=== PATIENT | female | born 1940 | race Caucasian/White ===

== ENCOUNTER 2021-12-10 16:37 | Emergency (ER) | payer BC, MEDICARE ==
[2021-12-10] MEDS ORDERED: Cardizem IV 50 MG/10 ML IV ONE ×2 (17:08→17:11)
--- NOTE | 2021-12-10 17:23 | ERPHSYRPT ---
- History of Present Illness Source: patient Exam Limitations: no limitations Patient Subjective Stated Complaint: PT HERE FOR HYPERTENSION AND ON EPISODE OF FAST HEART RATE TDAY Triage Nursing Assessment: PT ALERT, WALKED IN, RESP EASY, SKIN W/D/P, NO EDEMA NOTED, MOVES ALL EXT WELL Physician History: 81 yo wf w palpatations since 14:30 today. Pt denies chest pain/dyspnea/N/V/D/melena/hematochezia. Pt was walking in a store when it started. She arrived in [facility] on monitor but developed Afib wRVR during triage in room. IV access started, and 15mg IV Cardizem given which slowed ventricular response to 110-120. She denies h/o Afib but does have a h/o [place]/Stent/DM/hyperlipidemia. Timing/Duration: other (0) Activities at Onset: activity (Walking in store) Quality: other (No pain) Location: other (No pain) Chest Pain Radiation: no radiation Severity of Pain-Max: none Severity of Pain-Current: none Modifying Factors: Improves With: nothing Nitro Today/Relief: no nitro taken today Aspirin Treatment Today: 81 mg x 2 Associated Symptoms: No nausea, No vomiting, No abdominal pain, No shortness of breath, No heartburn, No diaphoresis, No cough, No chills, No chest pain, No fever, No headaches, No loss of appetite, No malaise, No rash, No syncope, No seizure, No weakness Prior Chest Pain/Cardiac Workup: heart attack Allergies/Adverse Reactions: morphine Allergy (Verified 12/10/21 17:06) Home Medications: Furosemide [Lasix] 1 ea DAILY 12/10/21 [History] Levothyroxine Sodium [Euthyrox] 1 ea DAILY 12/10/21 [History] Oxybutynin Chloride 10 mg Xl [Ditropan Xl 10 MG] 10 mg PO DAILY 12/10/21 [History] PANTOPRAZOLE 40 mg Tablet [Protonix 40MG Tablet] 40 mg PO QAM 12/10/21 [History] Sertraline HCl [Zoloft] 1 ea DAILY 12/10/21 [History] Hx Tetanus, Diphtheria Vaccination/Date Given: No Hx Influenza Vaccination/Date Given: Yes Hx Pneumococcal Vaccination/Date Given: Yes Immunizations Up to Date: Yes Travel Risk - International Travel Have you traveled outside of the country in past 3 weeks: No - Coronavirus Screening Are you exhibiting any of the following symptoms?: No - Vaccine Status Have you recieved a Covid-19 vaccination: Yes Extension Service Agent: Moderna - Vaccination Dates Date of 2cond Vaccination (if applicable): 2020 - Review of Systems Constitutional: No Symptoms Eyes: No Symptoms Ears, Nose, & Throat: No Symptoms Respiratory: No Symptoms Cardiac: No Symptoms, Palpitations Abdominal/Gastrointestinal: No Symptoms Genitourinary Symptoms: No Symptoms Musculoskeletal: No Symptoms Skin: No Symptoms Neurological: No Symptoms Psychological: No Symptoms Endocrine: No Symptoms Hematologic/Lymphatic: No Symptoms Immunological/Allergic: No Symptoms - Past Medical History Neurological History: No Pertinent History Cardiac History: Coronary Artery Disease, Hypertension, Myocardial Infarction ([place]), Other Respiratory History: No Pertinent History Endocrine Medical History: Diabetes Type II Musculoskeletal History: Degenerative Disk Disease, Osteoarthritis - Past Surgical History Past Surgical History: Yes Cardiac: Cardiac Catheterization, Cardiac Stent Gastrointestinal: Cholecystectomy Musculoskeletal: Orthopedic Surgery Female Surgical History: Hysterectomy Other Surgical History: RIGHT KNEE - Social History Smoking Status: Never smoker Exposure to second hand smoke: No Drug Use: none Patient Lives Alone: Yes - Nursing Vital Signs Nursing Vital Signs: Initial Vital Signs Temperature 97.2 F 12/10/21 16:53 Pulse Rate 81 12/10/21 16:53 Respiratory Rate 18 12/10/21 16:53 Blood Pressure 114/97 12/10/21 16:53 O2 Sat by Pulse Oximetry 96 12/10/21 16:53 Pain Scale Pain Intensity 0 WNL - Physical Exam General Appearance: no apparent distress Eye Exam: PERRL/EOMI, eyes nml inspection Ears, Nose, Throat Exam: normal ENT inspection, TMs normal, pharynx normal, moist mucous membranes Neck Exam: normal inspection, non-tender, supple, full range of motion, No meningismus, No mass, No Brudzinski, No Kernig's, No carotid bruit Respiratory Exam: normal breath sounds, lungs clear, airway intact, No respiratory distress Cardiovascular Exam: regular rate/rhythm, capillary refill <2 sec, other (Pt later developed Afib w RVR), No murmur Gastrointestinal/Abdomen Exam: soft, normal bowel sounds, No tenderness Back Exam: normal inspection, normal range of motion, No CVA tenderness, No vertebral tenderness Extremity Exam: normal inspection, normal range of motion Neurologic Exam: alert, oriented x 3, cooperative, transplant case manager II-XII nml as tested, normal mood/affect, nml cerebellar function, nml station & gait, sensation nml Skin Exam: normal color, warm, dry, No rash Lymphatic Exam: No adenopathy SpO2 Interpretation: normal SpO2: 96 O2 Delivery: Room Air - Course EKG Interpreted by Me: RATE (Afib w RVR/Rate 138/Prolonged QTc/Poor Rwave progression/Nonspecific ST changes) - Radiology Exams Chest X-ray Interpretation: Interpreted by me (NAD) Ordered Tests: Active Orders 24 hr Category Date Time Status EKG-ER Only STAT Care 12/10/21 17:19 Active CHEST 1 VIEW (PORTABLE) Stat Exams 12/10/21 17:35 Taken CBC W DIFF Stat Lab 12/10/21 17:20 Completed CMP Stat Lab 12/10/21 17:20 Completed NT PRO BNP Stat Lab 12/10/21 17:20 Completed PROTIME WITH INR Stat Lab 12/10/21 17:20 Completed PTT Stat Lab 12/10/21 17:20 Completed TROPONIN Q4H Lab 12/10/21 17:20 Completed TROPONIN Q4H Lab 12/10/21 21:30 Ordered TROPONIN Q4H Lab 12/11/21 01:30 Ordered Medication Summary Generic Name Dose Route Start Last Admin Trade Name Freq PRN Reason Stop Dose Admin Diltiazem HCl 100 mls @ 5 mls/hr 12/10/21 17:27 12/10/21 18:22 Cardizem Drip 100 Mg/100 Ml D5w IV 01/09/22 17:26 5 mg/hr .Q20H PRN 5 mls/hr HEART RATE/ A-FIB Administration Protocol 5 MG/HR Discontinued Medications Generic Name Dose Route Start Last Admin Trade Name Freq PRN Reason Stop Dose Admin Diltiazem HCl 15 mg 12/10/21 17:08 12/10/21 17:13 Diltiazem Hcl Iv 5 Mg/Ml Vial IV 12/10/21 17:09 15 mg STAT ONE Administration Diltiazem HCl Confirm 12/10/21 17:11 Diltiazem Hcl Iv 5 Mg/Ml Vial Administered 12/10/21 17:12 Dose 50 mg IV .STK-MED ONE Enoxaparin Sodium 90 mg 12/10/21 18:32 12/10/21 18:38 Enoxaparin Sodium 80 Mg/0.8 Ml Syringe 1 mg/kg (90 mg) 12/10/21 18:33 90 mg SQ Administration STAT ONE Enoxaparin Sodium Confirm 12/10/21 18:34 Enoxaparin Sodium 120 Mg/0.8 Ml Syringe Administered 12/10/21 18:35 Dose 120 mg SQ .STK-MED ONE Lab/Rad Data: Laboratory Result Diagrams 12/10/21 17:20 12/10/21 17:20 Laboratory Results 12/10/21 12/10/21 12/10/21 Range/Units 17:20 17:20 17:20 WBC (4.0-10.5) x10^3/uL RBC (4.1-5.4) x10^6/uL Hgb (12.0-16.0) g/dL Hct (35-47) % MCV (78-100) fL MCH (26-32) pg MCHC (32-36) g/dL RDW (11.5-14.0) % Plt Count (150-450) x10^3/uL MPV (7.5-11.0) fL Gran % (36.0-66.0) % Immature Gran % (Auto) (0.00-0.4) % Nucleat RBC Rel Count (0.00-0.1) % Eos # (Auto) (0-0.5) x10^3/uL Immature Gran # (Auto) (0.00-0.03) x10^3u/L Absolute Lymphs (auto) (1.0-4.6) x10^3/uL Absolute Monos (auto) (0.0-1.3) x10^3/uL Absolute Nucleated RBC (0.00-0.01) x10^3u/L Lymphocytes % (24.0-44.0) % Monocytes % (0.0-12.0) % Eosinophils % (0.00-5.0) % Basophils % (0.0-0.4) % Absolute Granulocytes (1.4-6.9) x10^3/uL Basophils # (0-0.4) x10^3/uL PT 11.2 (9.4-12.5) SECONDS INR 1.06 (0.8-3.0) APTT 26.1 (25.1-36.5) SECONDS Sodium 141 (137-145) mmol/L Potassium 3.8 (3.5-5.1) mmol/L Chloride 105 (98-107) mmol/L Carbon Dioxide 24 (22-30) mmol/L Anion Gap 15.7 H (5-15) MEQ/L BUN 20 H (7-17) mg/dL Creatinine 0.93 (0.52-1.04) mg/dL Estimated GFR > 60.0 ML/MIN Glucose 150 H (74-106) mg/dL Calcium 9.1 (8.4-10.2) mg/dL Total Bilirubin 1.00 (0.2-1.3) mg/dL AST 49 H (14-36) U/L ALT 25 (0-35) U/L Alkaline Phosphatase 44 (38-126) U/L Troponin I < 0.012 (0.000-0.034) ng/mL NT-Pro-B Natriuret Pep 244 (0-1800) pg/mL Serum Total Protein 7.3 (6.3-8.2) g/dL Albumin 4.4 (3.5-5.0) g/dL 12/10/21 Range/Units 17:20 WBC 7.7 (4.0-10.5) x10^3/uL RBC 4.79 (4.1-5.4) x10^6/uL Hgb 13.5 (12.0-16.0) g/dL Hct 42.7 (35-47) % MCV 89.1 (78-100) fL MCH 28.2 (26-32) pg MCHC 31.6 L (32-36) g/dL RDW 14.5 H (11.5-14.0) % Plt Count 157 (150-450) x10^3/uL MPV 10.9 (7.5-11.0) fL Gran % 38.0 (36.0-66.0) % Immature Gran % (Auto) 0.1 (0.00-0.4) % Nucleat RBC Rel Count 0.0 (0.00-0.1) % Eos # (Auto) 0.29 (0-0.5) x10^3/uL Immature Gran # (Auto) 0.01 (0.00-0.03) x10^3u/L Absolute Lymphs (auto) 3.70 (1.0-4.6) x10^3/uL Absolute Monos (auto) 0.72 (0.0-1.3) x10^3/uL Absolute Nucleated RBC 0.00 (0.00-0.01) x10^3u/L Lymphocytes % 48.1 H (24.0-44.0) % Monocytes % 9.4 (0.0-12.0) % Eosinophils % 3.8 (0.00-5.0) % Basophils % 0.6 (0.0-0.4) % Absolute Granulocytes 2.93 (1.4-6.9) x10^3/uL Basophils # 0.05 (0-0.4) x10^3/uL PT (9.4-12.5) SECONDS INR (0.8-3.0) APTT (25.1-36.5) SECONDS Sodium (137-145) mmol/L Potassium (3.5-5.1) mmol/L Chloride (98-107) mmol/L Carbon Dioxide (22-30) mmol/L Anion Gap (5-15) MEQ/L BUN (7-17) mg/dL Creatinine (0.52-1.04) mg/dL Estimated GFR ML/MIN Glucose (74-106) mg/dL Calcium (8.4-10.2) mg/dL Total Bilirubin (0.2-1.3) mg/dL AST (14-36) U/L ALT (0-35) U/L Alkaline Phosphatase (38-126) U/L Troponin I (0.000-0.034) ng/mL NT-Pro-B Natriuret Pep (0-1800) pg/mL Serum Total Protein (6.3-8.2) g/dL Albumin (3.5-5.0) g/dL - Progress Progress: improved Air Movement: good Progress Note: 12/10/21 18:[address] [facility] 15mg IV Cardizem w mild decrease in HR Cardizem drip at 5mg/Hr 12/10/21 20:01 [facility] in stable condition Counseled pt/family regarding: lab results, diagnosis, need for follow-up, rad results - Departure Departure Disposition: Transfer Clinical Impression: New onset a-fib Condition: Stable Critical Care Time: Yes Critical Care Time(excluding separately billable procedures): Critical 30-74 mins Referrals: JAGJIT TAVAREZ [Primary Care Provider] - Follow up/PCP as directed
[2021-12-10] MEDS ORDERED: CARDIZEM DRIP 100 MG/100 ML D5W 100 ML IV PRN (17:27)
[2021-12-10 17:29] LABS: Absolute Neutrophil Ct (ANC) 2.93 x10^3/uL (1.4-6.9); Basophil (Absolute #) 0.05 x10^3/uL (0-0.4); Eosinophil % 3.8 % (0.00-5.0); Eosinophil (Absolute #) 0.29 x10^3/uL (0-0.5); Hematocrit 42.7 % (35-47); Hemoglobin 13.5 g/dL (12.0-16.0); Lymphocytes % 48.1 % (24.0-44.0); Mean Cell Volume 89.1 fL (78-100); Mean Corpuscular Hemoglobin 28.2 pg (26-32); Mean Corpuscular Hgb Concent. 31.6 g/dL (32-36); Mean Platelet Volume 10.9 fL (7.5-11.0); Monocyte (Absolute #) 0.72 x10^3/uL (0.0-1.3); Monocytes % 9.4 % (0.0-12.0); Platelet Count 157 x10^3/uL (150-450); Red Blood Count 4.79 x10^6/uL (4.1-5.4); Red Cell Distribution Width 14.5 % (11.5-14.0); White Blood Count 7.7 x10^3/uL (4.0-10.5)
[2021-12-10 17:57] LABS: ALBUMIN 4.4 g/dL (3.5-5.0); ALKALINE PHOSPHATASE 44 U/L (38-126); ANION GAP 15.7 MEQ/L (5-15); BLOOD UREA NITROGEN 20 mg/dL (7-17); CHLORIDE 105 mmol/L (98-107); Calcium 9.1 mg/dL (8.4-10.2); Carbon Dioxide 24 mmol/L (22-30); Creatinine 1 0.93 mg/dL (0.52-1.04); EST GLOMERULAR FILTRATION RATE > 60.0 ML/MIN; Glucose 150 mg/dL (74-106); Potassium 3.8 mmol/L (3.5-5.1); SGOT/AST 49 U/L (14-36); SGPT/ALT 25 U/L (0-35); SODIUM 141 mmol/L (137-145); Total Protein 7.3 g/dL (6.3-8.2)
[2021-12-10 17:59] LABS: INR 1.06 (0.8-3.0); PROTIME 11.2 SECONDS (9.4-12.5); PTT 26.1 SECONDS (25.1-36.5)
[2021-12-10 18:08] LABS: NT PRO BNP 244 pg/mL (0-1800)
[2021-12-10 18:17] VITALS: O2SAT 96
[2021-12-10] MEDS ORDERED: CARDIZEM DRIP 100 MG/100 ML D5W 100 ML IV ONE (18:18)
[2021-12-10] MEDS ORDERED: ENOXAPARIN SODIUM SQ ONE ×2 (18:32→18:34)
[2021-12-10 19:10] VITALS: BP 138/68; PULSE 118
--- NOTE | 2021-12-11 08:38 | XRAY ---
Indication: Palpitations. Comparison: February 20, 2019 Portable chest demonstrates interval clearing of left base airspace opacity with now minimal fibrosis/scarring. Remaining heart and lungs unremarkable again with tortuous descending aorta. Bony thorax intact again with osteopenia, degenerative changes, and scoliosis. Impression: Nonacute chest with chronic features.
== END 2021-12-10 19:40 | disposition short-term general hospital (02) ==
LOC: ED 16:37
DX: I48.91 Unspecified atrial fibrillation (principal); E11.9 Type 2 diabetes mellitus without complications; E78.5 Hyperlipidemia, unspecified; I10 Essential (primary) hypertension; Z79.899 Other long term (current) drug therapy
CPT/HCPCS: 36415; 71045; 80053; 83880; 84484; 85025; 85610; 85730; 93005; 96365; 96372; 96374; 99284; 99291; J1650

== ENCOUNTER 2022-01-18 11:11 | Emergency (ER) | payer BC, MEDICARE ==
[2022-01-18] MEDS ORDERED: Zofran 4 MG/2 ML VIAL IV ONE (11:29)
[2022-01-18] MEDS ORDERED: Hydromorphone 1 mg/ml Injection IV ONE ×2 (11:29→13:21)
[2022-01-18] MEDS ORDERED: Sodium Chloride 0.9% 1000 ML 1,000 ML IV SCH ×2 (11:30→14:00)
[2022-01-18] MEDS ORDERED: Zofran 4 MG/2 ML VIAL ONE (11:32)
[2022-01-18] MEDS ORDERED: Hydromorphone 1 mg/ml Injection ONE ×2 (11:33→13:13)
[2022-01-18 11:43] LABS: Absolute Neutrophil Ct (ANC) 2.86 x10^3/uL (1.4-6.9); Basophil (Absolute #) 0.04 x10^3/uL (0-0.4); Eosinophil % 3.5 % (0.00-5.0); Eosinophil (Absolute #) 0.26 x10^3/uL (0-0.5); Hemoglobin 13.8 g/dL (12.0-16.0); Lymphocyte (Absolute #) 3.65 x10^3/uL (1.0-4.6); Lymphocytes % 48.9 % (24.0-44.0); Mean Corpuscular Hemoglobin 28.2 pg (26-32); Mean Corpuscular Hgb Concent. 31.4 g/dL (32-36); Mean Platelet Volume 10.9 fL (7.5-11.0); Monocyte (Absolute #) 0.65 x10^3/uL (0.0-1.3); Monocytes % 8.7 % (0.0-12.0); Neutrophil % 38.3 % (36.0-66.0); Platelet Count 156 x10^3/uL (150-450); Red Blood Count 4.89 x10^6/uL (4.1-5.4); Red Cell Distribution Width 13.9 % (11.5-14.0); White Blood Count 7.5 x10^3/uL (4.0-10.5)
[2022-01-18 11:56] LABS: ALBUMIN 4.4 g/dL (3.5-5.0); ANION GAP 13.2 MEQ/L (5-15); BILIRUBIN,TOTAL 1.2 mg/dL (0.2-1.3); Calcium 9.3 mg/dL (8.4-10.2); Creatinine 1 0.97 mg/dL (0.52-1.04); EST GLOMERULAR FILTRATION RATE 58.4 ML/MIN; Total Protein 7.6 g/dL (6.3-8.2)
--- NOTE | 2022-01-18 12:31 | ERPHSYRPT ---
- History of Present Illness Time Seen by Provider: 01/18/22 11:24 Historian: patient Exam Limitations: no limitations Patient Subjective Stated Complaint: pt here for upper abd pain that radiates to back.with nausea, pain started at 0730 today Triage Nursing Assessment: pt alert, resp easy, skin w/d/p ,no edema, vomiting, abd soft but tneder to touch Physician History: 81 years old female with history of hypothyroidism, atrial fibrillation on Eliquis presented in the ER with chief complaint of abdominal pain Since 7 AM today. Patient reports pain started initially in the left lower quadrant and gradually moved to left upper quadrant and upper abdomen, moderate to severe sharp, aggravated with movements palpation and no significant relieving factors. Patient reports nausea with one episode of vomiting. Denies any diarrhea or constipation. Does have history of hysterectomy and cholecystectomy. Denies fe janiya or chills. No history of AAA. Timing/Duration: today, constant, gradual onset, worse Activities at Onset: rest Quality: sharpness Abdominal Pain Onset Location: LUQ, LLQ, epigastric Severity of Pain-Max: severe Severity of Pain-Current: severe Modifying Factors: Worsens With: movement, palpation Associated Symptoms: nausea, vomiting Previous symptoms: no prior history Allergies/Adverse Reactions: morphine Allergy (Verified 01/18/22 11:20) Home Medications: Furosemide [Lasix] 1 ea DAILY 12/10/21 [History] Levothyroxine Sodium [Euthyrox] 1 ea DAILY 12/10/21 [History] Oxybutynin Chloride 10 mg Xl [Ditropan Xl 10 MG] 10 mg PO DAILY 12/10/21 [History] PANTOPRAZOLE 40 mg Tablet [Protonix 40MG Tablet] 40 mg PO QAM 12/10/21 [History] Sertraline HCl [Zoloft] 1 ea DAILY 12/10/21 [History] Apixaban [Eliquis 5 mg Tablet] 1 ea BID 01/18/22 [History] Hx Tetanus, Diphtheria Vaccination/Date Given: No Hx Influenza Vaccination/Date Given: Yes Hx Pneumococcal Vaccination/Date Given: Yes Immunizations Up to Date: Yes Travel Risk - International Travel Have you traveled outside of the country in past 3 weeks: No - Coronavirus Screening Are you exhibiting any of the following symptoms?: No Close contact with a COVID-19 positive Pt in past 14-21 Days: No - Vaccine Status Have you recieved a Covid-19 vaccination: Yes Pst Specialist: Moderna - Vaccination Dates Date of 2cond Vaccination (if applicable): 2020 - Review of Systems Constitutional: No Symptoms Eyes: No Symptoms Ears, Nose, & Throat: No Symptoms Respiratory: No Symptoms Cardiac: No Symptoms Abdominal/Gastrointestinal: Abdominal Pain, Nausea, Vomiting Genitourinary Symptoms: No Symptoms Musculoskeletal: No Symptoms Skin: No Symptoms Neurological: No Symptoms Psychological: No Symptoms Endocrine: No Symptoms Hematologic/Lymphatic: No Symptoms Immunological/Allergic: No Symptoms - Past Medical History Neurological History: No Pertinent History Cardiac History: Coronary Artery Disease, Hypertension, Myocardial Infarction ([place]), Other Respiratory History: No Pertinent History Endocrine Medical History: Diabetes Type II Musculoskeletal History: Degenerative Disk Disease, Osteoarthritis - Past Surgical History Past Surgical History: Yes Cardiac: Cardiac Catheterization, Cardiac Stent Gastrointestinal: Cholecystectomy Musculoskeletal: Orthopedic Surgery Female Surgical History: Hysterectomy Other Surgical History: RIGHT KNEE - Social History Smoking Status: Never smoker Exposure to second hand smoke: No Drug Use: none Patient Lives Alone: Yes - Nursing Vital Signs Nursing Vital Signs: Initial Vital Signs Temperature 97.4 F 01/18/22 11:13 Pulse Rate 54 L 01/18/22 11:13 Blood Pressure 182/83 01/18/22 11:13 O2 Sat by Pulse Oximetry 98 01/18/22 11:13 Pain Scale Pain Intensity 6 - Physical Exam General Appearance: no apparent distress, alert Eye Exam: PERRL/EOMI Ears, Nose, Throat Exam: normal ENT inspection Neck Exam: normal inspection, full range of motion Respiratory Exam: normal breath sounds, lungs clear Cardiovascular Exam: regular rate/rhythm, normal heart sounds Gastrointestinal/Abdomen Exam: soft, normal bowel sounds, tenderness (generalized), guarding Back Exam: normal inspection, normal range of motion Extremity Exam: normal inspection, normal range of motion Neurologic Exam: alert, oriented x 3, cooperative Skin Exam: normal color SpO2 Interpretation: normal SpO2: 98 O2 Delivery: Room Air Ordered Tests: Active Orders 24 hr Category Date Time Status EKG-ER Only STAT Care 01/18/22 11:29 Active Gastric Tube Insertion STAT Care 01/18/22 13:36 Active IV Insertion STAT Care 01/18/22 11:29 Active NPO (ED) STAT Care 01/18/22 11:29 Active ABDOMEN AND PELVIS W CONTRAST [CT] Stat Exams 01/18/22 12:21 Taken AMYLASE Stat Lab 01/18/22 11:40 Completed CBC W DIFF Stat Lab 01/18/22 11:40 Completed CMP Stat Lab 01/18/22 11:40 Completed LIPASE Stat Lab 01/18/22 11:40 Completed Lactic Acid Stat Lab 01/18/22 11:35 Completed Lactic Acid Stat Lab 01/18/22 13:45 Received TROPONIN Q4H Lab 01/18/22 11:40 Completed TROPONIN Q4H Lab 01/18/22 15:30 Ordered TROPONIN Q4H Lab 01/18/22 19:30 Ordered UA W/RFX CULTURE Stat Lab 01/18/22 Ordered Medication Summary Generic Name Dose Route Start Last Admin Trade Name Freq PRN Reason Stop Dose Admin Sodium Chloride 1,000 mls @ 125 mls/hr 01/18/22 11:30 01/18/22 13:55 Sodium Chloride 0.9% 1000 Ml IV 02/17/22 11:29 Infused .Q8H LINDSAY Infusion Sodium Chloride 1,000 mls @ 125 mls/hr 01/18/22 14:00 01/18/22 13:49 Sodium Chloride 0.9% 1000 Ml IV 02/17/22 13:59 125 mls/hr .Q8H LINDSAY Administration Discontinued Medications Generic Name Dose Route Start Last Admin Trade Name Freq PRN Reason Stop Dose Admin Hydromorphone HCl 0.5 mg 01/18/22 11:29 01/18/22 11:34 Hydromorphone 1 Mg/1ml Inj 1 Mg/Ml Syringe IV 01/18/22 11:30 0.5 mg STAT ONE Administration Hydromorphone HCl Confirm 01/18/22 11:33 Hydromorphone 1 Mg/1ml Inj 1 Mg/Ml Syringe Administered 01/18/22 11:34 Dose 1 mg .ROUTE .STK-MED ONE Hydromorphone HCl Confirm 01/18/22 13:13 Hydromorphone 1 Mg/1ml Inj 1 Mg/Ml Syringe Administered 01/18/22 13:14 Dose 1 mg .ROUTE .STK-MED ONE Hydromorphone HCl 0.5 mg 01/18/22 13:21 01/18/22 13:30 Hydromorphone 1 Mg/1ml Inj 1 Mg/Ml Syringe IV 01/18/22 13:22 0.5 mg STAT ONE Administration Ondansetron HCl 4 mg 01/18/22 11:29 01/18/22 11:34 Ondansetron Hcl 4 Mg/2 Ml Vial IV 01/18/22 11:30 4 mg STAT ONE Administration Ondansetron HCl Confirm 01/18/22 11:32 Ondansetron Hcl 4 Mg/2 Ml Vial Administered 01/18/22 11:33 Dose 4 mg .ROUTE .STK-MED ONE Lab/Rad Data: Laboratory Result Diagrams 01/18/22 11:40 01/18/22 11:40 Laboratory Results 01/18/22 01/18/22 01/18/22 Range/Units 11:40 11:40 11:40 WBC 7.5 (4.0-10.5) x10^3/uL RBC 4.89 (4.1-5.4) x10^6/uL Hgb 13.8 (12.0-16.0) g/dL Hct 44.0 (35-47) % MCV 90.0 (78-100) fL MCH 28.2 (26-32) pg MCHC 31.4 L (32-36) g/dL RDW 13.9 (11.5-14.0) % Plt Count 156 (150-450) x10^3/uL MPV 10.9 (7.5-11.0) fL Gran % 38.3 (36.0-66.0) % Immature Gran % (Auto) 0.1 (0.00-0.4) % Nucleat RBC Rel Count 0.0 (0.00-0.1) % Eos # (Auto) 0.26 (0-0.5) x10^3/uL Immature Gran # (Auto) 0.01 (0.00-0.03) x10^3u/L Absolute Lymphs (auto) 3.65 (1.0-4.6) x10^3/uL Absolute Monos (auto) 0.65 (0.0-1.3) x10^3/uL Absolute Nucleated RBC 0.00 (0.00-0.01) x10^3u/L Lymphocytes % 48.9 H (24.0-44.0) % Monocytes % 8.7 (0.0-12.0) % Eosinophils % 3.5 (0.00-5.0) % Basophils % 0.5 (0.0-0.4) % Absolute Granulocytes 2.86 (1.4-6.9) x10^3/uL Basophils # 0.04 (0-0.4) x10^3/uL Sodium 138 (137-145) mmol/L Potassium 4.0 (3.5-5.1) mmol/L Chloride 101 (98-107) mmol/L Carbon Dioxide 29 (22-30) mmol/L Anion Gap 13.2 (5-15) MEQ/L BUN 15 (7-17) mg/dL Creatinine 0.97 (0.52-1.04) mg/dL Estimated GFR 58.4 ML/MIN Glucose 108 H (74-106) mg/dL Lactic Acid (0.4-2.0) Calcium 9.3 (8.4-10.2) mg/dL Total Bilirubin 1.20 (0.2-1.3) mg/dL AST 41 H (14-36) U/L ALT 29 (0-35) U/L Alkaline Phosphatase 47 (38-126) U/L Troponin I < 0.012 (0.000-0.034) ng/mL Serum Total Protein 7.6 (6.3-8.2) g/dL Albumin 4.4 (3.5-5.0) g/dL Amylase 75 (30-110) U/L Lipase 61 (23-300) U/L // Range/Units 11:35 WBC (4.0-10.5) x10^3/uL RBC (4.1-5.4) x10^6/uL Hgb (12.0-16.0) g/dL Hct (35-47) % MCV (78-100) fL MCH (26-32) pg MCHC (32-36) g/dL RDW (11.5-14.0) % Plt Count (150-450) x10^3/uL MPV (7.5-11.0) fL Gran % (36.0-66.0) % Immature Gran % (Auto) (0.00-0.4) % Nucleat RBC Rel Count (0.00-0.1) % Eos # (Auto) (0-0.5) x10^3/uL Immature Gran # (Auto) (0.00-0.03) x10^3u/L Absolute Lymphs (auto) (1.0-4.6) x10^3/uL Absolute Monos (auto) (0.0-1.3) x10^3/uL Absolute Nucleated RBC (0.00-0.01) x10^3u/L Lymphocytes % (24.0-44.0) % Monocytes % (0.0-12.0) % Eosinophils % (0.00-5.0) % Basophils % (0.0-0.4) % Absolute Granulocytes (1.4-6.9) x10^3/uL Basophils # (0-0.4) x10^3/uL Sodium (137-145) mmol/L Potassium (3.5-5.1) mmol/L Chloride (98-107) mmol/L Carbon Dioxide (22-30) mmol/L Anion Gap (5-15) MEQ/L BUN (7-17) mg/dL Creatinine (0.52-1.04) mg/dL Estimated GFR ML/MIN Glucose (74-106) mg/dL Lactic Acid 2.1 H (0.4-2.0) Calcium (8.4-10.2) mg/dL Total Bilirubin (0.2-1.3) mg/dL AST (14-36) U/L ALT (0-35) U/L Alkaline Phosphatase (38-126) U/L Troponin I (0.000-0.034) ng/mL Serum Total Protein (6.3-8.2) g/dL Albumin (3.5-5.0) g/dL Amylase (30-110) U/L Lipase (23-300) U/L - Progress Progress: improved, re-examined Progress Note: 01/18/22 13:21 81 years old is evaluated for abdominal pain sudden onset this morning. She has positive peritoneal signs. I have obtained bedside ultrasound and no obvious AAA seen. She is given fluids and symptomatic treatment, on reevaluation pain is better but not completely resolved. Patient has normal white count, grossly unremarkable chemistries. CT abdomen pelvis with contrast showed dilated loops of bowel in the pelvis with fluid-filled loops with surrounding inflammatory changes almost extending to a central point possibly even a pedicle in the right lower quadrant there is a small amount of fluid in the right lower quadrant. Appendix is normal. Findings suspicious for internal hernia/adhesions. Discussed with Dr. Germaine Wright general surgeon on-call for [facility], since patient is on Eliquis and no reversal agent/factor available here. Recommended transfer to [place] to's use immediately if patient needs emergent surgical intervention. NG tube would be placed then. 01/18/22 14:[address] [facility] and Dr. Rojas general surgeon on-call, reviewed history, work-up and patient is excepted for transfer. Counseled pt/family regarding: lab results, diagnosis, rad results - Departure Departure Disposition: Transfer Clinical Impression: Intestinal obstruction, Anticoagulant long-term use Condition: Stable Critical Care Time: No Referrals: JAGJIT TAVAREZ [Primary Care Provider] - Follow up/PCP as directed
[2022-01-18 15:31] VITALS: BP 152/69; PULSE 58; O2SAT 97
--- NOTE | 2022-01-18 19:14 | XRAY ---
Indication: Left abdomen pain. Multiple contiguous axial images obtained through the abdomen and pelvis using 80 cc Isovue 370 contrast. Comparison: None Lung bases demonstrates mild bibasilar subsegmental atelectasis/scarring. Heart not enlarged. Small hiatal hernia. Noncontrasted stomach and bowel loops appear nonobstructed. Several ileal bowel loops are mildly fluid distended with wall thickening, enhancement, and stranding greatest right lower quadrant favoring enteritis. Tiny right upper/lower quadrant free fluid. No free air. Normal air-filled appendix. Normal colonic bowel gas with incidental sigmoid diverticulosis. Both kidneys enhance and excrete with 7.1 cm left renal and a 6 mm right renal cysts. Previous cholecystectomy and hysterectomy. Remaining liver, pancreas, spleen, adrenal glands, kidneys, ureters, and bladder are unremarkable. Moderate scattered aortoiliac calcifications. No AAA or pathological retroperitoneal lymphadenopathy. Osseous structures intact with osteopenia, moderate texture scoliosis centered at thoracolumbar junction, moderate/advanced multilevel thoracolumbar degenerative spondylosis and 8-9 mm L5 anterolisthesis. Impression: 1. Abnormal fluid distended ileal bowel loops with wall thickening, enhancement, and stranding favoring enteritis. Tiny free fluid presumed reactive. 2. Incidental sigmoid diverticulosis, bilateral renal cysts, arteriosclerotic disease, and chronic bony findings. Comment: Preliminary interpretation made by [facility]. No critical discrepancy.
== END 2022-01-18 15:48 | disposition short-term general hospital (02) ==
LOC: ED 11:11
DX: K56.609 Unspecified intestinal obstruction, unspecified as to partial versus complete obstruction (principal); Z79.01 Long term (current) use of anticoagulants; R10.12 Left upper quadrant pain; R10.13 Epigastric pain; R11.2 Nausea with vomiting, unspecified; I10 Essential (primary) hypertension; E11.9 Type 2 diabetes mellitus without complications; Z79.899 Other long term (current) drug therapy
CPT/HCPCS: 36000; 36415; 74177; 80053; 82150; 83605; 83690; 84484; 85025; 93005; 96374; 96375; 96376; 99285; J1170; J2405

== ENCOUNTER 2022-04-24 12:07 | Emergency (ER) | payer MEDICARE ==
[2022-04-24 12:54] LABS: Absolute Neutrophil Ct (ANC) 3.92 x10^3/uL (1.4-6.9); BASOPHIL % 0.6 % (0.0-0.4); Basophil (Absolute #) 0.08 x10^3/uL (0-0.4); Eosinophil % 3.1 % (0.00-5.0); Eosinophil (Absolute #) 0.44 x10^3/uL (0-0.5); Hematocrit 41.5 % (35-47); Hemoglobin 13.1 g/dL (12.0-16.0); IMMATURE GRAN # 0.03 x10^3u/L (0.00-0.03); IMMATURE GRAN % 0.2 % (0.00-0.4); Lymphocytes % 59.6 % (24.0-44.0); Mean Cell Volume 91.6 fL (78-100); Mean Corpuscular Hemoglobin 28.9 pg (26-32); Mean Corpuscular Hgb Concent. 31.6 g/dL (32-36); Mean Platelet Volume 11.8 fL (7.5-11.0); Monocyte (Absolute #) 1.23 x10^3/uL (0.0-1.3); Monocytes % 8.7 % (0.0-12.0); Neutrophil % 27.8 % (36.0-66.0); Platelet Count 182 x10^3/uL (150-450); Red Blood Count 4.53 x10^6/uL (4.1-5.4); Red Cell Distribution Width 14.8 % (11.5-14.0); White Blood Count 14.1 x10^3/uL (4.0-10.5)
--- NOTE | 2022-04-24 12:55 | ERPHSYRPT ---
- History of Present Illness Time Seen by Provider: 04/24/22 12:50 Source: patient, family Exam Limitations: no limitations Patient Subjective Stated Complaint: "not acting right when arriving to lunch" per her friend who was meeting her for lunch Triage Nursing Assessment: pt to ED c/o "not acting right" per pts friend who was meeting her for lunch. pt states she does feel rather funny. hx DM, did eat breakfast around 0700 this am but nothing PO since then. FSBS 42 on arrival to ED, pt did not check sugar at home before leaving house. friend states she was unsteady on feet and "trying to pass out on me." pt given orange juice and crackers on arrival while IV was being accessed. pt tolerated PO well. Physician History: Independent Hx interviews from friend/bystander collaborating Hx. 81 yr old female was headed to restaurant with friend and felt weak and friend brought her here. Hx Diabetes on Metformin and Glipizide ( possible recent change) pt initially unaware of glipizide but it is on file. Denies insulin use or prior episodes, but has told friend that the sugars have been in the 60 s recently and she does not know why. Hx of Afib but this is well controlled in 60s on monitor and on elliquis to prevent clots. Denies any dizziness, Headache, CP, SOBreath N/V Fever, Abd pain or trauma. Glucose in 40s initially and inproved into 50s, on oral feeding , giving half bolus to bump up faster. No neuro deficts, fundi benign. normal mental status. . No hx of trauma. Timing/Duration: today Severity: moderate Modifying Factors: Improves With: eating Associated Symptoms: denies symptoms Allergies/Adverse Reactions: morphine Allergy (Verified 04/24/22 12:17) Home Medications: Furosemide [Lasix] 1 ea PO DAILY 12/10/21 [History] Levothyroxine Sodium [Euthyrox] 1 ea DAILY 12/10/21 [History] Oxybutynin Chloride 10 mg Xl [Ditropan Xl 10 MG] 10 mg PO DAILY 12/10/21 [History] PANTOPRAZOLE 40 mg Tablet [Protonix 40MG Tablet] 40 mg PO QAM 12/10/21 [History] Sertraline HCl [Zoloft] 1 ea DAILY 12/10/21 [History] Apixaban [Eliquis 5 mg Tablet] 1 ea PO BID 01/18/22 [History] Metformin HCl 500 mg [Glucophage 500 MG] 500 mg PO BIDWM 04/24/22 [History] Hx Tetanus, Diphtheria Vaccination/Date Given: No Hx Influenza Vaccination/Date Given: Yes Hx Pneumococcal Vaccination/Date Given: Yes Immunizations Up to Date: Yes Travel Risk - International Travel Have you traveled outside of the country in past 3 weeks: No - Coronavirus Screening Are you exhibiting any of the following symptoms?: No Close contact with a COVID-19 positive Pt in past 14-21 Days: No - Vaccine Status Have you recieved a Covid-19 vaccination: Yes Acute Dialysis Registered Nurse: [id number] - Vaccination Dates Date of 2cond Vaccination (if applicable): 2020 - Review of Systems Constitutional: No Fever, No Chills Eyes: No Symptoms Ears, Nose, & Throat: No Symptoms Respiratory: No Cough, No Dyspnea Cardiac: No Chest Pain, No Edema, No Syncope Abdominal/Gastrointestinal: No Abdominal Pain, No Nausea, No Vomiting, No Diarrhea Genitourinary Symptoms: No Dysuria Musculoskeletal: No Back Pain, No Neck Pain Skin: No Rash Neurological: No Dizziness, No Focal Weakness, No Sensory Changes Psychological: No Symptoms Endocrine: No Symptoms Hematologic/Lymphatic: No Symptoms Immunological/Allergic: No Symptoms All Other Systems: Reviewed and Negative - Past Medical History Pertinent Past Medical History: Yes Neurological History: No Pertinent History ENT History: No Pertinent History Cardiac History: Coronary Artery Disease, Hypertension, Myocardial Infarction (ID), Other Respiratory History: No Pertinent History Endocrine Medical History: Diabetes Type II Musculoskeletal History: Degenerative Disk Disease, Osteoarthritis - Past Surgical History Past Surgical History: Yes Cardiac: Cardiac Catheterization, Cardiac Stent Gastrointestinal: Cholecystectomy Musculoskeletal: Orthopedic Surgery Female Surgical History: Hysterectomy Other Surgical History: RIGHT KNEE - Social History Smoking Status: Never smoker Exposure to second hand smoke: No Drug Use: none Patient Lives Alone: Yes - Nursing Vital Signs Nursing Vital Signs: Initial Vital Signs Temperature 98.3 F 04/24/22 12:20 Pulse Rate 63 04/24/22 12:20 Respiratory Rate 04/24/22 12:20 Blood Pressure 152/84 04/24/22 12:20 O2 Sat by Pulse Oximetry 93 L 04/24/22 12:20 Pain Scale Pain Intensity 0 - Physical Exam General Appearance: no apparent distress, alert Eye Exam: PERRL/EOMI, eyes nml inspection Ears, Nose, Throat Exam: normal ENT inspection, TMs normal, pharynx normal, moist mucous membranes Neck Exam: normal inspection, non-tender, supple, full range of motion Respiratory Exam: normal breath sounds, lungs clear, No respiratory distress Cardiovascular Exam: regular rate/rhythm, normal heart sounds, normal peripheral pulses Gastrointestinal/Abdomen Exam: soft, normal bowel sounds, No tenderness, No mass Pelvic Exam: deferred Rectal Exam: deferred Back Exam: normal inspection, normal range of motion, No CVA tenderness, No vertebral tenderness Extremity Exam: normal inspection, normal range of motion, pelvis stable Neurologic Exam: alert, oriented x 3, cooperative, cook helper dessert II-XII nml as tested, normal mood/affect, nml cerebellar function, nml station & gait, sensation nml, No motor deficits, No sensory deficit, No disoriented, No confusion, No facial droop, No slurred speech Skin Exam: normal color, warm, dry, No rash Lymphatic Exam: No adenopathy SpO2 Interpretation: borderline oxygenation SpO2: 93 O2 Delivery: Room Air - Course Nursing assessment & vital signs reviewed: Yes EKG Interpreted by Me: Sinus Rhythm, Left State Line Deviation, Non-specific ST Changes, Other (poor r wave progression and IVCD) Ordered Tests: Active Orders 24 hr Category Date Time Status Computer Science Professor STAT Care 04/24/22 12:48 Active EKG-ER Only STAT Care 04/24/22 12:45 Active IV Insertion STAT Care 04/24/22 12:45 Active POCT Glucose Check STAT Care 04/24/22 12:48 Active Pulse Oximetry (ED) STAT Care 04/24/22 12:48 Active CHEST 1 VIEW (PORTABLE) Stat Exams 04/24/22 12:46 Completed CBC W DIFF Stat Lab 04/24/22 12:30 Completed CMP Stat Lab 04/24/22 12:30 Completed ETHYL ALCOHOL Stat Lab 04/24/22 12:59 Completed Lactic Acid Stat Lab 04/24/22 12:45 Completed Lactic Acid Stat Lab 04/24/22 14:53 Received POCT GLUCOSE Stat Lab 04/24/22 12:15 Completed POCT GLUCOSE Stat Lab 04/24/22 12:37 Completed POCT GLUCOSE Stat Lab 04/24/22 12:57 Completed POCT GLUCOSE Stat Lab 04/24/22 13:57 Completed POCT GLUCOSE Stat Lab 04/24/22 15:09 Completed TROPONIN Q4H Lab 04/24/22 12:30 Completed TROPONIN Q4H Lab 04/24/22 17:00 Ordered TROPONIN Q4H Lab 04/24/22 21:00 Ordered UA W/RFX UR CULTURE Stat Lab 04/24/22 15:06 Completed Urine Triage Profile Stat Lab 04/24/22 15:06 Completed Medication Summary Generic Name Dose Route Start Last Admin Trade Name Freq PRN Reason Stop Dose Admin Dextrose/Sodium Chloride 1,000 mls @ 100 mls/hr 04/24/22 13:00 04/24/22 12:56 Dextrose 5%-Ns Iv Solution 1000 Ml IV 05/24/22 12:59 100 mls/hr .Q10H LINDSAY Administration Discontinued Medications Generic Name Dose Route Start Last Admin Trade Name Freq PRN Reason Stop Dose Admin Dextrose 50 ml 04/24/22 12:58 04/24/22 13:00 Dextrose 50%-Water 50 Ml Abboject IV 04/24/22 12:59 50 ml STAT ONE Administration Dextrose Confirm 04/24/22 12:59 Dextrose 50%-Water 50 Ml Abboject Administered 04/24/22 13:00 Dose 50 ml IV .[email or web address] [facility] [facility] Lab/Rad Data: Laboratory Result Diagrams 04/24/22 12:30 04/24/22 12:30 Laboratory Results 04/24/22 04/24/22 04/24/22 Range/Units 15:09 15:06 15:06 WBC (4.0-10.5) x10^3/uL RBC (4.1-5.4) x10^6/uL Hgb (12.0-16.0) g/dL Hct (35-47) % MCV (78-100) fL MCH (26-32) pg MCHC (32-36) g/dL RDW (11.5-14.0) % Plt Count (150-450) x10^3/uL MPV (7.5-11.0) fL Gran % (36.0-66.0) % Immature Gran % (Auto) (0.00-0.4) % Nucleat RBC Rel Count (0.00-0.1) % Eos # (Auto) (0-0.5) x10^3/uL Immature Gran # (Auto) (0.00-0.03) x10^3u/L Absolute Lymphs (auto) (1.0-4.6) x10^3/uL Absolute Monos (auto) (0.0-1.3) x10^3/uL Absolute Nucleated RBC (0.00-0.01) x10^3u/L Lymphocytes % (24.0-44.0) % Monocytes % (0.0-12.0) % Eosinophils % (0.00-5.0) % Basophils % (0.0-0.4) % Absolute Granulocytes (1.4-6.9) x10^3/uL Basophils # (0-0.4) x10^3/uL Sodium (137-145) mmol/L Potassium (3.5-5.1) mmol/L Chloride (98-107) mmol/L Carbon Dioxide (22-30) mmol/L Anion Gap (5-15) MEQ/L BUN (7-17) mg/dL Creatinine (0.52-1.04) mg/dL Estimated GFR ML/MIN Glucose (74-106) mg/dL POC Glucometer 147 H (50 to 500) mg/dL Lactic Acid (0.4-2.0) Calcium (8.4-10.2) mg/dL Total Bilirubin (0.2-1.3) mg/dL AST (14-36) U/L ALT (0-35) U/L Alkaline Phosphatase (38-126) U/L Troponin I (0.000-0.034) ng/mL Serum Total Protein (6.3-8.2) g/dL Albumin (3.5-5.0) g/dL Urine Color Yellow (Yellow) Urine Appearance Clear (Clear) Urine pH 5.5 (4.6-8.0) Ur Specific [place] 1.010 (1.005-1.030) Urine Protein 30 (Negative) Urine Glucose (UA) 100 A (Negative) mg/dL Urine Ketones Negative (Negative) Urine Blood Trace (Negative) Urine Nitrite Negative (Negative) Urine Bilirubin Negative (Negative) Urine Urobilinogen 0.2 (0.2) mg/dL Ur Leukocyte Esterase Negative (Negative) U Hyaline Cast (Auto) 3-5 A (0-2) /LPF Urine Microscopic RBC 0-2 (0-5) /HPF Urine Microscopic WBC 0-2 (0-5) /HPF Ur Epithelial Cells None Seen (None Seen) /HPF Urine Bacteria None Seen (None Seen) /HPF Urine Culture Reflexed NO (NO) Urine Opiates Level NEGATIVE (NEGATIVE) Ur Methadone NEGATIVE (NEGATIVE) Urine Barbiturates NEGATIVE (NEGATIVE) Ur Phencyclidine (PCP) NEGATIVE (NEGATIVE) Urine Amphetamine NEGATIVE (NEGATIVE) U Benzodiazepine Level NEGATIVE (NEGATIVE) Urine Cocaine NEGATIVE (NEGATIVE) Urine Marijuana (THC) NEGATIVE (NEGATIVE) Ethyl Alcohol (0-10) mg/dL Slides for Path Review 04/24/22 04/24/22 04/24/22 Range/Units 13:57 12:59 12:57 WBC (4.0-10.5) x10^3/uL RBC (4.1-5.4) x10^6/uL Hgb (12.0-16.0) g/dL Hct (35-47) % MCV (78-100) fL MCH (26-32) pg MCHC (32-36) g/dL RDW (11.5-14.0) % Plt Count (150-450) x10^3/uL MPV (7.5-11.0) fL Gran % (36.0-66.0) % Immature Gran % (Auto) (0.00-0.4) % Nucleat RBC Rel Count (0.00-0.1) % Eos # (Auto) (0-0.5) x10^3/uL Immature Gran # (Auto) (0.00-0.03) x10^3u/L Absolute Lymphs (auto) (1.0-4.6) x10^3/uL Absolute Monos (auto) (0.0-1.3) x10^3/uL Absolute Nucleated RBC (0.00-0.01) x10^3u/L Lymphocytes % (24.0-44.0) % Monocytes % (0.0-12.0) % Eosinophils % (0.00-5.0) % Basophils % (0.0-0.4) % Absolute Granulocytes (1.4-6.9) x10^3/uL Basophils # (0-0.4) x10^3/uL Sodium (137-145) mmol/L Potassium (3.5-5.1) mmol/L Chloride (98-107) mmol/L Carbon Dioxide (22-30) mmol/L Anion Gap (5-15) MEQ/L BUN (7-17) mg/dL Creatinine (0.52-1.04) mg/dL Estimated GFR ML/MIN Glucose (74-106) mg/dL POC Glucometer 181 H 55 L (50 to 500) mg/dL Lactic Acid (0.4-2.0) Calcium (8.4-10.2) mg/dL Total Bilirubin (0.2-1.3) mg/dL AST (14-36) U/L ALT (0-35) U/L Alkaline Phosphatase (38-126) U/L Troponin I (0.000-0.034) ng/mL Serum Total Protein (6.3-8.2) g/dL Albumin (3.5-5.0) g/dL Urine Color (Yellow) Urine Appearance (Clear) Urine pH (4.6-8.0) Ur Specific [place] (1.005-1.030) Urine Protein (Negative) Urine Glucose (UA) (Negative) mg/dL Urine Ketones (Negative) Urine Blood (Negative) Urine Nitrite (Negative) Urine Bilirubin (Negative) Urine Urobilinogen (0.2) mg/dL Ur Leukocyte Esterase (Negative) U Hyaline Cast (Auto) (0-2) /LPF Urine Microscopic RBC (0-5) /HPF Urine Microscopic WBC (0-5) /HPF Ur Epithelial Cells (None Seen) /HPF Urine Bacteria (None Seen) /HPF Urine Culture Reflexed (NO) Urine Opiates Level (NEGATIVE) Ur Methadone (NEGATIVE) Urine Barbiturates (NEGATIVE) Ur Phencyclidine (PCP) (NEGATIVE) Urine Amphetamine (NEGATIVE) U Benzodiazepine Level (NEGATIVE) Urine Cocaine (NEGATIVE) Urine Marijuana (THC) (NEGATIVE) Ethyl Alcohol < 10 (0-10) mg/dL Slides for Path Review 04/24/22 04/24/22 04/24/22 Range/Units 12:45 12:37 12:30 WBC (4.0-10.5) x10^3/uL RBC (4.1-5.4) x10^6/uL Hgb (12.0-16.0) g/dL Hct (35-47) % MCV (78-100) fL MCH (26-32) pg MCHC (32-36) g/dL RDW (11.5-14.0) % Plt Count (150-450) x10^3/uL MPV (7.5-11.0) fL Gran % (36.0-66.0) % Immature Gran % (Auto) (0.00-0.4) % Nucleat RBC Rel Count (0.00-0.1) % Eos # (Auto) (0-0.5) x10^3/uL Immature Gran # (Auto) (0.00-0.03) x10^3u/L Absolute Lymphs (auto) (1.0-4.6) x10^3/uL Absolute Monos (auto) (0.0-1.3) x10^3/uL Absolute Nucleated RBC (0.00-0.01) x10^3u/L Lymphocytes % (24.0-44.0) % Monocytes % (0.0-12.0) % Eosinophils % (0.00-5.0) % Basophils % (0.0-0.4) % Absolute Granulocytes (1.4-6.9) x10^3/uL Basophils # (0-0.4) x10^3/uL Sodium (137-145) mmol/L Potassium (3.5-5.1) mmol/L Chloride (98-107) mmol/L Carbon Dioxide (22-30) mmol/L Anion Gap (5-15) MEQ/L BUN (7-17) mg/dL Creatinine (0.52-1.04) mg/dL Estimated GFR ML/MIN Glucose (74-106) mg/dL POC Glucometer 54 L (50 to 500) mg/dL Lactic Acid 2.7 H (0.4-2.0) Calcium (8.4-10.2) mg/dL Total Bilirubin (0.2-1.3) mg/dL AST (14-36) U/L ALT (0-35) U/L Alkaline Phosphatase (38-126) U/L Troponin I < 0.012 (0.000-0.034) ng/mL Serum Total Protein (6.3-8.2) g/dL Albumin (3.5-5.0) g/dL Urine Color (Yellow) Urine Appearance (Clear) Urine pH (4.6-8.0) Ur Specific [place] (1.005-1.030) Urine Protein (Negative) Urine Glucose (UA) (Negative) mg/dL Urine Ketones (Negative) Urine Blood (Negative) Urine Nitrite (Negative) Urine Bilirubin (Negative) Urine Urobilinogen (0.2) mg/dL Ur Leukocyte Esterase (Negative) U Hyaline Cast (Auto) (0-2) /LPF Urine Microscopic RBC (0-5) /HPF Urine Microscopic WBC (0-5) /HPF Ur Epithelial Cells (None Seen) /HPF Urine Bacteria (None Seen) /HPF Urine Culture Reflexed (NO) Urine Opiates Level (NEGATIVE) Ur Methadone (NEGATIVE) Urine Barbiturates (NEGATIVE) Ur Phencyclidine (PCP) (NEGATIVE) Urine Amphetamine (NEGATIVE) U Benzodiazepine Level (NEGATIVE) Urine Cocaine (NEGATIVE) Urine Marijuana (THC) (NEGATIVE) Ethyl Alcohol (0-10) mg/dL Slides for Path Review 04/24/22 04/24/22 04/24/22 Range/Units 12:30 12:30 12:15 WBC 14.1 H (4.0-10.5) x10^3/uL RBC 4.53 (4.1-5.4) x10^6/uL Hgb 13.1 (12.0-16.0) g/dL Hct 41.5 (35-47) % MCV 91.6 (78-100) fL MCH 28.9 (26-32) pg MCHC 31.6 L (32-36) g/dL RDW 14.8 H (11.5-14.0) % Plt Count 182 (150-450) x10^3/uL MPV 11.8 H (7.5-11.0) fL Gran % 27.8 L (36.0-66.0) % Immature Gran % (Auto) 0.2 (0.00-0.4) % Nucleat RBC Rel Count 0.0 (0.00-0.1) % Eos # (Auto) 0.44 (0-0.5) x10^3/uL Immature Gran # (Auto) 0.03 (0.00-0.03) x10^3u/L Absolute Lymphs (auto) 8.40 H (1.0-4.6) x10^3/uL Absolute Monos (auto) 1.23 (0.0-1.3) x10^3/uL Absolute Nucleated RBC 0.00 (0.00-0.01) x10^3u/L Lymphocytes % 59.6 H (24.0-44.0) % Monocytes % 8.7 (0.0-12.0) % Eosinophils % 3.1 (0.00-5.0) % Basophils % 0.6 (0.0-0.4) % Absolute Granulocytes 3.92 (1.4-6.9) x10^3/uL Basophils # 0.08 (0-0.4) x10^3/uL Sodium 141 (137-145) mmol/L Potassium 3.4 L (3.5-5.1) mmol/L Chloride 104 (98-107) mmol/L Carbon Dioxide 27 (22-30) mmol/L Anion Gap 13.9 (5-15) MEQ/L BUN 24 H (7-17) mg/dL Creatinine 1.47 H (0.52-1.04) mg/dL Estimated GFR 36.2 ML/MIN Glucose 48 L* (74-106) mg/dL POC Glucometer 42 L* (50 to 500) mg/dL Lactic Acid (0.4-2.0) Calcium 9.4 (8.4-10.2) mg/dL Total Bilirubin 0.80 (0.2-1.3) mg/dL AST 86 H (14-36) U/L ALT 79 H (0-35) U/L Alkaline Phosphatase 56 (38-126) U/L Troponin I (0.000-0.034) ng/mL Serum Total Protein 8.0 (6.3-8.2) g/dL Albumin 4.8 (3.5-5.0) g/dL Urine Color (Yellow) Urine Appearance (Clear) Urine pH (4.6-8.0) Ur Specific [place] (1.005-1.030) Urine Protein (Negative) Urine Glucose (UA) (Negative) mg/dL Urine Ketones (Negative) Urine Blood (Negative) Urine Nitrite (Negative) Urine Bilirubin (Negative) Urine Urobilinogen (0.2) mg/dL Ur Leukocyte Esterase (Negative) U Hyaline Cast (Auto) (0-2) /LPF Urine Microscopic RBC (0-5) /HPF Urine Microscopic WBC (0-5) /HPF Ur Epithelial Cells (None Seen) /HPF Urine Bacteria (None Seen) /HPF Urine Culture Reflexed (NO) Urine Opiates Level (NEGATIVE) Ur Methadone (NEGATIVE) Urine Barbiturates (NEGATIVE) Ur Phencyclidine (PCP) (NEGATIVE) Urine Amphetamine (NEGATIVE) U Benzodiazepine Level (NEGATIVE) Urine Cocaine (NEGATIVE) Urine Marijuana (THC) (NEGATIVE) Ethyl Alcohol (0-10) mg/dL Slides for Path Review YES - Progress Progress: improved, re-examined Progress Note: 04/24/22 17:05 pt has been observed several hours eating well without any furhter symptoms. Pt advised that we have not determined the cause and that some undetected pathology could still be evovling even of a serious nature without symptoms, including cardiac or some other condition, and including that the WBC is elevated adn lactate, and that the metformin rxn might cause this and needs f/u with her Dr. - she prefers DC to outppt f/u rather than admission and furhter w/u here at this time and this is reasonable in the absence of any clinical signs of infection and normal urine in regard to infection. and lungs clear. SHe has normal mental status and the capacity to make this choice. Counseled pt/family regarding: lab results, diagnosis, need for follow-up, rad results - Departure Departure Disposition: Home Clinical Impression: hypoglycemic episode - resolved unknown , trace hematuria., elevated lactate possible metformin rxn Condition: Good Critical Care Time: No Referrals: JAGJIT TAVAREZ [Primary Care Provider] - Follow up/PCP as directed Instructions: Low Blood Sugar, Adult (DC) Additional Instructions: We did not determine a precise cause for your low sugar, but a reaction with the metformin is suspected and this can also elevate the lactate which was found. Stop the metformin and glipizide and drink plenty of fluids and eat good diet and monitor your glucose levels. See your wednesday to recheck and discuss management of Diabetes. Return meantime if any symptoms or problems with Glucose. SHould not go higher than 200 or lower than 80. eat something if it is low. the white blood count is high which can be infection , but there are no outward signs at this time, so be alert and aware to have any symptoms evaluated. followup your blood pressure. with your Dr. as well. It is best to have someone stay with you or vice versa to recheck during the night for any signs or symptoms the first day.
[2022-04-24] MEDS ORDERED: Dextrose 5%-NS IV Solution 1000 ML 1,000 ML IV ONE (12:56)
[2022-04-24] MEDS ORDERED: D50W 50 ml Abboject IV ONE ×2 (12:58→12:59)
[2022-04-24] MEDS ORDERED: Dextrose 5%-NS IV Solution 1000 ML 1,000 ML IV SCH (13:00)
[2022-04-24 13:01] LABS: ALBUMIN 4.8 g/dL (3.5-5.0); ANION GAP 13.9 MEQ/L (5-15); BILIRUBIN,TOTAL 0.8 mg/dL (0.2-1.3); Calcium 9.4 mg/dL (8.4-10.2); Creatinine 1 1.47 mg/dL (0.52-1.04); EST GLOMERULAR FILTRATION RATE 36.2 ML/MIN; Potassium 3.4 mmol/L (3.5-5.1)
--- NOTE | 2022-04-24 13:04 | XRAY ---
Indication: Acute mental status change. Comparison: December 10, 2021 Portable chest less inflated with stable minimal left base fibrosis/scarring and tiny left mid lung calcified granuloma. No focal infiltrate, consolidation, or large effusion. Heart not enlarged. Bony thorax intact again with osteopenia, degenerative changes, and scoliosis. Impression: Continued nonacute chest with chronic features.
[2022-04-24 15:46] LABS: Appearance Clear (Clear); Bacteria None Seen /HPF (None Seen); Bilirubin Negative (Negative); Blood Trace (Negative); Epithelial Cells None Seen /HPF (None Seen); Glucose, Urine 100 mg/dL (Negative); Ketones Negative (Negative); Leukocyte Esterase Negative (Negative); Nitrite Negative (Negative); Ph 5.5 (4.6-8.0); Protein,Urine Dip 30 (Negative); RBC 0-2 /HPF (0-5); Urobilinogen 0.2 mg/dL (0.2); WBC 0-2 /HPF (0-5)
[2022-04-24 15:57] LABS: Amphetamine,Urine NEGATIVE (NEGATIVE); Barbiturate,Urine NEGATIVE (NEGATIVE); Benzodiazepine,Urine NEGATIVE (NEGATIVE); Cocaine,Urine NEGATIVE (NEGATIVE); Methadone,Urine NEGATIVE (NEGATIVE); Opiate,Urine NEGATIVE (NEGATIVE); PCP,Urine NEGATIVE (NEGATIVE); THC,Urine NEGATIVE (NEGATIVE)
[2022-04-24 16:12] LABS: ADD URINE CULTURE? NO (NO)
[2022-04-24 17:02] LABS: Slide Review 1 YES
[2022-04-24 17:12] VITALS: BP 136/77; PULSE 60
[2022-04-24 17:15] VITALS: O2SAT 93
== END 2022-04-24 17:29 | disposition home or self-care (01) ==
LOC: ED 12:07
DX: E11.649 Type 2 diabetes mellitus with hypoglycemia without coma (principal); R31.29 Other microscopic hematuria; R79.89 Other specified abnormal findings of blood chemistry; R53.1 Weakness; I10 Essential (primary) hypertension; Z79.84 Long term (current) use of oral hypoglycemic drugs; Z79.01 Long term (current) use of anticoagulants; Z79.899 Other long term (current) drug therapy
CPT/HCPCS: 36000; 36415; 71045; 80053; 80307; 81001; 82947; 83605; 84484; 85025; 93005; 93041; 94760; 96374; 99284; G0480

== ENCOUNTER 2022-07-20 08:55 | Inpatient (IN) | payer MEDICARE ==
--- NOTE | 2022-07-20 08:59 | ERPHSYRPT ---
- History of Present Illness Time Seen by Provider: 07/20/22 08:59 Historian: patient Exam Limitations: no limitations Physician History: This is an 81-year-old white female patient who presents with left upper quadrant abdominal pain that began last evening with associated vomiting and diarrhea. Patient has had a cholecystectomy in the past. She denies chest pain. She denies shortness of breath. She does have a history of coronary artery disease and has had a cardiac stent placed in the past. She has a history of hypertension, diabetes, gastroesophageal reflux disease and hypothyroidism. She is on Eliquis. She has not had a fever. She has no known exposure to individuals similar symptoms or exposure to individuals with viral illness. Timing/Duration: yesterday Quality: aching, other ("Just hurts") Abdominal Pain Onset Location: [facility] Severity of Pain-Max: moderate Severity of Pain-Current: moderate Modifying Factors: Improves With: nothing Associated Symptoms: diarrhea, loss of appetite, nausea, vomiting, weakness Previous symptoms: no prior history Allergies/Adverse Reactions: morphine Allergy (Verified 07/20/22 09:13) Home Medications: Furosemide [Lasix] 1 ea PO DAILY 12/10/21 [History] Sertraline HCl [Zoloft] 1 ea DAILY 12/10/21 [History] Apixaban [Eliquis 5 mg Tablet] 1 ea PO BID 01/18/22 [History] Biotin 1 cap PO DAILY 07/20/22 [History] Dapagliflozin Propanediol [Farxiga] 1 tab PO DAILY 07/20/22 [History] Ergocalciferol (Vitamin D2) [Vitamin D2] 2 cap PO WEEKLY 07/20/22 [History] Levothyroxine Sodium 75 Mcg [Synthroid 75 Mcg] 1 tab PO DAILY 07/20/22 [History] Metoprolol Succinate 25 mg Xl* [Toprol-Xl 25MG Tablets] 1 tab PO DAILY 07/20/22 [History] Rosuvastatin Calcium 1 tab PO HS 07/20/22 [History] Hx Tetanus, Diphtheria Vaccination/Date Given: No Hx Influenza Vaccination/Date Given: Yes Hx Pneumococcal Vaccination/Date Given: Yes Travel Risk - International Travel Have you traveled outside of the country in past 3 weeks: No - Coronavirus Screening Are you exhibiting any of the following symptoms?: Yes Symptoms: Vomiting/Diarrhea Close contact with a COVID-19 positive Pt in past 14-21 Days: No - Vaccine Status Have you recieved a Covid-19 vaccination: Yes [place]: Moderna - Vaccination Dates Date of 2cond Vaccination (if applicable): 2020 - Review of Systems Constitutional: Weakness Eyes: No Symptoms Ears, Nose, & Throat: No Symptoms Respiratory: No Symptoms Cardiac: No Symptoms Abdominal/Gastrointestinal: Abdominal Pain (Left upper quadrant), Nausea, Vomiting, Diarrhea, Appetite Changes Genitourinary Symptoms: No Symptoms Musculoskeletal: No Symptoms Skin: No Symptoms Neurological: No Symptoms Psychological: No Symptoms Endocrine: No Symptoms Hematologic/Lymphatic: No Symptoms Immunological/Allergic: No Symptoms All Other Systems: Reviewed and Negative - Past Medical History Pertinent Past Medical History: Yes Neurological History: No Pertinent History ENT History: No Pertinent History Cardiac History: Coronary Artery Disease, Hypertension, Myocardial Infarction ([place]), Other Respiratory History: No Pertinent History Endocrine Medical History: Diabetes Type II Musculoskeletal History: Degenerative Disk Disease, Osteoarthritis - Past Surgical History Past Surgical History: Yes Cardiac: Cardiac Catheterization, Cardiac Stent Gastrointestinal: Cholecystectomy Musculoskeletal: Orthopedic Surgery Female Surgical History: Hysterectomy Other Surgical History: RIGHT KNEE - Social History Smoking Status: Never smoker Exposure to second hand smoke: No Drug Use: none Patient Lives Alone: Yes - Nursing Vital Signs Nursing Vital Signs: Initial Vital Signs Temperature 100.2 F 07/20/22 08:56 Pulse Rate 82 07/20/22 08:56 Respiratory Rate 21 07/20/22 08:56 Blood Pressure 138/79 07/20/22 08:56 O2 Sat by Pulse Oximetry 90 L 07/20/22 08:56 Pain Scale Pain Intensity 10 - Physical Exam General Appearance: no apparent distress, alert, anxiety Eye Exam: PERRL/EOMI, eyes nml inspection Ears, Nose, Throat Exam: normal ENT inspection, moist mucous membranes Neck Exam: normal inspection, non-tender, supple, full range of motion Respiratory Exam: normal breath sounds, lungs clear, airway intact, No chest tenderness, No respiratory distress Cardiovascular Exam: regular rate/rhythm, normal heart sounds, normal peripheral pulses Gastrointestinal/Abdomen Exam: soft, normal bowel sounds, tenderness (Left upper quadrant), guarding (Left upper quadrant) Pelvic Exam: not done Rectal Exam: not done Back Exam: normal inspection, normal range of motion, No CVA tenderness, No vertebral tenderness Extremity Exam: normal inspection, normal range of motion, pelvis stable Neurologic Exam: alert, oriented x 3, cooperative, lead maintenance technician II-XII nml as tested, normal mood/affect, nml cerebellar function, nml station & gait, sensation nml Skin Exam: normal color, warm, dry Lymphatic Exam: No adenopathy SpO2 Interpretation: normal O2 Delivery: Room Air - Course Nursing assessment & vital signs reviewed: Yes EKG Interpreted by Me: RATE (83), Sinus Rhythm, NORMAL AXIS, NORMAL INTERVALS, NORMAL QRS, NORMAL ST-T, Other (No acute ischemic changes on today's twelve-lead EKG.) Ordered Tests: Active Orders 24 hr Category Date Time Status IV Insertion STAT Care 07/20/22 09:22 Active ABDOMEN AND PELVIS W/0 CONTRAS [CT] Stat Exams 07/20/22 09:23 Completed CHEST 1 VIEW (PORTABLE) Stat Exams 07/20/22 12:23 Completed AMYLASE Stat Lab 07/20/22 09:22 Completed BLOOD CULTURE Stat Lab 07/20/22 Ordered CBC W DIFF Stat Lab 07/20/22 10:26 Completed CMP Stat Lab 07/20/22 09:22 Completed CULTURE,URINE Stat Lab 07/20/22 10:25 Received LIPASE Stat Lab 07/20/22 09:22 Completed Manual Differential NC Stat Lab 07/20/22 10:26 Completed TROPONIN Q4H Lab 07/20/22 09:30 Completed TROPONIN Q4H Lab 07/20/22 13:05 Received TROPONIN Q4H Lab 07/20/22 17:30 Ordered UA W/RFX UR CULTURE Stat Lab 07/20/22 10:25 Completed Transfer Order Routine Transfer 07/20/22 Ordered Medication Summary Discontinued Medications Generic Name Dose Route Start Last Admin Trade Name Freq PRN Reason Stop Dose Admin Hydromorphone HCl 0.5 mg 07/20/22 12:49 07/20/22 12:56 Hydromorphone 1 Mg/1ml Inj IV 07/20/22 12:50 0.5 mg STAT ONE Administration Hydromorphone HCl Confirm 07/20/22 12:55 Hydromorphone 1 Mg/1ml Inj Administered 07/20/22 12:56 Dose 1 mg .ROUTE .STK-MED ONE Sodium Chloride 1,000 mls @ 999 mls/hr 07/20/22 09:22 07/20/22 11:10 Sodium Chloride 0.9% 1000 Ml IV 07/20/22 10:22 Infused .Q1H1M STA Infusion Sodium Chloride Confirm 07/20/22 10:01 Sodium Chloride 0.9% 1000 Ml Administered 07/20/22 10:02 Dose 1,000 mls @ ud .ROUTE .STK-MED ONE Sodium Chloride 1,000 mls @ 999 mls/hr 07/20/22 11:27 07/20/22 12:57 Sodium Chloride 0.9% 1000 Ml IV 07/20/22 12:27 Infused .Q1H1M STA Infusion Sodium Chloride Confirm 07/20/22 11:44 Sodium Chloride 0.9% 1000 Ml Administered 07/20/22 11:45 Dose 1,000 mls @ ud .ROUTE .STK-MED ONE Levofloxacin/Dextrose 500 mg in 100 mls @ 100 mls/hr 07/20/22 12:08 07/20/22 13:08 Levofloxacin 500mg/100ml D5w IV 07/20/22 13:07 100 mls/hr STAT STA 100 mls/hr Administration Metronidazole 500 mg in 100 mls @ 200 mls/hr 07/20/22 12:08 07/20/22 12:55 Flagyl 500 Mg Ivpb IV 07/20/22 12:37 Infused STAT STA Infusion Metronidazole Confirm 07/20/22 12:16 Flagyl 500 Mg Ivpb Administered 07/20/22 12:17 Dose 500 mg in 100 mls @ ud IV .STK-MED ONE Levofloxacin/Dextrose Confirm 07/20/22 13:07 Levofloxacin 500mg/100ml D5w Administered 07/20/22 13:08 Dose 500 mg in 100 mls @ ud IV .STK-MED ONE Ondansetron HCl 4 mg 07/20/22 09:22 07/20/22 10:02 Ondansetron Hcl 4 Mg/2 Ml Vial IV 07/20/22 09:23 4 mg STAT ONE Administration Ondansetron HCl Confirm 07/20/22 10:01 Ondansetron Hcl 4 Mg/2 Ml Vial Administered 07/20/22 10:02 Dose 4 mg .ROUTE .STK-MED ONE Pantoprazole Sodium 40 mg 07/20/22 09:22 07/20/22 10:02 Pantoprazole 40 Mg Vial IV 07/20/22 09:23 40 mg STAT ONE Administration Pantoprazole Sodium Confirm 07/20/22 10:01 Pantoprazole 40 Mg Vial Administered 07/20/22 10:02 Dose 40 mg IV .[facility]-MED ONE Lab/Rad Data: Laboratory Result Diagrams 07/20/22 10:26 07/20/22 09:22 Laboratory Results 07/20/22 07/20/22 07/20/22 Range/Units Unknown 10: 10:25 WBC 16.9 H (4.0-10.5) x10^3/uL RBC 4.24 (4.1-5.4) x10^6/uL Hgb 12.3 (12.0-16.0) g/dL Hct 38.0 (35-47) % MCV 89.6 (78-100) fL MCH 29.0 (26-32) pg MCHC 32.4 (32-36) g/dL RDW 14.2 H (11.5-14.0) % Plt Count 117 L (150-450) x10^3/uL MPV 12.1 H (7.5-11.0) fL Sodium (137-145) mmol/L Potassium (3.5-5.1) mmol/L Chloride (98-107) mmol/L Carbon Dioxide (22-30) mmol/L Anion Gap (5-15) MEQ/L BUN (7-17) mg/dL Creatinine (0.52-1.04) mg/dL Estimated GFR ML/MIN Glucose (74-106) mg/dL Calcium (8.4-10.2) mg/dL Total Bilirubin (0.2-1.3) mg/dL AST (14-36) U/L ALT (0-35) U/L Alkaline Phosphatase (38-126) U/L Troponin I (0.000-0.034) ng/mL Serum Total Protein (6.3-8.2) g/dL Albumin (3.5-5.0) g/dL Amylase (30-110) U/L Lipase (23-300) U/L Urine Color Dark Yellow A (Yellow) Urine Appearance Turbid A (Clear) Urine pH 5.0 (4.6-8.0) Ur Specific [place] 1.025 (1.005-1.030) Urine Protein 100 A (Negative) Urine Glucose (UA) >=1000 A (Negative) mg/dL Urine Ketones Trace A (Negative) Urine Blood Large A (Negative) Urine Nitrite Negative (Negative) Urine Bilirubin Negative (Negative) Urine Urobilinogen 0.2 (0.2) mg/dL Ur Leukocyte Esterase Negative (Negative) U Hyaline Cast (Auto) 11-25 A (0-2) /LPF Urine Microscopic RBC 0-2 (0-5) /HPF Urine Microscopic WBC 0-2 (0-5) /HPF Ur Epithelial Cells Rare (None Seen) /HPF Urine Bacteria None Seen (None Seen) /HPF Urine Culture Reflexed YES (NO) Influenza Type A Ag NEGATIVE (NEGATIVE) Influenza Type B Ag NEGATIVE (NEGATIVE) RSV (PCR) NEGATIVE (NEGATIVE) SARS-CoV-2 (PCR) NEGATIVE (NEGATIVE) 07/20/22 07/20/22 Range/Units 09:30 09:22 WBC (4.0-10.5) x10^3/uL RBC (4.1-5.4) x10^6/uL Hgb (12.0-16.0) g/dL Hct (35-47) % MCV (78-100) fL MCH (26-32) pg MCHC (32-36) g/dL RDW (11.5-14.0) % Plt Count (150-450) x10^3/uL MPV (7.5-11.0) fL Sodium 133 L (137-145) mmol/L Potassium 4.9 (3.5-5.1) mmol/L Chloride 96 L (98-107) mmol/L Carbon Dioxide 27 (22-30) mmol/L Anion Gap 15.3 H (5-15) MEQ/L BUN 41 H (7-17) mg/dL Creatinine 1.42 H (0.52-1.04) mg/dL Estimated GFR 37.6 ML/MIN Glucose 154 H (74-106) mg/dL Calcium 8.5 (8.4-10.2) mg/dL Total Bilirubin 1.70 H (0.2-1.3) mg/dL AST 54 H (14-36) U/L ALT 35 (0-35) U/L Alkaline Phosphatase 41 (38-126) U/L Troponin I < 0.012 (0.000-0.034) ng/mL Serum Total Protein 6.6 (6.3-8.2) g/dL Albumin 3.6 (3.5-5.0) g/dL Amylase 47 (30-110) U/L Lipase 24 (23-300) U/L Urine Color (Yellow) Urine Appearance (Clear) Urine pH (4.6-8.0) Ur Specific [place] (1.005-1.030) Urine Protein (Negative) Urine Glucose (UA) (Negative) mg/dL Urine Ketones (Negative) Urine Blood (Negative) Urine Nitrite (Negative) Urine Bilirubin (Negative) Urine Urobilinogen (0.2) mg/dL Ur Leukocyte Esterase (Negative) U Hyaline Cast (Auto) (0-2) /LPF Urine Microscopic RBC (0-5) /HPF Urine Microscopic WBC (0-5) /HPF Ur Epithelial Cells (None Seen) /HPF Urine Bacteria (None Seen) /HPF Urine Culture Reflexed (NO) Influenza Type A Ag (NEGATIVE) Influenza Type B Ag (NEGATIVE) RSV (PCR) (NEGATIVE) SARS-CoV-2 (PCR) (NEGATIVE) - Progress Progress: improved Progress Note: 07/20/22 11:21 CAT scan of the abdomen pelvis without contrast shows mild ileus versus enterocolitis. There is a new small hiatal hernia. No other acute intra- abdominal or intrapelvic findings listed on the impression by the radiologist. Impression was reviewed by me. 07/20/22 13:08 Chest x-ray was interpreted by the radiologist and I reviewed the impression. Chest x-ray shows a left upper lobe consolidating pneumonia versus atelectasis without large effusion. 07/20/22 13:08 I discussed the patient history, history present illness, physical findings and the work-up results with Dr. Rushing. We are awaiting the x-ray of the chest results. We will update Dr. Rushing. This patient's medical issue is 1 of high complexity. The patient will be placed in observation and her clinical impression includes pneumonia and enterocolitis. We will have respiratory see her in the hospital and manage her oxygen. Discussed with : Inocente Counseled pt/family regarding: lab results, diagnosis, need for follow-up, rad results Medical Desision Making - External Record(s) Reviewed Records reviewed as a part of evaluation & management: Inpatient - Discussion of managment Care discussed with:: on-call "doc" Reviewed:: Test results, Need for additional workup Agreed on:: Treatment plan, decision to admit - Diagnostic Testing Diagnostic test were ordered, analyzed, and reviewed by me: Yes Radiological Interpretation: Reviewed by me, Teleradiologist Report - Risk of complications The pt has a high risk of morbidity or mortality based on: Decision regarding hospitilization or escalation of hosp level of care - Departure Departure Disposition: Observation Clinical Impression: Left upper lobe pneumonia, Enterocolitis Condition: Fair Critical Care Time: No Referrals: JAGJIT TAVAREZ [Primary Care Provider] - Follow up/PCP as directed
[2022-07-20] MEDS ORDERED: Sodium Chloride 0.9% 1000 ML 1,000 ML IV STA ×2 (09:22→11:27)
[2022-07-20] MEDS ORDERED: Zofran 4 MG/2 ML VIAL IV ONE (09:22)
[2022-07-20] MEDS ORDERED: PROTONIX 40 MG IV IV ONE ×2 (09:22→10:01)
[2022-07-20] MEDS ORDERED: Sodium Chloride 0.9% 1000 ML 1,000 ML ONE ×2 (10:01→11:44)
[2022-07-20] MEDS ORDERED: Zofran 4 MG/2 ML VIAL ONE (10:01)
[2022-07-20 10:14] LABS: ALBUMIN 3.6 g/dL (3.5-5.0); ANION GAP 15.3 MEQ/L (5-15); BILIRUBIN,TOTAL 1.7 mg/dL (0.2-1.3); Calcium 8.5 mg/dL (8.4-10.2); Creatinine 1 1.42 mg/dL (0.52-1.04); EST GLOMERULAR FILTRATION RATE 37.6 ML/MIN; Potassium 4.9 mmol/L (3.5-5.1); Total Protein 6.6 g/dL (6.3-8.2)
[2022-07-20 10:26] LABS: INFLUENZA A NEGATIVE (NEGATIVE); INFLUENZA B NEGATIVE (NEGATIVE); RESPIRATORY SYNCTIAL VIRUS NEGATIVE (NEGATIVE); SARS-CoV-2 Xpert Express NEGATIVE (NEGATIVE)
[2022-07-20 10:28] LABS: Hemoglobin 12.3 g/dL (12.0-16.0); Mean Cell Volume 89.6 fL (78-100); Mean Corpuscular Hgb Concent. 32.4 g/dL (32-36); Mean Platelet Volume 12.1 fL (7.5-11.0); Platelet Count 117 x10^3/uL (150-450); Red Blood Count 4.24 x10^6/uL (4.1-5.4); Red Cell Distribution Width 14.2 % (11.5-14.0); White Blood Count 16.9 x10^3/uL (4.0-10.5)
[2022-07-20 10:38] LABS: Appearance Turbid (Clear); Bacteria None Seen /HPF (None Seen); Bilirubin Negative (Negative); Blood Large (Negative); Epithelial Cells Rare /HPF (None Seen); Glucose, Urine >=1000 mg/dL (Negative); Ketones Trace (Negative); Leukocyte Esterase Negative (Negative); Nitrite Negative (Negative); Protein,Urine Dip 100 (Negative); RBC 0-2 /HPF (0-5); Specific Gravity 1.025 (1.005-1.030); Urobilinogen 0.2 mg/dL (0.2); WBC 0-2 /HPF (0-5)
[2022-07-20 10:40] LABS: ADD URINE CULTURE? YES (NO)
--- NOTE | 2022-07-20 11:01 | XRAY ---
Indication: Left upper quadrant pain. Multiple contiguous axial images obtained through the abdomen and pelvis without contrast. Comparison: January 18, 2022 Lung bases again demonstrates bibasilar subsegmental atelectasis/scarring. Heart not enlarged. New small hiatal hernia. Noncontrasted stomach and bowel loops are nonobstructed. A few small bowel loops and ascending colon are mildly fluid distended with fluid leveling, ileus versus enterocolitis. Normal appendix. Again incidental sigmoid diverticulosis without diverticulitis, large left renal cyst, cholecystectomy, and hysterectomy. No free fluid/air. Remaining liver, pancreas, spleen, adrenal glands, kidneys, ureters, and bladder are unremarkable for noncontrast exam. There remains moderate scattered aortoiliac calcifications without AAA. Osseous structures intact again with osteopenia, moderate dextroscoliosis, moderate/advanced multilevel degenerative spondylosis, and grade 1-L2 anterolisthesis of L5 on S1. Impression: 1. Mild fluid distended small bowel loops and ascending colon, ileus versus enterocolitis. 2. New small hiatal hernia. 3. Again chronic findings including sigmoid diverticulosis, left renal cysts, too ascribe disease, chronic bony findings.
[2022-07-20] MEDS ORDERED: FLAGYL 500 MG IVPB 500 MG/100 ML BAG IV STA (12:08)
[2022-07-20] MEDS ORDERED: Levofloxacin 500MG/100ML D5W 500 MG/100 ML BAG IV STA (12:08)
[2022-07-20] MEDS ORDERED: FLAGYL 500 MG IVPB 500 MG/100 ML BAG IV ONE (12:16)
[2022-07-20] MEDS ORDERED: Hydromorphone 1 mg/ml Injection IV ONE ×2 (12:49→18:59)
[2022-07-20] MEDS ORDERED: Hydromorphone 1 mg/ml Injection ONE (12:55)
--- NOTE | 2022-07-20 13:05 | XRAY ---
Indication: Left chest pain. Comparison: April 24, 2022 Portable chest demonstrates new large left upper lobe consolidation, consolidating pneumonia versus atelectasis without large effusion. Remaining heart and right lung normal. Bony thorax intact again with osteopenia and degenerative changes.
[2022-07-20] MEDS ORDERED: Levofloxacin 500MG/100ML D5W 500 MG/100 ML BAG IV ONE (13:07)
[2022-07-20] MEDS ORDERED: TYLENOL 325 MG PO PRN (14:11)
[2022-07-20] MEDS ORDERED: Zofran 4 MG/2 ML VIAL IV PRN (14:11)
[2022-07-20] MEDS ORDERED: Sodium Chloride 0.9% 1000 ML 1,000 ML IV SCH (14:11)
[2022-07-20] MEDS ORDERED: Hydromorphone 1 mg/ml Injection IV PRN (14:11)
[2022-07-20] MEDS ORDERED: SUBLIMAZE 100 MCG/2 ML IV PRN ×2 (15:19→21:10)
[2022-07-20] MEDS ORDERED: MEDICATION INTERVENTION MC SCH ×2 (17:30)
[2022-07-20] MEDS: Toprol-Xl 25MG Tablets PO SCH (17:58)
[2022-07-20] MEDS: ZOLOFT 50 MG TABLET PO SCH (17:58)
[2022-07-20] MEDS: SYNTHROID 75 MCG PO SCH (17:58)
[2022-07-20] MEDS: LASIX 20 MG PO SCH (17:59)
[2022-07-20] MEDS: FLAGYL 500 MG IVPB 500 MG/100 ML BAG IV SCH ×2 (18:16→23:31)
[2022-07-20] MEDS: D5W/0.45NS W/ 20mEq KCl 1000 ML 1,000 ML IV SCH (18:57)
--- NOTE | 2022-07-20 21:23 | PCM.HP ---
History of Present Illness - Chief Complaint Chief Complaint: left upper quadrant abdominal pain for 1-2 days History of Present Illness: is a 81 year old female.who presents with left upper quadrant abdominal pain that began last evening with associated vomiting and diarrhea. Patient has had a cholecystectomy in the past. She denies chest pain. She denies shortness of breath. She does have a history of coronary artery disease and has had a cardiac stent placed in the past. She has a history of hypertension, diabetes, gastroesophageal reflux disease and hypothyroidism. She is on Eliquis. She has not had a fever. She has no known exposure to individuals similar symptoms or exposure to individuals with viral illness. Timing/Duration: yesterday Quality: aching, other ("Just hurts") Abdominal Pain Onset Location: [facility] Severity of Pain-Max: moderate Severity of Pain-Current: moderate Modifying Factors: Improves With: nothing Associated Symptoms: diarrhea, loss of appetite, nausea, vomiting, weakness Previous symptoms: no prior history - Review of Systems Constitutional: Fever Eyes: No Symptoms Ears, Nose, & Throat: No Symptoms Respiratory: Cough, Short Of Breath Cardiac: No Chest Pain, No Edema, No Syncope Abdominal/Gastrointestinal: Abdominal Pain, Nausea, Vomiting, Diarrhea Genitourinary Symptoms: No Dysuria Musculoskeletal: No Back Pain, No Neck Pain Skin: No Rash Neurological: No Dizziness, No Focal Weakness, No Sensory Changes Psychological: No Symptoms Endocrine: No Symptoms Hematologic/Lymphatic: No Symptoms Immunological/Allergic: No Symptoms Medications & Allergies Home Medications: Home Medication List Furosemide [Lasix] 1 ea PO DAILY 12/10/21 [History Confirmed 07/20/22] Sertraline HCl [Zoloft] 1 ea DAILY 12/10/21 [History Confirmed 07/20/22] Apixaban [Eliquis 5 mg Tablet] 1 ea PO BID 01/18/22 [History Confirmed 07/20/22] Biotin 1 cap PO DAILY 07/20/22 [History Confirmed 07/20/22] Dapagliflozin Propanediol [Farxiga] 1 tab PO DAILY 07/20/22 [History Confirmed 07/20/22] Ergocalciferol (Vitamin D2) [Vitamin D2] 2 cap PO WEEKLY 07/20/22 [History Confirmed 07/20/22] Levothyroxine Sodium 75 Mcg [Synthroid 75 Mcg] 1 tab PO DAILY 07/20/22 [History Confirmed 07/20/22] Metoprolol Succinate 25 mg Xl* [Toprol-Xl 25MG Tablets] 1 tab PO DAILY 07/20/22 [History Confirmed 07/20/22] Rosuvastatin Calcium 1 tab PO HS 07/20/22 [History Confirmed 07/20/22] Allergies/Adverse Reactions: Allergies Allergy/AdvReac Type Severity Reaction Status Date / Time morphine Allergy Verified 07/20/22 09:13 - Past Medical History Past Medical History: Yes Neurological History: No Pertinent History ENT History: No Pertinent History Cardiac History: Coronary Artery Disease, Hypertension, Myocardial Infarction (MT), Other Respiratory History: No Pertinent History Endocrine Medical History: Diabetes Type II Musculoskelatal History: Degenerative Disk Disease, Osteoarthritis GI Medical History: Gallbladder Disease Comment: patient intermittent confusion, history pulled from medical record - Female History Are you now?: No - Past Surgical History Past Surgical History: Yes Neuro Surgical History: No Pertinent History Cardiac History: Cardiac Catheterization, Cardiac Stent GI Surgical History: Cholecystectomy Musculskeletal Surgical Hx: Orthopedic Surgery Female Surgical History: Hysterectomy Other Surgical History: RIGHT KNEE - Social History Smoking Status: Unknown if ever smoked Exposure to second hand smoke: No Alcohol: None Drug Use: none - Physical Exam Vital Signs: Vital Signs - 24 hr Temp Pulse Resp BP Pulse Ox 07/20/22 20:34 93 L 07/20/22 19:19 98.6 F 90 28 H 128/58 92 L 07/20/22 16:02 98.1 F 95 H 20 115/84 90 L 07/20/22 15:32 98.1 F 95 H 20 115/84 90 L 07/20/22 14:26 98.8 F 92 H 20 122/57 89 L 07/20/22 14:11 90 20 90 L 07/20/22 13:57 94 H 21 90/55 91 L 07/20/22 12:35 100.5 F 88 21 133/79 88 L 07/20/22 11:37 83 20 140/55 95 07/20/22 08:56 100.2 F 82 21 138/79 90 L General Appearance: no apparent distress, alert Neurologic Exam: alert, oriented x 3, cooperative, normal mood/affect, nml cerebellar function, nml station & gait, sensation nml, No motor deficits Eye Exam: PERRL/EOMI, eyes nml inspection Ears, Nose, Throat Exam: normal ENT inspection, TMs normal, pharynx normal, moist mucous membranes Neck Exam: normal inspection, non-tender, supple, full range of motion Respiratory Exam: diminished breath sounds, crackles/rales, rhonchi, No respiratory distress Cardiovascular Exam: regular rate/rhythm, normal heart sounds, normal peripheral pulses Gastrointestinal/Abdomen Exam: tenderness (Left upper quadrant), guarding, No mass Back Exam: normal inspection, normal range of motion, No CVA tenderness, No vertebral tenderness Extremity Exam: normal inspection, normal range of motion, pelvis stable Skin Exam: normal color, warm, dry, No rash Lymphatic Exam: No adenopathy Results - Labs Lab/Micro Results: Lab Results-Last 24 Hours 07/20/22 07/20/22 07/20/22 Range/Units 09:22 09:30 10:25 WBC (4.0-10.5) x10^3/uL RBC (4.1-5.4) x10^6/uL Hgb (12.0-16.0) g/dL Hct (35-47) % MCV (78-100) fL MCH (26-32) pg MCHC (32-36) g/dL RDW (11.5-14.0) % Plt Count (150-450) x10^3/uL MPV (7.5-11.0) fL D-Dimer (0.0-0.50) mg/L Sodium 133 L (137-145) mmol/L Potassium 4.9 (3.5-5.1) mmol/L Chloride 96 L (98-107) mmol/L Carbon Dioxide 27 (22-30) mmol/L Anion Gap 15.3 H (5-15) MEQ/L BUN 41 H (7-17) mg/dL Creatinine 1.42 H (0.52-1.04) mg/dL Estimated GFR 37.6 ML/MIN Glucose 154 H (74-106) mg/dL POC Glucometer (74 to 106) mg/dL Calcium 8.5 (8.4-10.2) mg/dL Total Bilirubin 1.70 H (0.2-1.3) mg/dL AST 54 H (14-36) U/L ALT 35 (0-35) U/L Alkaline Phosphatase 41 (38-126) U/L Troponin I < 0.012 (0.000-0.034) ng/mL Serum Total Protein 6.6 (6.3-8.2) g/dL Albumin 3.6 (3.5-5.0) g/dL Amylase 47 (30-110) U/L Lipase 24 (23-300) U/L Urine Color Dark Yellow A (Yellow) Urine Appearance Turbid A (Clear) Urine pH 5.0 (4.6-8.0) Ur Specific Milligan 1.025 (1.005-1.030) Urine Protein 100 A (Negative) Urine Glucose (UA) >=1000 A (Negative) mg/dL Urine Ketones Trace A (Negative) Urine Blood Large A (Negative) Urine Nitrite Negative (Negative) Urine Bilirubin Negative (Negative) Urine Urobilinogen 0.2 (0.2) mg/dL Ur Leukocyte Esterase Negative (Negative) U Hyaline Cast (Auto) 11-25 A (0-2) /LPF Urine Microscopic RBC 0-2 (0-5) /HPF Urine Microscopic WBC 0-2 (0-5) /HPF Ur Epithelial Cells Rare (None Seen) /HPF Urine Bacteria None Seen (None Seen) /HPF Urine Culture Reflexed YES (NO) Influenza Type A Ag (NEGATIVE) Influenza Type B Ag (NEGATIVE) RSV (PCR) (NEGATIVE) SARS-CoV-2 (PCR) (NEGATIVE) 07/20/22 07/20/22 07/20/22 Range/Units 10:26 13:05 15:48 WBC 16.9 H (4.0-10.5) x10^3/uL RBC 4.24 (4.1-5.4) x10^6/uL Hgb 12.3 (12.0-16.0) g/dL Hct 38.0 (35-47) % MCV 89.6 (78-100) fL MCH 29.0 (26-32) pg MCHC 32.4 (32-36) g/dL RDW 14.2 H (11.5-14.0) % Plt Count 117 L (150-450) x10^3/uL MPV 12.1 H (7.5-11.0) fL D-Dimer 1.65 H* (0.0-0.50) mg/L Sodium (137-145) mmol/L Potassium (3.5-5.1) mmol/L Chloride (98-107) mmol/L Carbon Dioxide (22-30) mmol/L Anion Gap (5-15) MEQ/L BUN (7-17) mg/dL Creatinine (0.52-1.04) mg/dL Estimated GFR ML/MIN Glucose (74-106) mg/dL POC Glucometer (74 to 106) mg/dL Calcium (8.4-10.2) mg/dL Total Bilirubin (0.2-1.3) mg/dL AST (14-36) U/L ALT (0-35) U/L Alkaline Phosphatase (38-126) U/L Troponin I < 0.012 (0.000-0.034) ng/mL Serum Total Protein (6.3-8.2) g/dL Albumin (3.5-5.0) g/dL Amylase (30-110) U/L Lipase (23-300) U/L Urine Color (Yellow) Urine Appearance (Clear) Urine pH (4.6-8.0) Ur Specific Milligan (1.005-1.030) Urine Protein (Negative) Urine Glucose (UA) (Negative) mg/dL Urine Ketones (Negative) Urine Blood (Negative) Urine Nitrite (Negative) Urine Bilirubin (Negative) Urine Urobilinogen (0.2) mg/dL Ur Leukocyte Esterase (Negative) U Hyaline Cast (Auto) (0-2) /LPF Urine Microscopic RBC (0-5) /HPF Urine Microscopic WBC (0-5) /HPF Ur Epithelial Cells (None Seen) /HPF Urine Bacteria (None Seen) /HPF Urine Culture Reflexed (NO) Influenza Type A Ag (NEGATIVE) Influenza Type B Ag (NEGATIVE) RSV (PCR) (NEGATIVE) SARS-CoV-2 (PCR) (NEGATIVE) 07/20/22 07/20/22 Range/Units 20:43 Unknown WBC (4.0-10.5) x10^3/uL RBC (4.1-5.4) x10^6/uL Hgb (12.0-16.0) g/dL Hct (35-47) % MCV (78-100) fL MCH (26-32) pg MCHC (32-36) g/dL RDW (11.5-14.0) % Plt Count (150-450) x10^3/uL MPV (7.5-11.0) fL D-Dimer (0.0-0.50) mg/L Sodium (137-145) mmol/L Potassium (3.5-5.1) mmol/L Chloride (98-107) mmol/L Carbon Dioxide (22-30) mmol/L Anion Gap (5-15) MEQ/L BUN (7-17) mg/dL Creatinine (0.52-1.04) mg/dL Estimated GFR ML/MIN Glucose (74-106) mg/dL POC Glucometer 176 H (74 to 106) mg/dL Calcium (8.4-10.2) mg/dL Total Bilirubin (0.2-1.3) mg/dL AST (14-36) U/L ALT (0-35) U/L Alkaline Phosphatase (38-126) U/L Troponin I (0.000-0.034) ng/mL Serum Total Protein (6.3-8.2) g/dL Albumin (3.5-5.0) g/dL Amylase (30-110) U/L Lipase (23-300) U/L Urine Color (Yellow) Urine Appearance (Clear) Urine pH (4.6-8.0) Ur Specific Milligan (1.005-1.030) Urine Protein (Negative) Urine Glucose (UA) (Negative) mg/dL Urine Ketones (Negative) Urine Blood (Negative) Urine Nitrite (Negative) Urine Bilirubin (Negative) Urine Urobilinogen (0.2) mg/dL Ur Leukocyte Esterase (Negative) U Hyaline Cast (Auto) (0-2) /LPF Urine Microscopic RBC (0-5) /HPF Urine Microscopic WBC (0-5) /HPF Ur Epithelial Cells (None Seen) /HPF Urine Bacteria (None Seen) /HPF Urine Culture Reflexed (NO) Influenza Type A Ag NEGATIVE (NEGATIVE) Influenza Type B Ag NEGATIVE (NEGATIVE) RSV (PCR) NEGATIVE (NEGATIVE) SARS-CoV-2 (PCR) NEGATIVE (NEGATIVE) - Radiology Impressions Radiology Exams & Impressions: Radiology Procedures Category Date Time Status ABDOMEN AND PELVIS W/0 CONTRAS [CT] Stat Exams 07/20/22 09:23 Completed CHEST 1 VIEW (PORTABLE) Stat Exams 07/20/22 12:23 Completed PULMONARY PERF VENTILATION [NUCMED] Urgent Exams 07/23/22 10:[address]/ABDOMEN AND PELVIS W/0 CONTRAS Indication: Left upper quadrant pain. Multiple contiguous axial images obtained through the abdomen and pelvis without contrast. Comparison: January 18, 2022 Lung bases again demonstrates bibasilar subsegmental atelectasis/scarring. Heart not enlarged. New small hiatal hernia. Noncontrasted stomach and bowel loops are nonobstructed. A few small bowel loops and ascending colon are mildly fluid distended with fluid leveling, ileus versus enterocolitis. Normal appendix. Again incidental sigmoid diverticulosis without diverticulitis, large left renal cyst, cholecystectomy, and hysterectomy. No free fluid/air. Remaining liver, pancreas, spleen, adrenal glands, kidneys, ureters, and bladder are unremarkable for noncontrast exam. There remains moderate scattered aortoiliac calcifications without AAA. Osseous structures intact again with osteopenia, moderate dextroscoliosis, moderate/advanced multilevel degenerative spondylosis, and grade 1-L2 anterolisthesis of L5 on S1. Impression: 1. Mild fluid distended small bowel loops and ascending colon, ileus versus enterocolitis. 2. New small hiatal hernia. 3. Again chronic findings including sigmoid diverticulosis, left renal cysts, too ascribe disease, chronic bony findings. - Other Procedures and Tests Respiratory Therapy 07/20/22 14:11 Oxygen Nasal Cannula 2 lpm Assessment/Plan (1) Enterocolitis Current Visit: Yes Status: Acute Assessment & Plan: Chief Complaint Diagnosis left upper lobe pneumonia,. entercolitis Allergies Allergy/AdvReac Type Severity Reaction Status Date / Time morphine Allergy Verified 07/20/22 09:13 Vital Signs (Last 24 hours) Temp Pulse Resp BP Pulse Ox 07/20/22 20:34 93 L 07/20/22 19:19 98.6 F 90 28 H 128/58 92 L 07/20/22 16:02 98.1 F 95 H 20 115/84 90 L 07/20/22 15:32 98.1 F 95 H 20 115/84 90 L 07/20/22 14:26 98.8 F 92 H 20 122/57 89 L 07/20/22 14:11 90 20 90 L 07/20/22 13:57 94 H 21 90/55 91 L 07/20/22 12:35 100.5 F 88 21 133/79 88 L 07/20/22 11:37 83 20 140/55 95 07/20/22 08:56 100.2 F 82 21 138/79 90 L Home Medications Medication Instructions Recorded Confirmed Last Taken Type Biotin 1 cap PO DAILY 07/20/22 07/20/22 Unknown History Dapagliflozin Propanediol [Farxiga] 1 tab PO DAILY 07/20/22 07/20/22 Unknown History Ergocalciferol (Vitamin D2) 2 cap PO WEEKLY 07/20/22 07/20/22 Unknown History [Vitamin D2] Levothyroxine Sodium 75 Mcg 1 tab PO DAILY 07/20/22 07/20/22 Unknown History [Synthroid 75 Mcg] Metoprolol Succinate 25 mg Xl* 1 tab PO DAILY 07/20/22 07/20/22 Unknown History [Toprol-Xl 25MG Tablets] Rosuvastatin Calcium 1 tab PO HS 07/20/22 07/20/22 Unknown History Current Medications Generic Name Dose Route Start Last Admin Trade Name Freq PRN Reason Stop Dose Admin Acetaminophen 650 mg 07/20/22 14:11 Acetaminophen 325 Mg Tablet PO 08/19/22 14:10 Q4H PRN PRN PAIN, FEVER, HEADACHE Apixaban 5 mg 07/20/22 22:00 Apixaban 2.5 Mg Tablet PO 08/19/22 21:59 BID LINDSAY Ergocalciferol 100,000 unit 07/25/22 10:00 Ergocalciferol (Vitamin D2) 50,000 Unit Capsule PO 08/24/22 09:59 WEEKLY LINDSAY Fentanyl Citrate 50 mcg 07/20/22 21:10 Fentanyl Citrate 100 Mcg/2 Ml* Vial IV 07/25/22 21:08 Q4H PRN PRN PAIN Furosemide 20 mg 07/20/22 18:00 07/20/22 17:59 Furosemide 20 Mg Tablet PO 08/19/22 17:59 20 mg DAILY LINDSAY Administration Hydromorphone HCl 1 mg 07/20/22 18:59 07/20/22 19:34 Hydromorphone 1 Mg/1ml Inj IV 07/20/22 19:00 1 mg STAT ONE Administration Hydromorphone HCl 0.5 mg 07/20/22 19:00 Hydromorphone 1 Mg/1ml Inj IV 07/25/22 18:59 Q2H PRN PRN PAIN Metronidazole 500 mg in 100 mls @ 200 mls/hr 07/20/22 18:00 07/20/22 18:16 Flagyl 500 Mg Ivpb IV 08/19/22 17:59 200 mls/hr Q6HT LINDSAY Administration Levofloxacin/Dextrose 750 mg in 150 mls @ 100 mls/hr 07/21/22 22:00 Levofloxacin 750mg/150ml D5w IV 08/20/22 21:59 Q48H LINDSAY Potassium Chloride/Dextrose/Sod Cl 1,000 mls @ 100 mls/hr 07/20/22 19:00 07/20/22 19:53 D5w/0.45ns W/ 20meq Kcl 1000 Ml IV 08/19/22 18:59 60 mls/hr .Q10H LINDSAY Infusion Levothyroxine Sodium 75 mcg 07/20/22 18:00 07/20/22 17:58 Levothyroxine Sodium 75 Mcg Tablet PO 08/19/22 17:59 75 mcg DAILY LINDSAY Administration Metoprolol Succinate 25 mg 07/20/22 18:00 07/20/22 17:58 Metoprolol Succinate 25 Mg Xl Tab PO 08/19/22 17:59 25 mg DAILY LINDSAY Administration Miscellaneous Information 1 each 07/20/22 17:30 Medication Intervention 1 Each Each 08/19/22 17:29 .RN TO CHECK LINDSAY Miscellaneous Information 1 each 07/20/22 17:30 Medication Intervention 1 Each Each 08/19/22 17:29 .RN TO CHECK LINDSAY Ondansetron HCl 4 mg 07/20/22 14:11 Ondansetron Hcl 4 Mg/2 Ml Vial IV 08/19/22 14:10 Q6H PRN PRN NAUSEA/VOMITING Sertraline HCl 100 mg 07/20/22 18:00 07/20/22 17:58 Sertraline Hcl 50 Mg Tab PO 08/19/22 17:59 100 mg DAILY LINDSAY Administration Simvastatin 40 mg 07/20/22 22:00 Simvastatin 20 Mg Tablet PO 08/19/22 21:59 HS LINDSAY Discontinued Medications Generic Name Dose Route Start Last Admin Trade Name Freq PRN Reason Stop Dose Admin Fentanyl Citrate 50 mcg 07/20/22 15:19 07/20/22 15:33 Fentanyl Citrate 100 Mcg/2 Ml* Vial IV 07/25/22 15:18 50 mcg Q6H PRN PRN Administration PAIN Hydromorphone HCl 0.5 mg 07/20/22 12:49 07/20/22 12:56 Hydromorphone 1 Mg/1ml Inj IV 07/20/22 12:50 0.5 mg STAT ONE Administration Hydromorphone HCl Confirm 07/20/22 12:55 Hydromorphone 1 Mg/1ml Inj Administered 07/20/22 12:56 Dose 1 mg .ROUTE .STK-MED ONE Hydromorphone HCl 0.5 mg 07/20/22 14:11 Hydromorphone 1 Mg/1ml Inj IV 07/25/22 14:10 Q6H PRN PRN PAIN Sodium Chloride 1,000 mls @ 999 mls/hr 07/20/22 09:22 07/20/22 11:10 Sodium Chloride 0.9% 1000 Ml IV 07/20/22 10:22 Infused .Q1H1M STA Infusion Sodium Chloride Confirm 07/20/22 10:01 Sodium Chloride 0.9% 1000 Ml Administered 07/20/22 10:02 Dose 1,000 mls @ ud .ROUTE .STK-MED ONE Sodium Chloride 1,000 mls @ 999 mls/hr 07/20/22 11:27 07/20/22 12:57 Sodium Chloride 0.9% 1000 Ml IV 07/20/22 12:27 Infused .Q1H1M STA Infusion Sodium Chloride Confirm 07/20/22 11:44 Sodium Chloride 0.9% 1000 Ml Administered 07/20/22 11:45 Dose 1,000 mls @ ud .ROUTE .STK-MED ONE Levofloxacin/Dextrose 500 mg in 100 mls @ 100 mls/hr 07/20/22 12:08 07/20/22 13:08 Levofloxacin 500mg/100ml D5w IV 07/20/22 13:07 100 mls/hr STAT STA 100 mls/hr Administration Metronidazole 500 mg in 100 mls @ 200 mls/hr 07/20/22 12:08 07/20/22 12:55 Flagyl 500 Mg Ivpb IV 07/20/22 12:37 Infused STAT STA Infusion Metronidazole Confirm 07/20/22 12:16 Flagyl 500 Mg Ivpb Administered 07/20/22 12:17 Dose 500 mg in 100 mls @ ud IV .STK-MED ONE Levofloxacin/Dextrose Confirm 07/20/22 13:07 Levofloxacin 500mg/100ml D5w Administered 07/20/22 13:08 Dose 500 mg in 100 mls @ ud IV .STK-MED ONE Sodium Chloride 1,000 mls @ 50 mls/hr 07/20/22 14:11 07/20/22 17:59 Sodium Chloride 0.9% 1000 Ml IV 08/19/22 14:10 50 mls/hr .Q20H LINDSAY Administration Levofloxacin/Dextrose 500 mg in 100 mls @ 100 mls/hr 07/21/22 10:00 Levofloxacin 500mg/100ml D5w IV 08/20/22 09:59 Q24H10 LINDSAY Ondansetron HCl 4 mg 07/20/22 09:22 07/20/22 10:02 Ondansetron Hcl 4 Mg/2 Ml Vial IV 07/20/22 09:23 4 mg STAT ONE Administration Ondansetron HCl Confirm 07/20/22 10:01 Ondansetron Hcl 4 Mg/2 Ml Vial Administered 07/20/22 10:02 Dose 4 mg .ROUTE .STK-MED ONE Pantoprazole Sodium 40 mg 07/20/22 09:22 07/20/22 10:02 Pantoprazole 40 Mg Vial IV 07/20/22 09:23 40 mg STAT ONE Administration Pantoprazole Sodium Confirm 07/20/22 10:01 Pantoprazole 40 Mg Vial Administered 07/20/22 10:02 Dose 40 mg IV .STK-MED ONE Intake & Output (Last 24 hours) 07/18/22 07/19/22 07/20/22 07/21/22 11:59 11:59 11:59 11:59 Intake Total 260 Balance 260 Weight 89.9 kg 89.9 kg Microbiology Results (Last 24 hours) 07/20/22 09:38 Blood Blood Culture - Pending 07/20/22 10:15 Blood Blood Culture - Pending 07/20/22 10:25 Urine, Void Urine Culture - Pending Laboratory Results (Last 24 hours) 07/20/22 07/20/22 07/20/22 Unknown 20:43 15:48 WBC RBC Hgb Hct MCV MCH MCHC RDW Plt Count MPV D-Dimer 1.65 H* Sodium Potassium Chloride Carbon Dioxide Anion Gap BUN Creatinine Estimated GFR Glucose POC Glucometer 176 H Calcium Total Bilirubin AST ALT Alkaline Phosphatase Troponin I Serum Total Protein Albumin Amylase Lipase Urine Color Urine Appearance Urine pH Ur Specific Milligan Urine Protein Urine Glucose (UA) Urine Ketones Urine Blood Urine Nitrite Urine Bilirubin Urine Urobilinogen Ur Leukocyte Esterase U Hyaline Cast (Auto) Urine Microscopic RBC Urine Microscopic WBC Ur Epithelial Cells Urine Bacteria Urine Culture Reflexed Influenza Type A Ag NEGATIVE Influenza Type B Ag NEGATIVE RSV (PCR) NEGATIVE SARS-CoV-2 (PCR) NEGATIVE 07/20/22 07/20/22 07/20/22 13:05 10:26 10:25 WBC 16.9 H RBC 4.24 Hgb 12.3 Hct 38.0 MCV 89.6 MCH 29.0 MCHC 32.4 RDW 14.2 H Plt Count 117 L MPV 12.1 H D-Dimer Sodium Potassium Chloride Carbon Dioxide Anion Gap BUN Creatinine Estimated GFR Glucose POC Glucometer Calcium Total Bilirubin AST ALT Alkaline Phosphatase Troponin I < 0.012 Serum Total Protein Albumin Amylase Lipase Urine Color Dark Yellow A Urine Appearance Turbid A Urine pH 5.0 Ur Specific Milligan 1.025 Urine Protein 100 A Urine Glucose (UA) >=1000 A Urine Ketones Trace A Urine Blood Large A Urine Nitrite Negative Urine Bilirubin Negative Urine Urobilinogen 0.2 Ur Leukocyte Esterase Negative U Hyaline Cast (Auto) 11-25 A Urine Microscopic RBC 0-2 Urine Microscopic WBC 0-2 Ur Epithelial Cells Rare Urine Bacteria None Seen Urine Culture Reflexed YES Influenza Type A Ag Influenza Type B Ag RSV (PCR) SARS-CoV-2 (PCR) 07/20/22 07/20/22 09:30 09:22 WBC RBC Hgb Hct MCV MCH MCHC RDW Plt Count MPV D-Dimer Sodium 133 L Potassium 4.9 Chloride 96 L Carbon Dioxide 27 Anion Gap 15.3 H BUN 41 H Creatinine 1.42 H Estimated GFR 37.6 Glucose 154 H POC Glucometer Calcium 8.5 Total Bilirubin 1.70 H AST 54 H ALT 35 Alkaline Phosphatase 41 Troponin I < 0.012 Serum Total Protein 6.6 Albumin 3.6 Amylase 47 Lipase 24 Urine Color Urine Appearance Urine pH Ur Specific Milligan Urine Protein Urine Glucose (UA) Urine Ketones Urine Blood Urine Nitrite Urine Bilirubin Urine Urobilinogen Ur Leukocyte Esterase U Hyaline Cast (Auto) Urine Microscopic RBC Urine Microscopic WBC Ur Epithelial Cells Urine Bacteria Urine Culture Reflexed Influenza Type A Ag Influenza Type B Ag RSV (PCR) SARS-CoV-2 (PCR) Orders (Last 24 hours) Category Date Time Status Bedrest TOLERATED Activity 07/20/22 14:11 Active Code Status Order ROUTINE Care 07/20/22 14:11 Active Elevate HOB TOLERATED Care 07/20/22 14:11 Active IV Insertion STAT Care 07/20/22 09:22 Completed POCT Glucose Check ACHS Care 07/20/22 18:[address] in Observation ROUTINE Care 07/20/22 14:11 Active Telemetry q6h Care 07/20/22 19:00 Active Consult Surgery ROUTINE Cons 07/20/22 18:33 Active Heart-Healthy Diet Diet 07/20/22 Dinner Active ABDOMEN AND PELVIS W/0 CONTRAS [CT] Stat Exams 07/20/22 09:23 Completed CHEST 1 VIEW (PORTABLE) Stat Exams 07/20/22 12:23 Completed PULMONARY PERF VENTILATION [NUCMED] Urgent Exams 07/23/22 10:00 Ordered AMYLASE Stat Lab 07/20/22 09:22 Completed BLOOD CULTURE Stat Lab 07/20/22 09:38 Received CBC W DIFF AM.LAB Lab 07/21/22 04:00 Ordered CBC W DIFF Stat Lab 07/20/22 10:26 Completed CMP AM.LAB Lab 07/21/22 04:00 Ordered CMP Stat Lab 07/20/22 09:22 Completed COVID/FLU/RSV Panel Stat Lab 07/20/22 Completed CULTURE,URINE Stat Lab 07/20/22 10:25 Received D-DIMER QUANTITATIVE Routine Lab 07/20/22 15:48 Completed LIPASE Stat Lab 07/20/22 09:22 Completed Manual Differential NC Stat Lab 07/20/22 10:26 Completed NT PRO BNPII AM.LAB Lab 07/21/22 04:00 Ordered POCT GLUCOSE Stat Lab 07/20/22 20:43 Completed TROPONIN Q4H Lab 07/20/22 09:30 Completed TROPONIN Q4H Lab 07/20/22 13:05 Completed UA W/RFX UR CULTURE Stat Lab 07/20/22 10:25 Completed Acetaminophen 325 mg [Tylenol 325 mg] Med 07/20/22 14:11 Active 650 mg PO Q4H PRN PRN Apixaban [Eliquis 2.5 mg Tablet] Med 07/20/22 22:00 Active 5 mg PO BID D5w-0.45NACL W/ 20Meq KCl [D5W/0.45NS W/ 20mEq KCl 1000 [facility] 07/20/22 19:00 Ordered ML] 1,000 ml IV 100 mls/hr Ergocalciferol (Vitamin D2) [Vitamin D2] Med 07/25/22 10:00 Active 100,000 unit PO WEEKLY Fentanyl Citrate 100 Mcg/2 ml* [Sublimaze 100 Mcg/2 ml* [facility] 07/20/22 21:10 Ordered ] 50 mcg IV Q4H PRN PRN Fentanyl Citrate 100 Mcg/2 ml* [Sublimaze 100 Mcg/2 ml* [facility] 07/20/22 15:19 Discontinued ] 50 mcg IV Q6H PRN PRN Furosemide 20 mg [Lasix 20 mg] Med 07/20/22 18:00 Active 20 mg PO DAILY Hydromorphone 1 mg/1Ml Inj [Hydromorphone 1 mg/ml [facility] 07/20/22 19:00 Ordered Injection] 0.5 mg IV Q2H PRN PRN Hydromorphone 1 mg/1Ml Inj [Hydromorphone 1 mg/ml [facility] 07/20/22 14:11 Discontinued Injection] 0.5 mg IV Q6H PRN PRN Hydromorphone 1 mg/1Ml Inj [Hydromorphone 1 mg/ml [facility] 07/20/22 12:49 Discontinued Injection] 0.5 mg IV STAT ONE Hydromorphone 1 mg/1Ml Inj [Hydromorphone 1 mg/ml [facility] 07/20/22 12:55 Discontinued Injection] 1 mg .ROUTE .STK-MED ONE Hydromorphone 1 mg/1Ml Inj [Hydromorphone 1 mg/ml [facility] 07/20/22 18:59 Once Injection] 1 mg IV STAT ONE Levofloxacin [Levofloxacin 500MG/100ML D5W] Med 07/21/22 10:00 Discontinued 500 mg in 100 ml IV Q24H10 Levofloxacin [Levofloxacin 500MG/100ML D5W] Med 07/20/22 12:08 Discontinued 500 mg in 100 ml IV STAT Levofloxacin [Levofloxacin 500MG/100ML D5W] Med 07/20/22 13:07 Discontinued 500 mg in 100 ml IV UD Levofloxacin [Levofloxacin 750Mg/150Ml D5w] Med 07/21/22 22:00 Active 750 mg in 150 ml IV Q48H Levothyroxine Sodium 75 Mcg [Synthroid 75 Mcg] Med 07/20/22 18:00 Active 75 mcg PO DAILY Medication Intervention Med 07/20/22 17:30 Active 1 each [facility] .RN TO CHECK Medication Intervention Med 07/20/22 17:30 Active 1 each [facility] .RN TO CHECK Metoprolol Succinate 25 mg Xl* [Toprol-Xl 25MG Tablets* Med 07/20/22 18:00 Active ] 25 mg PO DAILY Metronidazole 500 mg Premix [Flagyl 500 mg Ivpb] Med 07/20/22 18:00 Active 500 mg in 100 ml IV Q6HT Metronidazole 500 mg Premix [Flagyl 500 mg Ivpb] Med 07/20/22 12:08 Discontinued 500 mg in 100 ml IV STAT Metronidazole 500 mg Premix [Flagyl 500 mg Ivpb] Med 07/20/22 12:16 Discontinued 500 mg in 100 ml IV UD NaCl 0.9% 1000 ml [Sodium Chloride 0.9% 1000 ML] 000 Med 07/20/22 10:01 Discontinued ml .ROUTE UD NaCl 0.9% 1000 ml [Sodium Chloride 0.9% 1000 ML] 07/20/22 11:44 Discontinued ml .ROUTE UD NaCl 0.9% 1000 ml [Sodium Chloride 0.9% 1000 ML] 000 Med 07/20/22 14:11 Discontinued ml IV 50 mls/hr NaCl 0.9% 1000 ml [Sodium Chloride 0.9% 1000 ML] 000 Med 07/20/22 09:22 Discontinued ml IV 999 mls/hr NaCl 0.9% 1000 ml [Sodium Chloride 0.9% 1000 ML] 000 Med 07/20/22 11:27 Discontinued ml IV 999 mls/hr Ondansetron HCl 4 mg/2 ml [Zofran 4 MG/2 ML VIAL] Med 07/20/22 10:01 Discontinued 4 mg .ROUTE .STK-MED ONE Ondansetron HCl 4 mg/2 ml [Zofran 4 MG/2 ML VIAL] Med 07/20/22 14:11 Active 4 mg IV Q6H PRN PRN Ondansetron HCl 4 mg/2 ml [Zofran 4 MG/2 ML VIAL] Med 07/20/22 09:22 Disco ntinued 4 mg IV STAT ONE Pantoprazole 40 mg [Protonix 40 mg IV] Med 07/20/22 10:01 Discontinued 40 mg IV .STK-MED ONE Pantoprazole 40 mg [Protonix 40 mg IV] Med 07/20/22 09:22 Discontinued 40 mg IV STAT ONE Sertraline HCl 50 mg [Zoloft 50 mg Tablet] Med 07/20/22 18:00 Active 100 mg PO DAILY Simvastatin 20Mg [Zocor 20Mg] Med 07/20/22 22:00 Active 40 mg PO HS Oxygen Nasal Cannula 2 lpm RT 07/20/22 14:11 Active Pulse Oximetry .continuos RT 07/20/22 18:11 Active Pulse Oximetry ROUTINE RT 07/20/22 14:11 Completed Respiratory Therapy Consult ROUTINE RT 07/20/22 14:11 Completed Transfer Order Routine Transfer 07/20/22 Completed Patient Care Notes (Last 24 hours) 07/20/22 18:43 Nursing Note by Lyndsey Woodson I called consult to office and answering service paged doctor radiation control worker for [facility], which is . Initialized on 07/20/22 18:43 - END OF NOTE 07/20/22 18:39 Nursing Note by Tanika Dhaliwal PATIENT CONTINUES TO HAVE PAIN, -- FACIAL GRIMACING, MOANING, HOLDING LEFT UPPER ABDOMEN. WITHDRAWS FROM TOUCH UPON PALPATION. DOES NOT RATE PAIN. PRN PAIN MEDICATION NOT YET DUE. CALLED DR BAEZA. ORDER FOR [facility], PHARMACY TO DOSE. AND SURGICAL CONSULT. WILL CONTINUE TO MONITOR PATIENT Initialized on 07/20/22 18:39 - END OF NOTE Code(s): K52.9 - NONINFECTIVE GASTROENTERITIS AND COLITIS, UNSPECIFIED (2) Left upper lobe pneumonia Current Visit: Yes Status: Acute Qualifiers: Pneumonia type: due to Pneumococcus Qualified Code(s): J13 - Pneumonia due to Streptococcus pneumoniae Code(s): J18.9 - PNEUMONIA, UNSPECIFIED ORGANISM
[2022-07-20] MEDS ORDERED: NON-FORMULARY ITEM (Rosuvastatin Calcium [Rosuvastatin Calcium] 40 MG Tablet) PO SCH (22:00)
[2022-07-20] MEDS ORDERED: NON-FORMULARY ITEM (Apixaban*** [Eliquis 5 Mg Tablet***] 5 MG Tablet) PO SCH (22:00)
[2022-07-20] MEDS ORDERED: ELIQUIS 2.5 MG TABLET PO SCH (22:00)
[2022-07-20] MEDS: ELIQUIS 2.5 MG TABLET PO SCH (22:58)
[2022-07-20] MEDS: ZOCOR 20MG PO SCH (22:58)
[2022-07-21] MEDS: Hydromorphone 1 mg/ml Injection IV PRN ×6 (04:01→22:42)
[2022-07-21 05:05] LABS: Absolute Neutrophil Ct (ANC) 11.06 x10^3/uL (1.4-6.9); BASOPHIL % 0.4 % (0.0-0.4); Basophil (Absolute #) 0.05 x10^3/uL (0-0.4); Eosinophil % 0.3 % (0.00-5.0); Eosinophil (Absolute #) 0.04 x10^3/uL (0-0.5); Hematocrit 37.8 % (35-47); Hemoglobin 11.8 g/dL (12.0-16.0); IMMATURE GRAN # 0.14 x10^3u/L (0.00-0.03); Lymphocyte (Absolute #) 1.61 x10^3/uL (1.0-4.6); Lymphocytes % 11.7 % (24.0-44.0); Mean Cell Volume 91.1 fL (78-100); Mean Corpuscular Hemoglobin 28.4 pg (26-32); Mean Corpuscular Hgb Concent. 31.2 g/dL (32-36); Monocyte (Absolute #) 0.82 x10^3/uL (0.0-1.3); Neutrophil % 80.6 % (36.0-66.0); Platelet Count 138 x10^3/uL (150-450); Red Blood Count 4.15 x10^6/uL (4.1-5.4); Red Cell Distribution Width 14.3 % (11.5-14.0); White Blood Count 13.7 x10^3/uL (4.0-10.5)
[2022-07-21 05:25] LABS: ALBUMIN 3.1 g/dL (3.5-5.0); ANION GAP 12.8 MEQ/L (5-15); BILIRUBIN,TOTAL 1.3 mg/dL (0.2-1.3); Calcium 7.7 mg/dL (8.4-10.2); Creatinine 1 1.32 mg/dL (0.52-1.04); Total Protein 6.1 g/dL (6.3-8.2)
[2022-07-21 05:26] LABS: Lymphocytes 22 % (24-44); Monocyte 6 % (0.0-12.0); Neutrophils 72 % (36.0-66.0); Total Cells Counted 100
[2022-07-21 05:32] LABS: Burr Cells 1+; Hypochromia 1+; Platelet Estimate NORMAL (NORMAL)
[2022-07-21] MEDS: FLAGYL 500 MG IVPB 500 MG/100 ML BAG IV SCH ×3 (06:18→17:41)
[2022-07-21] MEDS: D5W/0.45NS W/ 20mEq KCl 1000 ML 1,000 ML IV SCH (08:39)
[2022-07-21] MEDS: ZOLOFT 50 MG TABLET PO SCH (08:41)
[2022-07-21] MEDS: LASIX 20 MG PO SCH (08:41)
[2022-07-21] MEDS: SYNTHROID 75 MCG PO SCH (08:41)
[2022-07-21] MEDS: Toprol-Xl 25MG Tablets PO SCH (08:41)
[2022-07-21] MEDS: ELIQUIS 2.5 MG TABLET PO SCH ×2 (08:41→21:52)
[2022-07-21] MEDS ORDERED: SYNTHROID 75 MCG PO SCH (10:00)
[2022-07-21] MEDS ORDERED: BIOTIN 10000 MCG PO SCH (10:00)
[2022-07-21] MEDS ORDERED: Levofloxacin 500MG/100ML D5W 500 MG/100 ML BAG IV SCH (10:00)
[2022-07-21] MEDS ORDERED: NON-FORMULARY ITEM (Dapagliflozin Propanediol [Farxiga] 10 MG Tablet) PO SCH (10:00)
[2022-07-21] MEDS ORDERED: NON-FORMULARY ITEM (Sertraline Hcl [Zoloft] 100 MG Tablet) PO SCH (10:00)
--- NOTE | 2022-07-21 12:58 | XRAY ---
Indication: Left breast pain 3 days. Multiple contiguous axial images obtained through the chest without contrast. Comparison: None Left lung demonstrates near complete consolidating airspace disease with mild effusion. Right lung demonstrates tiny effusion with mild right base dependent atelectasis. Heart not enlarged with scattered coronary calcifications. Aorta mildly atherosclerotic without aneurysm. No pathologic mediastinal lymphadenopathy. Bony thorax intact with osteopenia and mild/moderate degenerative changes throughout the spine. Limited upper abdomen demonstrates cholecystectomy clips and incompletely visualized 7.5 cm left renal cyst. Impression: 1. Near complete consolidating left lung airspace disease with effusion. Tiny right effusion with right base dependent atelectasis. 2. Chronic findings including arteriosclerotic disease, chronic bony findings, and 7.5 cm left renal cyst.
[2022-07-21] MEDS: DUONEB 0.5-3 MG/3 ml Neb IH PRN (13:32)
[2022-07-21] MEDS ORDERED: BUMEX 1 MG IV ONE (17:23)
--- NOTE | 2022-07-21 17:31 | PCM.NOTE ---
Date and Time: 07/21/221727 Subjective Assessment: Very short of breath. last 24 hours events noted. - Review of Systems Constitutional: Lethargy, Weakness, No Fever, No Chills Eyes: No Symptoms Ears, Nose, & Throat: No Symptoms Respiratory: Orthopnea, Short Of Breath, No Cough Cardiac: No Chest Pain, No Edema, No Syncope Abdominal/Gastrointestinal: No Abdominal Pain, No Nausea, No Vomiting, No Diarrhea Genitourinary Symptoms: No Dysuria Musculoskeletal: No Back Pain, No Neck Pain Skin: No Rash Neurological: No Dizziness, No Focal Weakness, No Sensory Changes Psychological: No Symptoms Endocrine: No Symptoms Hematologic/Lymphatic: No Symptoms Immunological/Allergic: No Symptoms Objective Exam General Appearance: moderate distress, lethargy Neurologic Exam: alert, No motor deficits Skin Exam: normal color, warm, dry Eye Exam: PERRL, EOMI, eyes nml inspection Ears, Nose, Throat Exam: normal ENT inspection, pharynx normal, moist mucous membranes Neck Exam: normal inspection, non-tender, supple, full range of motion Respiratory Exam: diminished breath sounds, crackles/rales, rhonchi, wheezing, No respiratory distress Cardiovascular Exam: regular rate/rhythm, normal heart sounds Gastrointestinal/Abdomen Exam: soft, No tenderness, No mass Extremity Exam: normal inspection, normal range of motion Back Exam: normal inspection, normal range of motion, No CVA tenderness, No vertebral tenderness Pelvic Exam: deferred Rectal Exam: deferred OBJECTIVE DATA Vital Signs: Vital Signs - 24 hr Temp Pulse Resp BP Pulse Ox 07/21/22 16:00 97.1 F 72 20 109/56 92 L 07/21/22 13:47 80 17 91 L 07/21/22 11:47 99.8 F 75 21 130/63 90 L 07/21/22 07:25 93 L 07/21/22 07:22 97.7 F 73 20 123/63 94 L 07/21/22 03:12 97.7 F 76 18 119/58 94 L 07/20/22 23:11 97.8 F 80 23 128/61 93 L 07/20/22 20:34 93 L 07/20/22 19:19 98.6 F 90 28 H 128/58 92 L Pain Assessment - Last Documented Pain Intensity 8 Pain Scale Used FLACC Intake and Output: Intake & Output 07/19/22 07/20/22 07/21/22 05/03/23 11:59 11:59 11:59 11:59 Intake Total 335 100 Balance 335 100 Weight 89.9 kg 89.6 kg Lab Results: Lab Results-Last 24 Hours 07/20/22 07/21/22 07/21/22 Range/Units 20:43 04:53 04:53 WBC 13.7 H (4.0-10.5) x10^3/uL RBC 4.15 (4.1-5.4) x10^6/uL Hgb 11.8 L (12.0-16.0) g/dL Hct 37.8 (35-47) % MCV 91.1 (78-100) fL MCH 28.4 (26-32) pg MCHC 31.2 L (32-36) g/dL RDW 14.3 H (11.5-14.0) % Plt Count 138 L (150-450) x10^3/uL MPV 11.0 (7.5-11.0) fL Gran % 80.6 H (36.0-66.0) % Immature Gran % (Auto) 1.0 H (0.00-0.4) % Nucleat RBC Rel Count 0.0 (0.00-0.1) % Eos # (Auto) 0.04 (0-0.5) x10^3/uL Immature Gran # (Auto) 0.14 H (0.00-0.03) x10^3u/L Absolute Lymphs (auto) 1.61 (1.0-4.6) x10^3/uL Absolute Monos (auto) 0.82 (0.0-1.3) x10^3/uL Absolute Nucleated RBC 0.00 (0.00-0.01) x10^3u/L Lymphocytes % 11.7 L (24.0-44.0) % Monocytes % 6.0 (0.0-12.0) % Eosinophils % 0.3 (0.00-5.0) % Basophils % 0.4 (0.0-0.4) % Absolute Granulocytes 11.06 H (1.4-6.9) x10^3/uL Segmented Neutrophils 72 H (36.0-66.0) % Lymphocytes (Manual) 22 L (24-44) % Monocytes (Manual) 6 (0.0-12.0) % Basophils # 0.05 (0-0.4) x10^3/uL Hypochromia 1+ Platelet Estimate NORMAL (NORMAL) RBC Morphology ABNORMAL Greg Cells 1+ Sodium 133 L (137-145) mmol/L Potassium 4.0 (3.5-5.1) mmol/L Chloride 101 (98-107) mmol/L Carbon Dioxide 23 (22-30) mmol/L Anion Gap 12.8 (5-15) MEQ/L BUN 38 H (7-17) mg/dL Creatinine 1.32 H (0.52-1.04) mg/dL Estimated GFR 41.0 ML/MIN Glucose 152 H (74-106) mg/dL POC Glucometer 176 H (74 to 106) mg/dL Hemoglobin A1c (4.5-6.0) % Calcium 7.7 L (8.4-10.2) mg/dL Total Bilirubin 1.30 (0.2-1.3) mg/dL AST 37 H (14-36) U/L ALT 29 (0-35) U/L Alkaline Phosphatase 39 (38-126) U/L NT-Pro-B Natriuret Pep 1260 (<300) pg/mL Serum Total Protein 6.1 L (6.3-8.2) g/dL Albumin 3.1 L (3.5-5.0) g/dL 07/21/22 07/21/22 07/21/22 Range/Units 04:53 07:05 11:29 WBC (4.0-10.5) x10^3/uL RBC (4.1-5.4) x10^6/uL Hgb (12.0-16.0) g/dL Hct (35-47) % MCV (78-100) fL MCH (26-32) pg MCHC (32-36) g/dL RDW (11.5-14.0) % Plt Count (150-450) x10^3/uL MPV (7.5-11.0) fL Gran % (36.0-66.0) % Immature Gran % (Auto) (0.00-0.4) % Nucleat RBC Rel Count (0.00-0.1) % Eos # (Auto) (0-0.5) x10^3/uL Immature Gran # (Auto) (0.00-0.03) x10^3u/L Absolute Lymphs (auto) (1.0-4.6) x10^3/uL Absolute Monos (auto) (0.0-1.3) x10^3/uL Absolute Nucleated RBC (0.00-0.01) x10^3u/L Lymphocytes % (24.0-44.0) % Monocytes % (0.0-12.0) % Eosinophils % (0.00-5.0) % Basophils % (0.0-0.4) % Absolute Granulocytes (1.4-6.9) x10^3/uL Segmented Neutrophils (36.0-66.0) % Lymphocytes (Manual) (24-44) % Monocytes (Manual) (0.0-12.0) % Basophils # (0-0.4) x10^3/uL Hypochromia Platelet Estimate (NORMAL) RBC Morphology Greg Cells Sodium (137-145) mmol/L Potassium (3.5-5.1) mmol/L Chloride (98-107) mmol/L Carbon Dioxide (22-30) mmol/L Anion Gap (5-15) MEQ/L BUN (7-17) mg/dL Creatinine (0.52-1.04) mg/dL Estimated GFR ML/MIN Glucose (74-106) mg/dL POC Glucometer 132 H 159 H (74 to 106) mg/dL Hemoglobin A1c 7.27 H (4.5-6.0) % Calcium (8.4-10.2) mg/dL Total Bilirubin (0.2-1.3) mg/dL AST (14-36) U/L ALT (0-35) U/L Alkaline Phosphatase (38-126) U/L NT-Pro-B Natriuret Pep (<300) pg/mL Serum Total Protein (6.3-8.2) g/dL Albumin (3.5-5.0) g/dL 07/21/22 Range/Units 16:24 WBC (4.0-10.5) x10^3/uL RBC (4.1-5.4) x10^6/uL Hgb (12.0-16.0) g/dL Hct (35-47) % MCV (78-100) fL MCH (26-32) pg MCHC (32-36) g/dL RDW (11.5-14.0) % Plt Count (150-450) x10^3/uL MPV (7.5-11.0) fL Gran % (36.0-66.0) % Immature Gran % (Auto) (0.00-0.4) % Nucleat RBC Rel Count (0.00-0.1) % Eos # (Auto) (0-0.5) x10^3/uL Immature Gran # (Auto) (0.00-0.03) x10^3u/L Absolute Lymphs (auto) (1.0-4.6) x10^3/uL Absolute Monos (auto) (0.0-1.3) x10^3/uL Absolute Nucleated RBC (0.00-0.01) x10^3u/L Lymphocytes % (24.0-44.0) % Monocytes % (0.0-12.0) % Eosinophils % (0.00-5.0) % Basophils % (0.0-0.4) % Absolute Granulocytes (1.4-6.9) x10^3/uL Segmented Neutrophils (36.0-66.0) % Lymphocytes (Manual) (24-44) % Monocytes (Manual) (0.0-12.0) % Basophils # (0-0.4) x10^3/uL Hypochromia Platelet Estimate (NORMAL) RBC Morphology Greg Cells Sodium (137-145) mmol/L Potassium (3.5-5.1) mmol/L Chloride (98-107) mmol/L Carbon Dioxide (22-30) mmol/L Anion Gap (5-15) MEQ/L BUN (7-17) mg/dL Creatinine (0.52-1.04) mg/dL Estimated GFR ML/MIN Glucose (74-106) mg/dL POC Glucometer 156 H (74 to 106) mg/dL Hemoglobin A1c (4.5-6.0) % Calcium (8.4-10.2) mg/dL Total Bilirubin (0.2-1.3) mg/dL AST (14-36) U/L ALT (0-35) U/L Alkaline Phosphatase (38-126) U/L NT-Pro-B Natriuret Pep (<300) pg/mL Serum Total Protein (6.3-8.2) g/dL Albumin (3.5-5.0) g/dL Radiology Exams: Radiology Procedures Category Date Time Status ABDOMEN AND PELVIS W/0 CONTRAS [CT] Stat Exams 07/20/22 09:23 Completed CHEST 1 VIEW (PORTABLE) Stat Exams 07/20/22 12:23 Completed CHEST WITHOUT CONTRAST [CT] Urgent Exams 07/21/22 12:04 Completed PULMONARY PERF VENTILATION [NUCMED] Urgent Exams 07/23/22 10:[address]/CHEST WITHOUT CONTRAST Indication: Left breast pain 3 days. Multiple contiguous axial images obtained through the chest without contrast. Comparison: None Left lung demonstrates near complete consolidating airspace disease with mild effusion. Right lung demonstrates tiny effusion with mild right base dependent atelectasis. Heart not enlarged with scattered coronary calcifications. Aorta mildly atherosclerotic without aneurysm. No pathologic mediastinal lymphadenopathy. Bony thorax intact with osteopenia and mild/moderate degenerative changes throughout the spine. Limited upper abdomen demonstrates cholecystectomy clips and incompletely visualized 7.5 cm left renal cyst. Impression: 1. Near complete consolidating left lung airspace disease with effusion. Tiny right effusion with right base dependent atelectasis. 2. Chronic findings including arteriosclerotic disease, chronic bony findings, and 7.5 cm left renal cyst. Assessment/Plan (1) Left upper lobe pneumonia Current Visit: Yes Status: Acute Qualifiers: Pneumonia type: due to Pneumococcus Qualified Code(s): J13 - Pneumonia due to Streptococcus pneumoniae Assessment & Plan: Chief Complaint Diagnosis left upper quadrant abdominal pain for 1-2 days Allergies Allergy/AdvReac Type Severity Reaction Status Date / Time morphine Allergy Verified 07/20/22 09:13 Vital Signs (Last 24 hours) Temp Pulse Resp BP Pulse Ox 07/21/22 16:00 97.1 F 72 20 109/56 92 L 07/21/22 13:47 80 17 91 L 07/21/22 11:47 99.8 F 75 21 130/63 90 L 07/21/22 07:25 93 L 07/21/22 07:22 97.7 F 73 20 123/63 94 L 07/21/22 03:12 97.7 F 76 18 119/58 94 L 07/20/22 23:11 97.8 F 80 23 128/61 93 L 07/20/22 20:34 93 L 07/20/22 19:19 98.6 F 90 28 H 128/58 92 L Home Medications Medication Instructions Recorded Confirmed Last Taken Type Biotin 1 cap PO DAILY 07/20/22 07/20/22 Unknown History Dapagliflozin Propanediol [Farxiga] 1 tab PO DAILY 07/20/22 07/20/22 Unknown History Ergocalciferol (Vitamin D2) 2 cap PO WEEKLY 07/20/22 07/20/22 Unknown History [Vitamin D2] Levothyroxine Sodium 75 Mcg 1 tab PO DAILY 07/20/22 07/20/22 Unknown History [Synthroid 75 Mcg] Metoprolol Succinate 25 mg Xl* 1 tab PO DAILY 07/20/22 07/20/22 Unknown History [Toprol-Xl 25MG Tablets] Rosuvastatin Calcium 1 tab PO HS 07/20/22 07/20/22 Unknown History Current Medications Generic Name Dose Route Start Last Admin Trade Name Freq PRN Reason Stop Dose Admin Acetaminophen 650 mg 07/20/22 14:11 Acetaminophen 325 Mg Tablet PO 08/19/22 14:10 Q4H PRN PRN PAIN, FEVER, HEADACHE Albuterol/Ipratropium 3 ml 07/21/22 13:28 07/21/22 13:32 Ipratropium/Albuterol Sulfate 3 Ml Ampul.Neb IH 08/20/22 13:27 3 ml Q4HPRN PRN Administration SHORTNESS OF BREATH/WHEEZING Apixaban 5 mg 07/20/22 22:00 07/21/22 08:41 Apixaban 2.5 Mg Tablet PO 08/19/22 21:59 5 mg BID LINDSAY Administration Methylprednisolone Sodium 0 mg 07/21/22 18:00 Succinate 60 mg/ Sterile Water IV 08/20/22 17:59 2 ml Q6HT LINDSAY Ergocalciferol 100,000 unit 07/25/22 10:00 Ergocalciferol (Vitamin D2) 50,000 Unit Capsule PO 08/24/22 09:59 WEEKLY LINDSAY Furosemide 20 mg 07/20/22 18:00 07/21/22 08:41 Furosemide 20 Mg Tablet PO 08/19/22 17:59 20 mg DAILY LINDSAY Administration Hydromorphone HCl 0.5 mg 07/20/22 19:00 07/21/22 15:25 Hydromorphone 1 Mg/1ml Inj IV 07/25/22 18:59 0.5 mg Q2H PRN PRN Administration PAIN Metronidazole 500 mg in 100 mls @ 200 mls/hr 07/20/22 18:00 07/21/22 12:21 Flagyl 500 Mg Ivpb IV 08/19/22 17:59 200 mls/hr Q6HT LINDSAY Administration Levofloxacin/Dextrose 750 mg in 150 mls @ 100 mls/hr 07/21/22 22:00 Levofloxacin 750mg/150ml D5w IV 08/20/22 21:59 Q48H LINDSAY Potassium Chloride/Dextrose/Sod Cl 1,000 mls @ 100 mls/hr 07/20/22 19:00 07/21/22 08:39 D5w/0.45ns W/ 20meq Kcl 1000 Ml IV 08/19/22 18:59 60 mls/hr .Q10H LINDSAY Administration Levothyroxine Sodium 75 mcg 07/20/22 18:00 07/21/22 08:41 Levothyroxine Sodium 75 Mcg Tablet PO 08/19/22 17:59 75 mcg DAILY LINDSAY Administration Metoprolol Succinate 25 mg 07/20/22 18:00 07/21/22 08:41 Metoprolol Succinate 25 Mg Xl Tab PO 08/19/22 17:59 25 mg DAILY LINDSAY Administration Miscellaneous Information 1 each 07/20/22 17:30 Medication Intervention 1 Each Each 08/19/22 17:29 .RN TO CHECK LINDSAY Miscellaneous Information 1 each 07/20/22 17:30 Medication Intervention 1 Each Each 08/19/22 17:29 .RN TO CHECK LINDSAY Ondansetron HCl 4 mg 07/20/22 14:11 Ondansetron Hcl 4 Mg/2 Ml Vial IV 08/19/22 14:10 Q6H PRN PRN NAUSEA/VOMITING Sertraline HCl 100 mg 07/20/22 18:00 07/21/22 08:41 Sertraline Hcl 50 Mg Tab PO 08/19/22 17:59 100 mg DAILY LINDSAY Administration Simvastatin 40 mg 07/20/22 22:00 07/20/22 22:58 Simvastatin 20 Mg Tablet PO 08/19/22 21:59 40 mg HS LINDSAY Administration Discontinued Medications Generic Name Dose Route Start Last Admin Trade Name Freq PRN Reason Stop Dose Admin Bumetanide 1 mg 07/21/22 17:23 Bumetanide 0.25 Mg/Ml 4ml Vial IV 07/21/22 17:24 STAT ONE Fentanyl Citrate 50 mcg 07/20/22 15:19 07/20/22 15:33 Fentanyl Citrate 100 Mcg/2 Ml* Vial IV 07/25/22 15:18 50 mcg Q6H PRN PRN Administration PAIN Fentanyl Citrate 50 mcg 07/20/22 21:10 07/21/22 03:01 Fentanyl Citrate 100 Mcg/2 Ml* Vial IV 07/25/22 21:08 50 mcg Q4H PRN PRN Administration PAIN Hydromorphone HCl 0.5 mg 07/20/22 12:49 07/20/22 12:56 Hydromorphone 1 Mg/1ml Inj IV 07/20/22 12:50 0.5 mg STAT ONE Administration Hydromorphone HCl Confirm 07/20/22 12:55 Hydromorphone 1 Mg/1ml Inj Administered 07/20/22 12:56 Dose 1 mg .ROUTE .STK-MED ONE Hydromorphone HCl 0.5 mg 07/20/22 14:11 Hydromorphone 1 Mg/1ml Inj IV 07/25/22 14:10 Q6H PRN PRN PAIN Hydromorphone HCl 1 mg 07/20/22 18:59 07/20/22 19:34 Hydromorphone 1 Mg/1ml Inj IV 07/20/22 19:00 1 mg STAT ONE Administration Sodium Chloride 1,000 mls @ 999 mls/hr 07/20/22 09:22 07/20/22 11:10 Sodium Chloride 0.9% 1000 Ml IV 07/20/22 10:22 Infused .Q1H1M STA Infusion Sodium Chloride Confirm 07/20/22 10:01 Sodium Chloride 0.9% 1000 Ml Administered 07/20/22 10:02 Dose 1,000 mls @ ud .ROUTE .STK-MED ONE Sodium Chloride 1,000 mls @ 999 mls/hr 07/20/22 11:27 07/20/22 12:57 Sodium Chloride 0.9% 1000 Ml IV 07/20/22 12:27 Infused .Q1H1M STA Infusion Sodium Chloride Confirm 07/20/22 11:44 Sodium Chloride 0.9% 1000 Ml Administered 07/20/22 11:45 Dose 1,000 mls @ ud .ROUTE .STK-MED ONE Levofloxacin/Dextrose 500 mg in 100 mls @ 100 mls/hr 07/20/22 12:08 07/20/22 13:08 Levofloxacin 500mg/100ml D5w IV 07/20/22 13:07 100 mls/hr STAT STA 100 mls/hr Administration Metronidazole 500 mg in 100 mls @ 200 mls/hr 07/20/22 12:08 07/20/22 12:55 Flagyl 500 Mg Ivpb IV 07/20/22 12:37 Infused STAT STA Infusion Metronidazole Confirm 07/20/22 12:16 Flagyl 500 Mg Ivpb Administered 07/20/22 12:17 Dose 500 mg in 100 mls @ ud IV .STK-MED ONE Levofloxacin/Dextrose Confirm 07/20/22 13:07 Levofloxacin 500mg/100ml D5w Administered 07/20/22 13:08 Dose 500 mg in 100 mls @ ud IV .STK-MED ONE Sodium Chloride 1,000 mls @ 50 mls/hr 07/20/22 14:11 07/20/22 17:59 Sodium Chloride 0.9% 1000 Ml IV 08/19/22 14:10 50 mls/hr .Q20H LINDSAY Administration Levofloxacin/Dextrose 500 mg in 100 mls @ 100 mls/hr 07/21/22 10:00 Levofloxacin 500mg/100ml D5w IV 08/20/22 09:59 Q24H10 LINDSAY Ondansetron HCl 4 mg 07/20/22 09:22 07/20/22 10:02 Ondansetron Hcl 4 Mg/2 Ml Vial IV 07/20/22 09:23 4 mg STAT ONE Administration Ondansetron HCl Confirm 07/20/22 10:01 Ondansetron Hcl 4 Mg/2 Ml Vial Administered 07/20/22 10:02 Dose 4 mg .ROUTE .STK-MED ONE Pantoprazole Sodium 40 mg 07/20/22 09:22 07/20/22 10:02 Pantoprazole 40 Mg Vial IV 07/20/22 09:23 40 mg STAT ONE Administration Pantoprazole Sodium Confirm 07/20/22 10:01 Pantoprazole 40 Mg Vial Administered 07/20/22 10:02 Dose 40 mg IV .STK-MED ONE Intake & Output (Last 24 hours) 07/19/22 07/20/22 07/21/22 07/22/22 11:59 11:59 11:59 11:59 Intake Total 335 100 Balance 335 100 Weight 89.9 kg 89.6 kg Microbiology Results (Last 24 hours) 07/20/22 10:25 Urine, Void Urine Culture - Preliminary NO GROWTH TO DATE 07/20/22 10:15 Blood Blood Culture - Pending Laboratory Results (Last 24 hours) 07/21/22 07/21/22 07/21/22 16:24 11:29 07:05 WBC RBC Hgb Hct MCV MCH MCHC RDW Plt Count MPV Gran % Immature Gran % (Auto) Nucleat RBC Rel Count Eos # (Auto) Immature Gran # (Auto) Absolute Lymphs (auto) Absolute Monos (auto) Absolute Nucleated RBC Lymphocytes % Monocytes % Eosinophils % Basophils % Absolute Granulocytes Segmented Neutrophils Lymphocytes (Manual) Monocytes (Manual) Basophils # Hypochromia Platelet Estimate RBC Morphology Greg Cells Sodium Potassium Chloride Carbon Dioxide Anion Gap BUN Creatinine Estimated GFR Glucose POC Glucometer 156 H 159 H 132 H Hemoglobin A1c Calcium Total Bilirubin AST ALT Alkaline Phosphatase NT-Pro-B Natriuret Pep Serum Total Protein Albumin 07/21/22 07/21/22 07/21/22 04:53 04:53 04:53 WBC 13.7 H RBC 4.15 Hgb 11.8 L Hct 37.8 MCV 91.1 MCH 28.4 MCHC 31.2 L RDW 14.3 H Plt Count 138 L MPV 11.0 Gran % 80.6 H Immature Gran % (Auto) 1.0 H Nucleat RBC Rel Count 0.0 Eos # (Auto) 0.04 Immature Gran # (Auto) 0.14 H Absolute Lymphs (auto) 1.61 Absolute Monos (auto) 0.82 Absolute Nucleated RBC 0.00 Lymphocytes % 11.7 L Monocytes % 6.0 Eosinophils % 0.3 Basophils % 0.4 Absolute Granulocytes 11.06 H Segmented Neutrophils 72 H Lymphocytes (Manual) 22 L Monocytes (Manual) 6 Basophils # 0.05 Hypochromia 1+ Platelet Estimate NORMAL RBC Morphology ABNORMAL Greg Cells 1+ Sodium 133 L Potassium 4.0 Chloride 101 Carbon Dioxide 23 Anion Gap 12.8 BUN 38 H Creatinine 1.32 H Estimated GFR 41.0 Glucose 152 H POC Glucometer Hemoglobin A1c 7.27 H Calcium 7.7 L Total Bilirubin 1.30 AST 37 H ALT 29 Alkaline Phosphatase 39 NT-Pro-B Natriuret Pep 1260 Serum Total Protein 6.1 L Albumin 3.1 L 07/20/22 20:43 WBC RBC Hgb Hct MCV MCH MCHC RDW Plt Count MPV Gran % Immature Gran % (Auto) Nucleat RBC Rel Count Eos # (Auto) Immature Gran # (Auto) Absolute Lymphs (auto) Absolute Monos (auto) Absolute Nucleated RBC Lymphocytes % Monocytes % Eosinophils % Basophils % Absolute Granulocytes Segmented Neutrophils Lymphocytes (Manual) Monocytes (Manual) Basophils # Hypochromia Platelet Estimate RBC Morphology Greg Cells Sodium Potassium Chloride Carbon Dioxide Anion Gap BUN Creatinine Estimated GFR Glucose POC Glucometer 176 H Hemoglobin A1c Calcium Total Bilirubin AST ALT Alkaline Phosphatase NT-Pro-B Natriuret Pep Serum Total Protein Albumin Orders (Last 24 hours) Category Date Time Status Catheter Care Record Q6H Care 07/21/22 13:00 Active Castro [Catheter-[place] Castro] STAT Care 07/21/22 12:03 Active POCT Glucose Check ACHS Care 07/20/22 18:46 Active Telemetry q6h Care 07/20/22 19:00 Active Consult Pulmonology ROUTINE Cons 07/21/22 12:03 Active Consult Surgery ROUTINE Cons 07/20/22 18:33 Active Infection Control Consult ROUTINE Cons 07/21/22 14:29 Active CHEST WITHOUT CONTRAST [CT] Urgent Exams 07/21/22 12:04 Completed PULMONARY PERF VENTILATION [NUCMED] Urgent Exams 07/23/22 10:00 Ordered CBC AM.LAB Lab 07/22/22 04:00 Ordered CBC W DIFF AM.LAB Lab 07/21/22 04:53 Completed CMP AM.LAB Lab 07/21/22 04:53 Completed CMP AM.LAB Lab 07/22/22 04:00 Ordered HEMOGLOBIN A1C Routine Lab 07/21/22 04:53 Completed Manual Differential NC Routine Lab 07/21/22 04:53 Completed NT PRO BNPII AM.LAB Lab 07/21/22 04:53 Completed POCT GLUCOSE Stat Lab 07/20/22 20:43 Completed POCT GLUCOSE Stat Lab 07/21/22 07:05 Completed POCT GLUCOSE Stat Lab 07/21/22 11:29 Completed POCT GLUCOSE Stat Lab 07/21/22 16:24 Completed Albuterol/Ipratropium 3ml Neb* [DUONEB 0.5-3 MG/3 ml Med 07/21/22 13:28 Active Neb] 3 ml IH Q4HPRN PRN Apixaban [Eliquis 2.5 mg Tablet] Med 07/20/22 22:00 Active 5 mg PO BID Bumetanide 1 mg [Bumex 1 mg] Med 07/21/22 17:23 Discontinued 1 mg IV STAT ONE D5w-0.45NACL W/ 20Meq KCl [D5W/0.45NS W/ 20mEq KCl 1000 Med 07/20/22 19:00 Active ML] 1,000 ml IV 100 mls/hr Ergocalciferol (Vitamin D2) [Vitamin D2] Med 07/25/22 10:00 Active 100,000 unit PO WEEKLY Fentanyl Citrate 100 Mcg/2 ml* [Sublimaze 100 Mcg/2 ml* Med 07/20/22 21:10 Discontinued ] 50 mcg IV Q4H PRN PRN Furosemide 20 mg [Lasix 20 mg] Med 07/20/22 18:00 Active 20 mg PO DAILY Hydromorphone 1 mg/1Ml Inj [Hydromorphone 1 mg/ml Med 07/20/22 19:00 Active Injection] 0.5 mg IV Q2H PRN PRN Hydromorphone 1 mg/1Ml Inj [Hydromorphone 1 mg/ml Med 07/20/22 18:59 Discontinued Injection] 1 mg IV STAT ONE Levofloxacin [Levofloxacin 500MG/100ML D5W] Med 07/21/22 10:00 Discontinued 500 mg in 100 ml IV Q24H10 Levofloxacin [Levofloxacin 750Mg/150Ml D5w] Med 07/21/22 22:00 Active 750 mg in 150 ml IV Q48H Levothyroxine Sodium 75 Mcg [Synthroid 75 Mcg] Med 07/20/22 18:00 Active 75 mcg PO DAILY Medication Intervention Med 07/20/22 17:30 Active 1 each MC .RN TO CHECK Medication Intervention Med 07/20/22 17:30 Active 1 each MC .RN TO CHECK Methylprednis Sod Succ 125 mg* [solu-MEDROL] 60 mg Med 07/21/22 18:00 Active Water For Injection,Sterile [Sterile H2O 10 ml] 2 ml IV Q6HT Metoprolol Succinate 25 mg Xl* [Toprol-Xl 25MG Tablets* Med 07/20/22 18:00 Active ] 25 mg PO DAILY Metronidazole 500 mg Premix [Flagyl 500 mg Ivpb] Med 07/20/22 18:00 Active 500 mg in 100 ml IV Q6HT Sertraline HCl 50 mg [Zoloft 50 mg Tablet] Med 07/20/22 18:00 Active 100 mg PO DAILY Simvastatin 20Mg [Zocor 20Mg] Med 07/20/22 22:00 Active 40 mg PO HS Pulse Oximetry .continuos RT 07/20/22 18:11 Active Respiratory Therapy Assessment DAILY RT 07/21/22 13:30 Active Patient Care Notes (Last 24 hours) 07/21/22 17:28 Nursing Note by Prachi Wright PATIENT WAS SEEN TODAY BY SHAGGY VILLEGAS [employer] FOR DR. MARTINEZ. RECEIVED THE FOLLOWING ORDERS: BUMEX 1MG IV ONCE AND SOLU MEDROL 60MG IV Q6HRS. DR. MARTINEZ WILL SEE PATIENT TOMORROW. Initialized on 07/21/22 17:28 - END OF NOTE 07/21/22 17:00 Nursing Note by Prachi Wright SPOKE TO ERIN DEL VALLE ON TELEPHONE AND UPDATED ON PATIENT CONDITION. MD STATES HE DOES NOT FEEL LIKE PATIENT NEEDS SURGICAL CONSULT AT THIS TIME AND THAT PAIN IS LIKELY RELATED TO WORSENING LEFT LUNG PNEUMONIA. STATES THAT IF PCP WISHES TO HAVE SURGICAL CONSULT CONTINUED AFTER ADMINISTRATIVE TECH SEES PATIENT TO LET HIM KNOW. Initialized on 07/21/22 17:00 - END OF NOTE 07/21/22 16:56 Nursing Note by Prachi Wright DR. NOTIFIED THAT DR. MARTINEZ WILL BE HERE TO SEE PATIENT TODAY BETWEEN 1700 AND 1730. Initialized on 07/21/22 16:56 - END OF NOTE 07/21/22 13:24 Nursing Note by Prachi Wright CALLED AND REPORTED CHEST CT RESULTS TO DR. BAEZA AT THIS TIME. STATES TO GET AHOLD OF [facility] MARTINEZ FOR CONSULT TODAY AND IF JUAN UNABLE TO COME INITIATE TRANSFER TO [facility]. ALSO REQUESTING THAT RESPIRATORY ASSESS PATIENT AND START ON CPAP OR BIPAP IF INDICATED AND START DUONEB TREATMENTS IF INDICATED. MD DOES NOT WISH TO CHANGE LASIX TO IV BUT WOULD LIKE TO CONTINUE PO LASIX. Initialized on 07/21/22 13:24 - END OF NOTE 07/21/22 13:19 Nursing Note by Maribel Hills CALLED PULMONOLOGY CONSULT TO DR. MARTINEZ'S OFFICE. PEMA WILL LET HIM KNOW ABOUT CONSULT. Initialized on 07/21/22 13:19 - END OF NOTE 07/21/22 13:05 Nursing Note by Prachi Wright CALLED AND LEFT MESSAGE FOR DR. BAEZA WITH HIS NURSE INDIGO AT [facility] REGARDING CHEST CT RESULTS. AWAITING ANY FURTHER ORDERS. Initialized on 07/21/22 13:05 - END OF NOTE 07/21/22 12:02 Nursing Note by Prachi Wright ROUNDED ON PATIENT WITH DR. BAEZA. RECEIVED THE FOLLOWING ORDERS: CT CHEST WITHOUT CONTRAST, CASTRO CATHETER, CONSULT AJ JUAN, CBC AND CMP TOMORROW MORNING. Initialized on 07/21/22 12:02 - END OF NOTE 07/20/22 18:43 Nursing Note by Lyndsey Woodson I called consult to office and answering service paged doctor medical authorization specialist for [facility], which is . Initialized on 07/20/22 18:43 - END OF NOTE 07/20/22 18:39 Nursing Note by Tanika Dhaliwal PATIENT CONTINUES TO HAVE PAIN, -- FACIAL GRIMACING, MOANING, HOLDING LEFT UPPER ABDOMEN. WITHDRAWS FROM TOUCH UPON PALPATION. DOES NOT RATE PAIN. PRN PAIN MEDICATION NOT YET DUE. CALLED DR BAEZA. ORDER FOR [facility]AT[facility] CHIEF, PHARMACY TO DOSE. AND SURGICAL CONSULT. WILL CONTINUE TO MONITOR PATIENT Initialized on 07/20/22 18:39 - END OF NOTE Code(s): J18.9 - PNEUMONIA, UNSPECIFIED ORGANISM (2) Enterocolitis Current Visit: Yes Status: Acute Code(s): K52.9 - NONINFECTIVE GASTROENTERITIS AND COLITIS, UNSPECIFIED
[2022-07-21] MEDS: solu-MEDROL 60 MG, Sterile H2O 10 ml 2 ML IV SCH ×2 (17:41)
[2022-07-21] MEDS: LEVOFLOXACIN 750MG/150ML D5W 750 MG/150 ML BAG IV SCH (21:49)
[2022-07-21] MEDS: ZOCOR 20MG PO SCH (21:52)
[2022-07-22] MEDS: Hydromorphone 1 mg/ml Injection IV PRN ×5 (01:10→19:49)
[2022-07-22] MEDS: FLAGYL 500 MG IVPB 500 MG/100 ML BAG IV SCH ×4 (01:13→18:27)
[2022-07-22] MEDS: solu-MEDROL 60 MG, Sterile H2O 10 ml 2 ML IV SCH ×8 (01:13→18:27)
[2022-07-22 05:11] LABS: Hematocrit 41.2 % (35-47); Hemoglobin 12.2 g/dL (12.0-16.0); Mean Corpuscular Hemoglobin 28.4 pg (26-32); Mean Corpuscular Hgb Concent. 29.6 g/dL (32-36); Mean Platelet Volume 11.5 fL (7.5-11.0); Platelet Count 117 x10^3/uL (150-450); Red Blood Count 4.29 x10^6/uL (4.1-5.4); Red Cell Distribution Width 14.6 % (11.5-14.0)
[2022-07-22 05:29] LABS: ALBUMIN 3.1 g/dL (3.5-5.0); ANION GAP 15.2 MEQ/L (5-15); BILIRUBIN,TOTAL 1.1 mg/dL (0.2-1.3); Calcium 7.7 mg/dL (8.4-10.2); Creatinine 1 1.07 mg/dL (0.52-1.04); EST GLOMERULAR FILTRATION RATE 52.2 ML/MIN; Total Protein 6.4 g/dL (6.3-8.2)
[2022-07-22] MEDS ORDERED: solu-MEDROL ONE ×3 (06:23→23:04)
[2022-07-22] MEDS: DUONEB 0.5-3 MG/3 ml Neb IH PRN (07:48)
[2022-07-22] MEDS: ZOLOFT 50 MG TABLET PO SCH (09:45)
[2022-07-22] MEDS: ELIQUIS 2.5 MG TABLET PO SCH ×2 (09:45→22:50)
[2022-07-22] MEDS: SYNTHROID 75 MCG PO SCH (09:45)
[2022-07-22] MEDS: Toprol-Xl 25MG Tablets PO SCH (09:45)
[2022-07-22] MEDS: LASIX 20 MG PO SCH (09:45)
--- NOTE | 2022-07-22 09:57 | XRAY ---
CLINICAL HISTORY:PNUEMONIA COMPARISON:Prior x-ray dated 07/20/2022. TECHNIQUES:X-ray of the chest showing 2 views: AP and lateral views; FINDINGS: Redemonstration of consolidation in left upper/ midzone. It is seen extending from the left hilar region to the periphery of the lung. Another area of opacification is seen in the left lower zone, which is obliterating the left costophrenic angle, lower part of the left heart border, and dome of the diaphragm. No obvious consolidation is seen in the right lung. Normal configuration of the mediastinum. The right hilum is normal in size and position. The cardiac size is difficult to comment as the left heart border is obliterated due to lung pathology. The right costophrenic and cardiophrenic angles are clear. Degenerative changes are seen in the spine. IMPRESSION: 1-Consolidation noted in the left upper and midzone representing pulmonary infection showing slight interval increase in size /worsening. 2-Another area of opacification is seen in the left lower zone, which is obliterating the left costophrenic angle, lower part of the left heart border, and dome of the diaphragm- new finding. 3-Suggested CT chest for further evaluation. Electronically Signed by: Chad Casillas MD. (07/22/2022 08:54:55 [employer])
--- NOTE | 2022-07-22 12:30 | PROG NOTE ---
DATE: 07/21/2022 HISTORY: [place] Arshad was admitted for pneumonia. The patient upon evaluation is lying in bed on nonrebreather, with family at bedside. She does appear to be somewhat dyspneic at rest with wheezing present. PHYSICAL EXAMINATION: HEENT: Awake, alert, lethargic. CVS: Regular rate and rhythm. RESPIRATORY: Nonrebreather in place, wheezing present. ABDOMEN: Soft. : Urine within normal limits. NEUROLOGIC: Alert, awake, lethargic. SKIN: Pale, warm, dry. ASSESSMENT: 1) Acute hypoxic respiratory failure. 2) Pneumonia. 3) Dehydration. PLAN OF CARE: 1) To continue nonrebreather and wean O2 as tolerated. 2) Continue IV antibiotics. 3) Bumex 1 mg IV x1 to assist with wheezing. 4) Repeat chest x-ray in the a.m. 5) Discussed with family at bedside who is requesting that patient be transferred to [facility] for higher level of care. However, the patient appears to be stable at this time and will evaluate need for transfer at a later date. As dictated by BARBRA Lyles.
[2022-07-22] MEDS: D5W/0.45NS W/ 20mEq KCl 1000 ML 1,000 ML IV SCH (15:19)
--- NOTE | 2022-07-22 21:41 | PCM.NOTE ---
Date and Time: 07/22/222138 Subjective Assessment: patient has confusion episodes - Review of Systems Constitutional: No Fever, No Chills Eyes: No Symptoms Ears, Nose, & Throat: No Symptoms Respiratory: Cough, Orthopnea, Short Of Breath Cardiac: No Chest Pain, No Edema, No Syncope Abdominal/Gastrointestinal: No Abdominal Pain, No Nausea, No Vomiting, No Diarrhea Genitourinary Symptoms: No Dysuria Musculoskeletal: No Back Pain, No Neck Pain Skin: No Rash Neurological: No Dizziness, No Focal Weakness, No Sensory Changes Psychological: No Symptoms Endocrine: No Symptoms Hematologic/Lymphatic: No Symptoms Immunological/Allergic: No Symptoms Objective Exam General Appearance: no apparent distress, alert Neurologic Exam: alert, oriented x 3, cooperative, normal mood/affect, nml cerebellar function, sensation nml, No motor deficits Skin Exam: normal color, warm, dry Eye Exam: PERRL, EOMI, eyes nml inspection Ears, Nose, Throat Exam: normal ENT inspection, pharynx normal, moist mucous membranes Neck Exam: normal inspection, non-tender, supple, full range of motion Respiratory Exam: diminished breath sounds, crackles/rales, rhonchi, wheezing, No respiratory distress Cardiovascular Exam: regular rate/rhythm, normal heart sounds Gastrointestinal/Abdomen Exam: soft, No tenderness, No mass Extremity Exam: normal inspection, normal range of motion Back Exam: normal inspection, normal range of motion, No CVA tenderness, No vertebral tenderness Pelvic Exam: deferred Rectal Exam: deferred OBJECTIVE DATA Vital Signs: Vital Signs - 24 hr Temp Pulse Resp BP Pulse Ox 07/22/22 20:00 97.5 F 70 18 113/65 95 07/22/22 19:10 64 14 95 07/22/22 16:00 97.3 F 91 H 13 128/68 94 L 07/22/22 12:17 94 L 07/22/22 12:00 97.8 F 76 18 142/68 94 L 07/22/22 07:53 83 18 95 07/22/22 07:00 97.1 F 81 15 117/98 92 L 07/22/22 04:00 98.5 F 73 21 116/58 93 L 07/22/22 00:00 98.2 F 94 H 22 131/60 95 Pain Assessment - Last Documented Pain Intensity 6 Pain Scale Used 0-10 Pain Scale Intake and Output: Intake & Output 07/20/22 07/21/22 07/22/22 07/23/22 11:59 11:59 11:59 11:59 Intake Total 335 2202 240 Output Total 1850 150 Balance 335 352 90 Weight 89.9 kg 89.6 kg 89.6 kg Lab Results: Lab Results-Last 24 Hours 07/22/22 07/22/22 07/22/22 Range/Units 04:28 04:28 06:45 WBC 12.0 H (4.0-10.5) x10^3/uL RBC 4.29 (4.1-5.4) x10^6/uL Hgb 12.2 (12.0-16.0) g/dL Hct 41.2 (35-47) % MCV 96.0 (78-100) fL MCH 28.4 (26-32) pg MCHC 29.6 L (32-36) g/dL RDW 14.6 H (11.5-14.0) % Plt Count 117 L (150-450) x10^3/uL MPV 11.5 H (7.5-11.0) fL Sodium 135 L (137-145) mmol/L Potassium 4.0 (3.5-5.1) mmol/L Chloride 102 (98-107) mmol/L Carbon Dioxide 22 (22-30) mmol/L Anion Gap 15.2 H (5-15) MEQ/L BUN 35 H (7-17) mg/dL Creatinine 1.07 H (0.52-1.04) mg/dL Estimated GFR 52.2 ML/MIN Glucose 208 H (74-106) mg/dL POC Glucometer 191 H (74 to 106) mg/dL Calcium 7.7 L (8.4-10.2) mg/dL Total Bilirubin 1.10 (0.2-1.3) mg/dL AST 36 (14-36) U/L ALT 28 (0-35) U/L Alkaline Phosphatase 44 (38-126) U/L Serum Total Protein 6.4 (6.3-8.2) g/dL Albumin 3.1 L (3.5-5.0) g/dL 07/22/22 07/22/22 07/22/22 Range/Units 12:03 16:39 21:01 WBC (4.0-10.5) x10^3/uL RBC (4.1-5.4) x10^6/uL Hgb (12.0-16.0) g/dL Hct (35-47) % MCV (78-100) fL MCH (26-32) pg MCHC (32-36) g/dL RDW (11.5-14.0) % Plt Count (150-450) x10^3/uL MPV (7.5-11.0) fL Sodium (137-145) mmol/L Potassium (3.5-5.1) mmol/L Chloride (98-107) mmol/L Carbon Dioxide (22-30) mmol/L Anion Gap (5-15) MEQ/L BUN (7-17) mg/dL Creatinine (0.52-1.04) mg/dL Estimated GFR ML/MIN Glucose (74-106) mg/dL POC Glucometer 226 H 251 H 228 H (74 to 106) mg/dL Calcium (8.4-10.2) mg/dL Total Bilirubin (0.2-1.3) mg/dL AST (14-36) U/L ALT (0-35) U/L Alkaline Phosphatase (38-126) U/L Serum Total Protein (6.3-8.2) g/dL Albumin (3.5-5.0) g/dL Radiology Exams: Radiology Procedures Category Date Time Status CHEST 2 VIEWS (PA AND LAT) Routine Exams 07/22/22 08:00 Completed CHEST 2 VIEWS (PA AND LAT) Routine Exams 07/24/22 07:00 Ordered CHEST WITHOUT CONTRAST [CT] Urgent Exams 07/21/22 12:04 Completed PULMONARY PERF VENTILATION [NUCMED] Urgent Exams 07/23/22 10:00 Ordered Assessment/Plan (1) Left upper lobe pneumonia Current Visit: Yes Status: Acute Qualifiers: Pneumonia type: due to Pneumococcus Qualified Code(s): J13 - Pneumonia due to Streptococcus pneumoniae Assessment & Plan: Chief Complaint Diagnosis left upper quadrant abdominal pain for 1-2 days Allergies Allergy/AdvReac Type Severity Reaction Status Date / Time morphine Allergy Verified 07/20/22 09:13 Vital Signs (Last 24 hours) Temp Pulse Resp BP Pulse Ox 07/22/22 20:00 97.5 F 70 18 113/65 95 07/22/22 19:10 64 14 95 07/22/22 16:00 97.3 F 91 H 13 128/68 94 L 07/22/22 12:17 94 L 07/22/22 12:00 97.8 F 76 18 142/68 94 L 07/22/22 07:53 83 18 95 07/22/22 07:00 97.1 F 81 15 117/98 92 L 07/22/22 04:00 98.5 F 73 21 116/58 93 L 07/22/22 00:00 98.2 F 94 H 22 131/60 95 Home Medications Medication Instructions Recorded Confirmed Last Taken Type Biotin 1 cap PO DAILY 07/20/22 07/20/22 Unknown History Dapagliflozin Propanediol [Farxiga] 1 tab PO DAILY 07/20/22 07/20/22 Unknown History Ergocalciferol (Vitamin D2) 2 cap PO WEEKLY 07/20/22 07/20/22 Unknown History [Vitamin D2] Levothyroxine Sodium 75 Mcg 1 tab PO DAILY 07/20/22 07/20/22 Unknown History [Synthroid 75 Mcg] Metoprolol Succinate 25 mg Xl* 1 tab PO DAILY 07/20/22 07/20/22 Unknown History [Toprol-Xl 25MG Tablets] Rosuvastatin Calcium 1 tab PO HS 07/20/22 07/20/22 Unknown History Current Medications Generic Name Dose Route Start Last Admin Trade Name Freq PRN Reason Stop Dose Admin Acetaminophen 650 mg 07/20/22 14:11 Acetaminophen 325 Mg Tablet PO 08/19/22 14:10 Q4H PRN PRN PAIN, FEVER, HEADACHE Albuterol/Ipratropium 3 ml 07/21/22 13:28 07/22/22 07:48 Ipratropium/Albuterol Sulfate 3 Ml Ampul.Neb IH 08/20/22 13:27 3 ml Q4HPRN PRN Administration SHORTNESS OF BREATH/WHEEZING Apixaban 5 mg 07/20/22 22:00 07/22/22 09:45 Apixaban 2.5 Mg Tablet PO 08/19/22 21:59 5 mg BID LINDSAY Administration Methylprednisolone Sodium 0 mg 07/21/22 18:00 07/22/22 18:27 Succinate 60 mg/ Sterile Water IV 08/20/22 17:59 60 mg 2 ml Q6HT LINDSAY Administration Ergocalciferol 100,000 unit 07/25/22 10:00 Ergocalciferol (Vitamin D2) 50,000 Unit Capsule PO 08/24/22 09:59 WEEKLY LINDSAY Furosemide 20 mg 07/20/22 18:00 07/22/22 09:45 Furosemide 20 Mg Tablet PO 08/19/22 17:59 20 mg DAILY LINDSAY Administration Hydromorphone HCl 1 mg 07/22/22 07:18 07/22/22 19:49 Hydromorphone 1 Mg/1ml Inj IV 07/27/22 07:17 1 mg Q3H PRN PRN Administration PAIN Metronidazole 500 mg in 100 mls @ 200 mls/hr 07/20/22 18:00 07/22/22 18:27 Flagyl 500 Mg Ivpb IV 08/19/22 17:59 200 mls/hr Q6HT LINDSAY Administration Levofloxacin/Dextrose 750 mg in 150 mls @ 100 mls/hr 07/21/22 22:00 07/21/22 21:49 Levofloxacin 750mg/150ml D5w IV 08/20/22 21:59 100 mls/hr Q48H LINDSAY Administration Potassium Chloride/Dextrose/Sod Cl 1,000 mls @ 100 mls/hr 07/20/22 19:00 07/22/22 15:19 D5w/0.45ns W/ 20meq Kcl 1000 Ml IV 08/19/22 18:59 60 mls/hr .Q10H LINDSAY Administration Piperacillin Sod/Tazobactam 100 mls @ 200 mls/hr 07/22/22 22:00 Sod 3.375 gm/ Sodium Chloride IV 07/25/22 21:59 Q8HT LINDSAY Levothyroxine Sodium 75 mcg 07/20/22 18:00 07/22/22 09:45 Levothyroxine Sodium 75 Mcg Tablet PO 08/19/22 17:59 75 mcg DAILY LINDSAY Administration Metoprolol Succinate 25 mg 07/20/22 18:00 07/22/22 09:45 Metoprolol Succinate 25 Mg Xl Tab PO 08/19/22 17:59 25 mg DAILY LINDSAY Administration Miscellaneous Information 1 each 07/20/22 17:30 Medication Intervention 1 Each Each 08/19/22 17:29 .RN TO CHECK LINDSAY Miscellaneous Information 1 each 07/20/22 17:30 Medication Intervention 1 Each Each 08/19/22 17:29 .RN TO CHECK LINDSAY Ondansetron HCl 4 mg 07/20/22 14:11 Ondansetron Hcl 4 Mg/2 Ml Vial IV 08/19/22 14:10 Q6H PRN PRN NAUSEA/VOMITING Sertraline HCl 100 mg 07/20/22 18:00 07/22/22 09:45 Sertraline Hcl 50 Mg Tab PO 08/19/22 17:59 100 mg DAILY LINDSAY Administration Simvastatin 40 mg 07/20/22 22:00 07/21/22 21:52 Simvastatin 20 Mg Tablet PO 08/19/22 21:59 40 mg HS LINDSAY Administration Discontinued Medications Generic Name Dose Route Start Last Admin Trade Name Freq PRN Reason Stop Dose Admin Bumetanide 1 mg 07/21/22 17:23 07/21/22 17:41 Bumetanide 0.25 Mg/Ml 4ml Vial IV 07/21/22 17:24 1 mg STAT ONE Administration Fentanyl Citrate 50 mcg 07/20/22 15:19 07/20/22 15:33 Fentanyl Citrate 100 Mcg/2 Ml* Vial IV 07/25/22 15:18 50 mcg Q6H PRN PRN Administration PAIN Fentanyl Citrate 50 mcg 07/20/22 21:10 07/21/22 03:01 Fentanyl Citrate 100 Mcg/2 Ml* Vial IV 07/25/22 21:08 50 mcg Q4H PRN PRN Administration PAIN Hydromorphone HCl 0.5 mg 07/20/22 12:49 07/20/22 12:56 Hydromorphone 1 Mg/1ml Inj IV 07/20/22 12:50 0.5 mg STAT ONE Administration Hydromorphone HCl Confirm 07/20/22 12:55 Hydromorphone 1 Mg/1ml Inj Administered 07/20/22 12:56 Dose 1 mg .ROUTE .STK-MED ONE Hydromorphone HCl 0.5 mg 07/20/22 14:11 Hydromorphone 1 Mg/1ml Inj IV 07/25/22 14:10 Q6H PRN PRN PAIN Hydromorphone HCl 1 mg 07/20/22 18:59 07/20/22 19:34 Hydromorphone 1 Mg/1ml Inj IV 07/20/22 19:00 1 mg STAT ONE Administration Hydromorphone HCl 0.5 mg 07/20/22 19:00 07/22/22 06:28 Hydromorphone 1 Mg/1ml Inj IV 07/25/22 18:59 1 mg Q2H PRN PRN Administration PAIN Sodium Chloride 1,000 mls @ 999 mls/hr 07/20/22 09:22 07/20/22 11:10 Sodium Chloride 0.9% 1000 Ml IV 07/20/22 10:22 Infused .Q1H1M STA Infusion Sodium Chloride Confirm 07/20/22 10:01 Sodium Chloride 0.9% 1000 Ml Administered 07/20/22 10:02 Dose 1,000 mls @ ud .ROUTE .STK-MED ONE Sodium Chloride 1,000 mls @ 999 mls/hr 07/20/22 11:27 07/20/22 12:57 Sodium Chloride 0.9% 1000 Ml IV 07/20/22 12:27 Infused .Q1H1M STA Infusion Sodium Chloride Confirm 07/20/22 11:44 Sodium Chloride 0.9% 1000 Ml Administered 07/20/22 11:45 Dose 1,000 mls @ ud .ROUTE .STK-MED ONE Levofloxacin/Dextrose 500 mg in 100 mls @ 100 mls/hr 07/20/22 12:08 07/20/22 13:08 Levofloxacin 500mg/100ml D5w IV 07/20/22 13:07 100 mls/hr STAT STA 100 mls/hr Administration Metronidazole 500 mg in 100 mls @ 200 mls/hr 07/20/22 12:08 07/20/22 12:55 Flagyl 500 Mg Ivpb IV 07/20/22 12:37 Infused STAT STA Infusion Metronidazole Confirm 07/20/22 12:16 Flagyl 500 Mg Ivpb Administered 07/20/22 12:17 Dose 500 mg in 100 mls @ ud IV .STK-MED ONE Levofloxacin/Dextrose Confirm 07/20/22 13:07 Levofloxacin 500mg/100ml D5w Administered 07/20/22 13:08 Dose 500 mg in 100 mls @ ud IV .STK-MED ONE Sodium Chloride 1,000 mls @ 50 mls/hr 07/20/22 14:11 07/20/22 17:59 Sodium Chloride 0.9% 1000 Ml IV 08/19/22 14:10 50 mls/hr .Q20H LINDSAY Administration Levofloxacin/Dextrose 500 mg in 100 mls @ 100 mls/hr 07/21/22 10:00 Levofloxacin 500mg/100ml D5w IV 08/20/22 09:59 Q24H10 LINDSAY Methylprednisolone Sodium Succinate Confirm 07/22/22 06:23 Methylprednis Sod Succ 125 Mg/2 Ml Vial Administered 07/22/22 06:24 Dose 125 mg .ROUTE .STK-MED ONE Methylprednisolone Sodium Succinate Confirm 07/22/22 18:25 Methylprednis Sod Succ 125 Mg/2 Ml Vial Administered 07/22/22 18:26 Dose 125 mg .ROUTE .STK-MED ONE Ondansetron HCl 4 mg 07/20/22 09:22 07/20/22 10:02 Ondansetron Hcl 4 Mg/2 Ml Vial IV 07/20/22 09:23 4 mg STAT ONE Administration Ondansetron HCl Confirm 07/20/22 10:01 Ondansetron Hcl 4 Mg/2 Ml Vial Administered 07/20/22 10:02 Dose 4 mg .ROUTE .STK-MED ONE Pantoprazole Sodium 40 mg 07/20/22 09:22 07/20/22 10:02 Pantoprazole 40 Mg Vial IV 07/20/22 09:23 40 mg STAT ONE Administration Pantoprazole Sodium Confirm 07/20/22 10:01 Pantoprazole 40 Mg Vial Administered 07/20/22 10:02 Dose 40 mg IV .STK-MED ONE Intake & Output (Last 24 hours) 07/20/22 07/21/22 07/22/22 07/23/22 11:59 11:59 11:59 11:59 Intake Total 335 2202 240 Output Total 1850 150 Balance 335 352 90 Weight 89.9 kg 89.6 kg 89.6 kg Microbiology Results (Last 24 hours) 07/20/22 10:25 Urine, Void Urine Culture - Final NO GROWTH 07/20/22 10:15 Blood Blood Culture - Preliminary NO GROWTH TO DATE 07/20/22 09:38 Blood Blood Culture - Preliminary NO GROWTH TO DATE Laboratory Results (Last 24 hours) 07/22/22 07/22/22 07/22/22 21:01 16:39 12:03 WBC RBC Hgb Hct MCV MCH MCHC RDW Plt Count MPV Sodium Potassium Chloride Carbon Dioxide Anion Gap BUN Creatinine Estimated GFR Glucose POC Glucometer 228 H 251 H 226 H Calcium Total Bilirubin AST ALT Alkaline Phosphatase Serum Total Protein Albumin 07/22/22 07/22/22 07/22/22 06:45 04:28 04:28 WBC 12.0 H RBC 4.29 Hgb 12.2 Hct 41.2 MCV 96.0 MCH 28.4 MCHC 29.6 L RDW 14.6 H Plt Count 117 L MPV 11.5 H Sodium 135 L Potassium 4.0 Chloride 102 Carbon Dioxide 22 Anion Gap 15.2 H BUN 35 H Creatinine 1.07 H Estimated GFR 52.2 Glucose 208 H POC Glucometer 191 H Calcium 7.7 L Total Bilirubin 1.10 AST 36 ALT 28 Alkaline Phosphatase 44 Serum Total Protein 6.4 Albumin 3.1 L Orders (Last 24 hours) Category Date Time Status CHEST 2 VIEWS (PA AND LAT) Routine Exams 07/22/22 08:00 Completed CHEST 2 VIEWS (PA AND LAT) Routine Exams 07/24/22 07:00 Ordered PULMONARY PERF VENTILATION [NUCMED] Urgent Exams 07/23/22 10:00 Ordered CBC AM.LAB Lab 07/22/22 04:28 Completed CMP AM.LAB Lab 07/22/22 04:28 Completed POCT GLUCOSE Stat Lab 07/22/22 06:45 Completed POCT GLUCOSE Stat Lab 07/22/22 12:03 Completed POCT GLUCOSE Stat Lab 07/22/22 16:39 Completed POCT GLUCOSE Stat Lab 07/22/22 21:01 Completed Ergocalciferol (Vitamin D2) [Vitamin D2] Med 07/25/22 10:00 Active 100,000 unit PO WEEKLY Hydromorphone 1 mg/1Ml Inj [Hydromorphone 1 mg/ml Med 07/22/22 07:18 Active Injection] 1 mg IV Q3H PRN PRN Levofloxacin [Levofloxacin 750Mg/150Ml D5w] Med 07/21/22 22:00 Active 750 mg in 150 ml IV Q48H Methylprednis Sod Succ 125 mg* [solu-MEDROL] Med 07/22/22 06:23 Discontinued 125 mg .ROUTE .STK-MED ONE Methylprednis Sod Succ 125 mg* [solu-MEDROL] Med 07/22/22 18:25 Discontinued 125 mg .ROUTE .STK-MED ONE Piperacillin/Tazobactam 3.375G [Piperacillin/Tazobactam Med 07/22/22 22:00 Ordered ] 3.375 gm NaCl 0.9% 100 ml Mini-Bag Plus [Sodium Chloride 100ML MINI-BAG PLUS] 100 ml IV Q8HT Patient Care Notes (Last 24 hours) 07/22/22 17:25 (created 07/22/22 17:40) Nursing Note by Lyndsey Woodson is her rounding on patient. Initialized on 07/22/22 17:40 - END OF NOTE Code(s): J18.9 - PNEUMONIA, UNSPECIFIED ORGANISM (2) Enterocolitis Current Visit: Yes Status: Acute Code(s): K52.9 - NONINFECTIVE GASTROENTERITIS AND COLITIS, UNSPECIFIED
[2022-07-22] MEDS ORDERED: PIPERACILLIN/TAZOBACTAM IV ONE (22:00)
[2022-07-22] MEDS ORDERED: Sodium Chloride 100ML MINI-BAG PLUS 100 ML IV ONE (22:01)
[2022-07-22] MEDS: PIPERACILLIN/TAZOBACTAM 3.375 GM in Sodium Chloride 100ML MINI-BAG PLUS 100 ML IV SCH (22:49)
[2022-07-22] MEDS: ZOCOR 20MG PO SCH (22:49)
[2022-07-23] MEDS: solu-MEDROL 60 MG, Sterile H2O 10 ml 2 ML IV SCH ×6 (01:38→11:14)
[2022-07-23] MEDS: FLAGYL 500 MG IVPB 500 MG/100 ML BAG IV SCH ×4 (01:39→17:00)
[2022-07-23] MEDS ORDERED: solu-MEDROL ONE ×2 (06:23→22:37)
[2022-07-23] MEDS ORDERED: PIPERACILLIN/TAZOBACTAM IV ONE (06:34)
[2022-07-23] MEDS ORDERED: Sodium Chloride 100ML MINI-BAG PLUS 100 ML IV ONE (06:34)
[2022-07-23] MEDS: PIPERACILLIN/TAZOBACTAM 3.375 GM in Sodium Chloride 100ML MINI-BAG PLUS 100 ML IV SCH ×3 (07:34→22:44)
--- NOTE | 2022-07-23 08:53 | PROG NOTE ---
DATE: 07/22/2022 HISTORY: The patient was evaluated by DENISE Lyles yesterday. The patient is resting comfortably. PHYSICAL EXAMINATION: She is on oxygen via nasal cannula at 4 liters saturating 95%. Remains afebrile, heart rate 96, blood pressure 137/70 and saturating 96%. HEENT: Normocephalic. Oral exam limited. CVS: First and second heart sounds are normal, regular, rhythmic. RESPIRATORY: Shows diminished breath sounds. Crackles are heard at the lung base. ABDOMEN: Soft. EXTREMITIES: No edema is noted. LABORATORY DATA AND TESTS: Labs, x-rays and CT chest were all reviewed. ASSESSMENT: This is an 81-year-old woman admitted with: 1) Left lower lobe community acquired pneumonia. 2) Hypoxemia secondary to above. 3) History of abdominal pain, left upper quadrant this likely is from pneumonia apparently improving clinically. 4) History of hypertension, dyslipidemia and hypothyroidism. RECOMMENDATIONS: 1) The patient appears comfortable. 2) White count is improving. 3) Continue IV antibiotics, Flagyl and Levaquin, will also add Zosyn to cover for broadening antibiotic spectrum mainly from pulmonary standpoint. 4) Continue other supportive care, repeat follow up x-ray in 48 hours keeping in mind that x-rays typically lag clinical improvement. Will continue to follow. Discussed with nursing staff.
[2022-07-23] MEDS: SYNTHROID 75 MCG PO SCH (09:51)
[2022-07-23] MEDS: ELIQUIS 2.5 MG TABLET PO SCH ×2 (09:51→22:45)
[2022-07-23] MEDS: LASIX 20 MG PO SCH (09:51)
[2022-07-23] MEDS: ZOLOFT 50 MG TABLET PO SCH (09:51)
[2022-07-23] MEDS: Toprol-Xl 25MG Tablets PO SCH (09:51)
[2022-07-23 10:15] LABS: Hematocrit 42.5 % (35-47); Hemoglobin 13.1 g/dL (12.0-16.0); Mean Corpuscular Hemoglobin 28.4 pg (26-32); Mean Corpuscular Hgb Concent. 30.8 g/dL (32-36); Mean Platelet Volume 11.5 fL (7.5-11.0); Platelet Count 128 x10^3/uL (150-450); Red Blood Count 4.62 x10^6/uL (4.1-5.4); Red Cell Distribution Width 14.6 % (11.5-14.0); White Blood Count 12.8 x10^3/uL (4.0-10.5)
[2022-07-23 10:32] LABS: ANION GAP 16.2 MEQ/L (5-15); Calcium 8.4 mg/dL (8.4-10.2); Creatinine 1 0.98 mg/dL (0.52-1.04); EST GLOMERULAR FILTRATION RATE 57.7 ML/MIN
[2022-07-23 11:25] LABS: Slide Review YES
[2022-07-23] MEDS: JARDIANCE PO SCH (12:40)
[2022-07-23] MEDS ORDERED: solu-MEDROL 40 MG, Sterile H2O 10 ml 2 ML IV SCH ×2 (14:00)
--- NOTE | 2022-07-23 14:24 | XRAY ---
CLINICAL HISTORY:ELEVATED D-DIMER, HYPOXIA COMPARISON:None; TECHNIQUES:A perfusion nuclear medicine exam was performed. FINDINGS: There is asymmetric uptake with decreased uptake diffusely on the left lung and a focal defect in the left upper lobe. The right lung shows normal homogeneous uptake. The chest x-ray shows a large focal infiltrate that matches the left upper lobe perfusion defect. IMPRESSION: Large focal matched defect in the left upper lobe and decreased uptake compared to the right lung. Intermediate probability of PE. [facility] ER was called at [phone] at 1:19 PM [employer]CIAL [employer]ER[employer]ITER, 07/23/2022 and results were verbally communicated to [place]. Electronically Signed by: Chad Casillas MD. (07/23/2022 13:21:23 [employer] UNDER[employer]ITER)
[2022-07-23] MEDS: D5W/0.45NS W/ 20mEq KCl 1000 ML 1,000 ML IV SCH (16:56)
--- NOTE | 2022-07-23 17:25 | PCM.NOTE ---
Date and Time: 07/23/221722 Subjective Assessment: doing better - Review of Systems Constitutional: No Fever, No Chills Eyes: No Symptoms Ears, Nose, & Throat: No Symptoms Respiratory: No Cough, No Short Of Breath Cardiac: No Chest Pain, No Edema, No Syncope Abdominal/Gastrointestinal: No Abdominal Pain, No Nausea, No Vomiting, No Diarrhea Genitourinary Symptoms: No Dysuria Musculoskeletal: No Back Pain, No Neck Pain Skin: No Rash Neurological: No Dizziness, No Focal Weakness, No Sensory Changes Psychological: No Symptoms Endocrine: No Symptoms Hematologic/Lymphatic: No Symptoms Immunological/Allergic: No Symptoms Objective Exam General Appearance: no apparent distress, alert Neurologic Exam: alert, oriented x 3, cooperative, normal mood/affect, nml cerebellar function, sensation nml, No motor deficits Skin Exam: normal color, warm, dry Eye Exam: PERRL, EOMI, eyes nml inspection Ears, Nose, Throat Exam: normal ENT inspection, pharynx normal, moist mucous membranes Neck Exam: normal inspection, non-tender, supple, full range of motion Respiratory Exam: diminished breath sounds, crackles/rales, rhonchi (left lung), No respiratory distress Cardiovascular Exam: regular rate/rhythm, normal heart sounds Gastrointestinal/Abdomen Exam: soft, No tenderness, No mass Extremity Exam: normal inspection, normal range of motion Back Exam: normal inspection, normal range of motion, No CVA tenderness, No vertebral tenderness Pelvic Exam: deferred Rectal Exam: deferred OBJECTIVE DATA Vital Signs: Vital Signs - 24 hr Temp Pulse Resp BP Pulse Ox 07/23/22 16:00 97.8 F 68 16 121/56 92 L 07/23/22 11:00 97.3 F 73 16 123/58 94 L 07/23/22 07:46 62 14 94 L 07/23/22 06:54 97.5 F 56 L 15 123/70 96 07/23/22 04:00 97.5 F 53 L 20 130/66 98 07/23/22 00:00 97.1 F 55 L 12 119/56 94 L 07/22/22 20:00 97.5 F 70 18 113/65 95 07/22/22 19:10 64 14 95 Pain Assessment - Last Documented Pain Intensity 2 Pain Scale Used 0-10 Pain Scale Intake and Output: Intake & Output 07/21/22 07/22/22 07/23/2207/24/23 11:59 11:59 11:59 11:59 Intake Total 335 2202 2308 240 Output Total 0770 900 500 Balance 129 319 2164 -260 Weight 89.6 kg 89.6 kg 89.5 kg Lab Results: Lab Results-Last 24 Hours 07/22/22 07/23/22 07/23/22 Range/Units 21:01 06:23 10:13 WBC 12.8 H (4.0-10.5) x10^3/uL RBC 4.62 (4.1-5.4) x10^6/uL Hgb 13.1 (12.0-16.0) g/dL Hct 42.5 (35-47) % MCV 92.0 (78-100) fL MCH 28.4 (26-32) pg MCHC 30.8 L (32-36) g/dL RDW 14.6 H (11.5-14.0) % Plt Count 128 L (150-450) x10^3/uL MPV 11.5 H (7.5-11.0) fL Sodium (137-145) mmol/L Potassium (3.5-5.1) mmol/L Chloride (98-107) mmol/L Carbon Dioxide (22-30) mmol/L Anion Gap (5-15) MEQ/L BUN (7-17) mg/dL Creatinine (0.52-1.04) mg/dL Estimated GFR ML/MIN Glucose (74-106) mg/dL POC Glucometer 228 H 247 H (74 to 106) mg/dL Calcium (8.4-10.2) mg/dL Slides for Path Review YES 07/23/22 07/23/22 07/23/22 Range/Units 10:13 10:36 16:33 WBC (4.0-10.5) x10^3/uL RBC (4.1-5.4) x10^6/uL Hgb (12.0-16.0) g/dL Hct (35-47) % MCV (78-100) fL MCH (26-32) pg MCHC (32-36) g/dL RDW (11.5-14.0) % Plt Count (150-450) x10^3/uL MPV (7.5-11.0) fL Sodium 139 (137-145) mmol/L Potassium 4.0 (3.5-5.1) mmol/L Chloride 104 (98-107) mmol/L Carbon Dioxide 24 (22-30) mmol/L Anion Gap 16.2 H (5-15) MEQ/L BUN 38 H (7-17) mg/dL Creatinine 0.98 (0.52-1.04) mg/dL Estimated GFR 57.7 ML/MIN Glucose 241 H (74-106) mg/dL POC Glucometer 250 H 311 H (74 to 106) mg/dL Calcium 8.4 (8.4-10.2) mg/dL Slides for Path Review Radiology Exams: Radiology Procedures Category Date Time Status CHEST 2 VIEWS (PA AND LAT) Routine Exams 07/22/22 08:00 Completed CHEST 2 VIEWS (PA AND LAT) Routine Exams 07/24/22 07:00 Ordered CHEST 2 VIEWS (PA AND LAT) Urgent Exams 07/23/22 07:06 Taken PULMONARY PERF VENTILATION [NUCMED] Urgent Exams 07/23/22 10:00 Completed Multi-Disciplinary Progress Notes: Multi-Disciplinary Progress Notes 07/23/22 11:34 Case Management Note by Carla Kingsley PATIENT A&O X 3 TODAY. PATIENT VERY PLEASANT AND CONVERSATIONAL. I DISCUSSED NEEDS AT [place] WITH PATIENT. SHE ADAMANTLY DECLINES A REHAB STAY. SHE REPORTS SHE HAS FRIENDS AND A DAUGHTER THAT WILL ENSURE SHE IS CARED FOR. I S/W DAUGHTER GUNNAR- SHE REPORTS SHE IS UNABLE TO HELP PATIENT AT DC D/T HER DAUGHTER CURRENTLY GETTING A KIDNEY TRANSPLANT AND SHE WILL NEED TO BE IN [place] WITH HER. SHE ADVISED A REHAB STAY FOR PATIENT. I S/W KENTRELL SNOW- PATIENT'S GOOD FRIEND. HE WAS NOTIFIED OF GUNNAR'S INABILITY TO HELP PATIENT AND THAT PATIENT IS ADAMANTLY AGAINST A REHAB STAY. HE VERIFIED UNDERSTANDING AND STATED PATIENT COULD COME STAY WITH HIM AND HIS IN [place] AT TIME OF DC. HE SAID THEY WILL BE ABLE TO HELP HER AND THAT HIS IS AN RN. HE IS ALSO OPEN TO [facility] AND WILL DISCUSS COMPANY OPTIONS WITH HIS . S/W PATIENT ABOUT WHAT GUNNAR AND T ERRY BOTH HAD TO OFFER. SHE WOULD LIKE TO DC HOME WITH KENTRELL AT TIME OF DC WITH THE [facility]. PATIENT VERY HAPPY WITH THIS SOLUTION AND AGAIN VOICED THAT UNDER NO CIRCUMSTANCE WOULD SHE GO TO REHAB. WILL SET UP [facility] ONCE KENTRELL HAS DECIDED ON COMPANY Initialized on 07/23/22 11:34 - END OF NOTE Assessment/Plan (1) Left upper lobe pneumonia Current Visit: Yes Status: Acute Qualifiers: Pneumonia type: due to Pneumococcus Qualified Code(s): J13 - Pneumonia due to Streptococcus pneumoniae Assessment & Plan: Chief Complaint Diagnosis PNEUMONIA, ACUTE HYPOXIC RESPIRATORY FAILURE Allergies Allergy/AdvReac Type Severity Reaction Status Date / Time morphine Allergy Verified 07/20/22 09:13 Vital Signs (Last 24 hours) Temp Pulse Resp BP Pulse Ox 07/23/22 16:00 97.8 F 68 16 121/56 92 L 07/23/22 11:00 97.3 F 73 16 123/58 94 L 07/23/22 07:46 62 14 94 L 07/23/22 06:54 97.5 F 56 L 15 123/70 96 07/23/22 04:00 97.5 F 53 L 20 130/66 98 07/23/22 00:00 97.1 F 55 L 12 119/56 94 L 07/22/22 20:00 97.5 F 70 18 113/65 95 07/22/22 19:10 64 14 95 Home Medications Medication Instructions Recorded Confirmed Last Taken Type Biotin 1 cap PO DAILY 07/20/22 07/20/22 Unknown History Dapagliflozin Propanediol [Farxiga] 1 tab PO DAILY 07/20/22 07/20/22 Unknown History Ergocalciferol (Vitamin D2) 2 cap PO WEEKLY 07/20/22 07/20/22 Unknown History [Vitamin D2] Levothyroxine Sodium 75 Mcg 1 tab PO DAILY 07/20/22 07/20/22 Unknown History [Synthroid 75 Mcg] Metoprolol Succinate 25 mg Xl* 1 tab PO DAILY 07/20/22 07/20/22 Unknown History [Toprol-Xl 25MG Tablets] Rosuvastatin Calcium 1 tab PO HS 07/20/22 07/20/22 Unknown History Current Medications Generic Name Dose Route Start Last Admin Trade Name Freq PRN Reason Stop Dose Admin Acetaminophen 650 mg 07/20/22 14:11 07/23/22 14:59 Acetaminophen 325 Mg Tablet PO 08/19/22 14:10 650 mg Q4H PRN PRN Administration PAIN, FEVER, HEADACHE Albuterol/Ipratropium 3 ml 07/21/22 13:28 07/22/22 07:48 Ipratropium/Albuterol Sulfate 3 Ml Ampul.Neb IH 08/20/22 13:27 3 ml Q4HPRN PRN Administration SHORTNESS OF BREATH/WHEEZING Apixaban 5 mg 07/20/22 22:00 07/23/22 09:51 Apixaban 2.5 Mg Tablet PO 08/19/22 21:59 5 mg BID LINDSAY Administration Methylprednisolone Sodium 0 mg 07/23/22 22:00 Succinate 40 mg/ Sterile Water IV 08/22/22 21:59 1 ml Q8HT LINDSAY Empagliflozin 10 mg 07/23/22 13:00 07/23/22 12:40 Empagliflozin 10 Mg Tablet PO 08/22/22 12:59 10 mg DAILY LINDSAY Administration Ergocalciferol 100,000 unit 07/25/22 10:00 Ergocalciferol (Vitamin D2) 50,000 Unit Capsule PO 08/24/22 09:59 WEEKLY LINDSAY Furosemide 20 mg 07/20/22 18:00 07/23/22 09:51 Furosemide 20 Mg Tablet PO 08/19/22 17:59 20 mg DAILY LINDSAY Administration Metronidazole 500 mg in 100 mls @ 200 mls/hr 07/20/22 18:00 07/23/22 17:00 Flagyl 500 Mg Ivpb IV 08/19/22 17:59 200 mls/hr Q6HT LINDSAY Administration Levofloxacin/Dextrose 750 mg in 150 mls @ 100 mls/hr 07/21/22 22:00 07/21/22 21:49 Levofloxacin 750mg/150ml D5w IV 08/20/22 21:59 100 mls/hr Q48H LINDSAY Administration Potassium Chloride/Dextrose/Sod Cl 1,000 mls @ 100 mls/hr 07/20/22 19:00 07/23/22 16:56 D5w/0.45ns W/ 20meq Kcl 1000 Ml IV 08/19/22 18:59 60 mls/hr .Q10H LINDSAY Administration Piperacillin Sod/Tazobactam 100 mls @ 200 mls/hr 07/22/22 22:00 07/23/22 14:55 Sod 3.375 gm/ Sodium Chloride IV 07/25/22 21:59 200 mls/hr Q8HT LINDSAY Administration Levothyroxine Sodium 75 mcg 07/20/22 18:00 07/23/22 09:51 Levothyroxine Sodium 75 Mcg Tablet PO 08/19/22 17:59 75 mcg DAILY LINDSAY Administration Metoprolol Succinate 25 mg 07/20/22 18:00 07/23/22 09:51 Metoprolol Succinate 25 Mg Xl Tab PO 08/19/22 17:59 25 mg DAILY LINDSAY Administration Miscellaneous Information 1 each 07/20/22 17:30 Medication Intervention 1 Each Each 08/19/22 17:29 .RN TO CHECK LINDSAY Miscellaneous Information 1 each 07/20/22 17:30 Medication Intervention 1 Each Each 08/19/22 17:29 .RN TO CHECK LINDSAY Ondansetron HCl 4 mg 07/20/22 14:11 Ondansetron Hcl 4 Mg/2 Ml Vial IV 08/19/22 14:10 Q6H PRN PRN NAUSEA/VOMITING Sertraline HCl 100 mg 07/20/22 18:00 07/23/22 09:51 Sertraline Hcl 50 Mg Tab PO 08/19/22 17:59 100 mg DAILY LINDSAY Administration Simvastatin 40 mg 07/20/22 22:00 07/22/22 22:49 Simvastatin 20 Mg Tablet PO 08/19/22 21:59 40 mg HS LINDSAY Administration Discontinued Medications Generic Name Dose Route Start Last Admin Trade Name Freq PRN Reason Stop Dose Admin Bumetanide 1 mg 07/21/22 17:23 07/21/22 17:41 Bumetanide 0.25 Mg/Ml 4ml Vial IV 07/21/22 17:24 1 mg STAT ONE Administration Methylprednisolone Sodium 0 mg 07/21/22 18:00 07/23/22 11:14 Succinate 60 mg/ Sterile Water IV 08/20/22 17:59 60 mg 2 ml Q6HT LINDSAY Administration Fentanyl Citrate 50 mcg 07/20/22 15:19 07/20/22 15:33 Fentanyl Citrate 100 Mcg/2 Ml* Vial IV 07/25/22 15:18 50 mcg Q6H PRN PRN Administration PAIN Fentanyl Citrate 50 mcg 07/20/22 21:10 07/21/22 03:01 Fentanyl Citrate 100 Mcg/2 Ml* Vial IV 07/25/22 21:08 50 mcg Q4H PRN PRN Administration PAIN Hydromorphone HCl 0.5 mg 07/20/22 12:49 07/20/22 12:56 Hydromorphone 1 Mg/1ml Inj IV 07/20/22 12:50 0.5 mg STAT ONE Administration Hydromorphone HCl Confirm 07/20/22 12:55 Hydromorphone 1 Mg/1ml Inj Administered 07/20/22 12:56 Dose 1 mg .ROUTE .STK-MED ONE Hydromorphone HCl 0.5 mg 07/20/22 14:11 Hydromorphone 1 Mg/1ml Inj IV 07/25/22 14:10 Q6H PRN PRN PAIN Hydromorphone HCl 1 mg 07/20/22 18:59 07/20/22 19:34 Hydromorphone 1 Mg/1ml Inj IV 07/20/22 19:00 1 mg STAT ONE Administration Hydromorphone HCl 0.5 mg 07/20/22 19:00 07/22/22 06:28 Hydromorphone 1 Mg/1ml Inj IV 07/25/22 18:59 1 mg Q2H PRN PRN Administration PAIN Hydromorphone HCl 1 mg 07/22/22 07:18 07/22/22 19:49 Hydromorphone 1 Mg/1ml Inj IV 07/27/22 07:17 1 mg Q3H PRN PRN Administration PAIN Sodium Chloride 1,000 mls @ 999 mls/hr 07/20/22 09:22 07/20/22 11:10 Sodium Chloride 0.9% 1000 Ml IV 07/20/22 10:22 Infused .Q1H1M STA Infusion Sodium Chloride Confirm 07/20/22 10:01 Sodium Chloride 0.9% 1000 Ml Administered 07/20/22 10:02 Dose 1,000 mls @ ud .ROUTE .STK-MED ONE Sodium Chloride 1,000 mls @ 999 mls/hr 07/20/22 11:27 07/20/22 12:57 Sodium Chloride 0.9% 1000 Ml IV 07/20/22 12:27 Infused .Q1H1M STA Infusion Sodium Chloride Confirm 07/20/22 11:44 Sodium Chloride 0.9% 1000 Ml Administered 07/20/22 11:45 Dose 1,000 mls @ ud .ROUTE .STK-MED ONE Levofloxacin/Dextrose 500 mg in 100 mls @ 100 mls/hr 07/20/22 12:08 07/20/22 13:08 Levofloxacin 500mg/100ml D5w IV 07/20/22 13:07 100 mls/hr STAT STA 100 mls/hr Administration Metronidazole 500 mg in 100 mls @ 200 mls/hr 07/20/22 12:08 07/20/22 12:55 Flagyl 500 Mg Ivpb IV 07/20/22 12:37 Infused STAT STA Infusion Metronidazole Confirm 07/20/22 12:16 Flagyl 500 Mg Ivpb Administered 07/20/22 12:17 Dose 500 mg in 100 mls @ ud IV .STK-MED ONE Levofloxacin/Dextrose Confirm 07/20/22 13:07 Levofloxacin 500mg/100ml D5w Administered 07/20/22 13:08 Dose 500 mg in 100 mls @ ud IV .STK-MED ONE Sodium Chloride 1,000 mls @ 50 mls/hr 07/20/22 14:11 07/20/22 17:59 Sodium Chloride 0.9% 1000 Ml IV 08/19/22 14:10 50 mls/hr .Q20H LINDSAY Administration Levofloxacin/Dextrose 500 mg in 100 mls @ 100 mls/hr 07/21/22 10:00 Levofloxacin 500mg/100ml D5w IV 08/20/22 09:59 Q24H10 LINDSAY Sodium Chloride Confirm 07/22/22 22:01 Sodium Chloride 100ml Mini-Bag Plus Administered 07/22/22 22:02 Dose 100 mls @ ud IV .STK-MED ONE Sodium Chloride Confirm 07/23/22 06:34 Sodium Chloride 100ml Mini-Bag Plus Administered 07/23/22 06:35 Dose 100 mls @ ud IV .STK-MED ONE Methylprednisolone Sodium Succinate Confirm 07/22/22 06:23 Methylprednis Sod Succ 125 Mg/2 Ml Vial Administered 07/22/22 06:24 Dose 125 mg .ROUTE .STK-MED ONE Methylprednisolone Sodium Succinate Confirm 07/22/22 18:25 Methylprednis Sod Succ 125 Mg/2 Ml Vial Administered 07/22/22 18:26 Dose 125 mg .ROUTE .STK-MED ONE Methylprednisolone Sodium Succinate Confirm 07/22/22 23:04 Methylprednis Sod Succ 125 Mg/2 Ml Vial Administered 07/22/22 23:05 Dose 125 mg .ROUTE .STK-MED ONE Methylprednisolone Sodium Succinate Confirm 07/23/22 06:23 Methylprednis Sod Succ 125 Mg/2 Ml Vial Administered 07/23/22 06:24 Dose 125 mg .ROUTE .STK-MED ONE Ondansetron HCl 4 mg 07/20/22 09:22 07/20/22 10:02 Ondansetron Hcl 4 Mg/2 Ml Vial IV 07/20/22 09:23 4 mg STAT ONE Administration Ondansetron HCl Confirm 07/20/22 10:01 Ondansetron Hcl 4 Mg/2 Ml Vial Administered 07/20/22 10:02 Dose 4 mg .ROUTE .STK-MED ONE Pantoprazole Sodium 40 mg 07/20/22 09:22 07/20/22 10:02 Pantoprazole 40 Mg Vial IV 07/20/22 09:23 40 mg STAT ONE Administration Pantoprazole Sodium Confirm 07/20/22 10:01 Pantoprazole 40 Mg Vial Administered 07/20/22 10:02 Dose 40 mg IV .STK-MED ONE Piperacillin Sod/Tazobactam Sod Confirm 07/22/22 22:00 Piperacillin/Tazobactam Sodium 3.375 Gm Vial Administered 07/22/22 22:01 Dose 3.375 gm IV .STK-MED ONE Piperacillin Sod/Tazobactam Sod Confirm 07/23/22 06:34 Piperacillin/Tazobactam Sodium 3.375 Gm Vial Administered 07/23/22 06:35 Dose 3.375 gm IV .STK-MED ONE Intake & Output (Last 24 hours) 07/21/22 07/22/22 07/23/22 07/24/22 11:59 11:59 11:59 11:59 Intake Total 335 2202 2308 240 Output Total 1850 900 500 Balance 589 056 4429 -260 Weight 89.6 kg 89.6 kg 89.5 kg Laboratory Results (Last 24 hours) 07/23/22 07/23/22 07/23/22 16:33 10:36 10:13 WBC RBC Hgb Hct MCV MCH MCHC RDW Plt Count MPV Sodium 139 Potassium 4.0 Chloride 104 Carbon Dioxide 24 Anion Gap 16.2 H BUN 38 H Creatinine 0.98 Estimated GFR 57.7 Glucose 241 H POC Glucometer 311 H 250 H Calcium 8.4 Slides for Path Review 07/23/22 07/23/22 07/22/22 10:13 06:23 21:01 WBC 12.8 H RBC 4.62 Hgb 13.1 Hct 42.5 MCV 92.0 MCH 28.4 MCHC 30.8 L RDW 14.6 H Plt Count 128 L MPV 11.5 H Sodium Potassium Chloride Carbon Dioxide Anion Gap BUN Creatinine Estimated GFR Glucose POC Glucometer 247 H 228 H Calcium Slides for Path Review YES Orders (Last 24 hours) Category Date Time Status Up in Chair TID Activity 07/23/22 15:00 Active Discharge Planning,Consult Routine Discharge 07/23/22 Active CHEST 2 VIEWS (PA AND LAT) Routine Exams 07/24/22 07:00 Ordered CHEST 2 VIEWS (PA AND LAT) Urgent Exams 07/23/22 07:06 Taken PULMONARY PERF VENTILATION [NUCMED] Urgent Exams 07/23/22 10:00 Completed BMP Urgent Lab 07/23/22 10:13 Completed CBC AM.LAB Lab 07/24/22 04:00 Ordered CBC Urgent Lab 07/23/22 10:13 Completed CMP AM.LAB Lab 07/24/22 04:00 Ordered POCT GLUCOSE Stat Lab 07/22/22 16:39 Completed POCT GLUCOSE Stat Lab 07/22/22 21:01 Completed POCT GLUCOSE Stat Lab 07/23/22 06:23 Completed POCT GLUCOSE Stat Lab 07/23/22 10:36 Completed POCT GLUCOSE Stat Lab 07/23/22 16:33 Completed Empagliflozin [Jardiance] Med 07/23/22 13:00 Active 10 mg PO DAILY Ergocalciferol (Vitamin D2) [Vitamin D2] Med 07/25/22 10:00 Active 100,000 unit PO WEEKLY Methylprednis Sod Succ 125 mg* [solu-MEDROL] Med 07/22/22 18:25 Discontinued 125 mg .ROUTE .STK-MED ONE Methylprednis Sod Succ 125 mg* [solu-MEDROL] Med 07/22/22 23:04 Discontinued 125 mg .ROUTE .STK-MED ONE Methylprednis Sod Succ 125 mg* [solu-MEDROL] Med 07/23/22 06:23 Discontinued 125 mg .ROUTE .STK-MED ONE Methylprednisolone Sod Suc 40M [solu-MEDROL] 40 mg Med 07/23/22 22:00 Active Water For Injection,Sterile [Sterile H2O 10 ml] 1 ml IV Q8HT NaCl 0.9% 100 ml Mini-Bag Plus [Sodium Chloride 100ML Med 07/22/22 22:01 Discontinued MINI-BAG PLUS] 100 ml IV UD NaCl 0.9% 100 ml Mini-Bag Plus [Sodium Chloride 100ML Med 07/23/22 06:34 Discontinued MINI-BAG PLUS] 100 ml IV UD Piperacillin/Tazobactam 3.375G [Piperacillin/Tazobactam Med 07/22/22 22:00 Discontinued ] 3.375 gm IV .STK-MED ONE Piperacillin/Tazobactam 3.375G [Piperacillin/Tazobactam Med 07/23/22 06:34 Discontinued ] 3.375 gm IV .STK-MED ONE Piperacillin/Tazobactam 3.375G [Piperacillin/Tazobactam Med 07/22/22 22:00 Active ] 3.375 gm NaCl 0.9% 100 ml Mini-Bag Plus [Sodium Chloride 100ML MINI-BAG PLUS] 100 ml IV Q8HT PT Eval & Treat (MD Order) ONCE PT 07/23/22 11:34 Completed Patient Care Notes (Last 24 hours) 07/23/22 11:34 Case Management Note by Carla Kingsley PATIENT A&O X 3 TODAY. PATIENT VERY PLEASANT AND CONVERSATIONAL. I DISCUSSED NEEDS AT DC WITH PATIENT. SHE ADAMANTLY DECLINES A REHAB STAY. SHE REPORTS SHE HAS FRIENDS AND A DAUGHTER THAT WILL ENSURE SHE IS CARED FOR. I S/W DAUGHTER GUNNAR- SHE REPORTS SHE IS UNABLE TO HELP PATIENT AT DC D/T HER DAUGHTER CURRENTLY GETTING A KIDNEY TRANSPLANT AND SHE WILL NEED TO BE IN [place] WITH HER. SHE ADVISED A REHAB STAY FOR PATIENT. I S/W KENTRELL SNOW- PATIENT'S GOOD FRIEND. HE WAS NOTIFIED OF GUNNAR'S INABILITY TO HELP PATIENT AND THAT PATIENT IS ADAMANTLY AGAINST A REHAB STAY. HE VERIFIED UNDERSTANDING AND STATED PATIENT COULD COME STAY WITH HIM AND HIS IN [place] AT TIME OF DC. HE SAID THEY WILL BE ABLE TO HELP HER AND THAT HIS IS AN RN. HE IS ALSO OPEN TO [facility] AND WILL DISCUSS COMPANY OPTIONS WITH HIS . S/W PATIENT ABOUT WHAT GUNNAR AND KENTRELL BOTH HAD TO OFFER. SHE WOULD LIKE TO DC HOME WITH KENTRELL AT TIME OF DC WITH [facility]. PATIENT VERY HAPPY WITH THIS SOLUTION AND AGAIN VOICED THAT UNDER NO CIRCUMSTANCE WOULD SHE GO TO REHAB. WILL SET UP [facility] ONCE KENTRELL HAS DECIDED ON COMPANY Initialized on 07/23/22 11:34 - END OF NOTE 07/22/22 17:25 (created 07/22/22 17:40) Nursing Note by Lyndsey Woodson is her rounding on patient. Initialized on 07/22/22 17:40 - END OF NOTE Code(s): J18.9 - PNEUMONIA, UNSPECIFIED ORGANISM (2) Enterocolitis Current Visit: Yes Status: Acute Code(s): K52.9 - NONINFECTIVE GASTROENTERITIS AND COLITIS, UNSPECIFIED
[2022-07-23] MEDS ORDERED: Tums EX 750 MG PO PRN (18:45)
[2022-07-23] MEDS ORDERED: Docusate Sodium 100 MG PO PRN (19:07)
[2022-07-23] MEDS: solu-MEDROL 40 MG, Sterile H2O 10 ml 1 ML IV SCH ×2 (22:44)
[2022-07-23] MEDS: ZOCOR 20MG PO SCH (22:44)
[2022-07-23] MEDS: LEVOFLOXACIN 750MG/150ML D5W 750 MG/150 ML BAG IV SCH (23:29)
[2022-07-24] MEDS: FLAGYL 500 MG IVPB 500 MG/100 ML BAG IV SCH ×3 (01:28→12:00)
--- NOTE | 2022-07-24 01:38 | XRAY ---
CLINICAL HISTORY:VQ, Pneumonia; COMPARISON:07/22/2022; TECHNIQUES:X-ray examination of the chest is performed in PA and lateral views; FINDINGS: Inhomogeneous shadowing is seen at the left upper and middle zones. Heart size appears enlarged in the PA view. Unfolding of aorta. The left diaphragm and left costophrenic angle are obscured. The right lung is clear. Right cardiophrenic and costophrenic angles are clear. 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 Moderate to severe thoracic spondylosis. IMPRESSION: Inhomogeneous shadowing is seen at left upper and middle zones suggestive of pulmonary infection/infiltration/pulmonary/ pulmonary embolism. The opacity appears to be slightly reduced in size compared with previous study dated: 07/22/2022. Possibility of left mild pleural effusion. Ultrasound confirmation is suggested. Electronically Signed by: Chad Casillas MD. ( 07/24/2022 00:33:59 TAKE OFF MAN)
[2022-07-24 05:05] LABS: Hematocrit 39.3 % (35-47); Hemoglobin 12.7 g/dL (12.0-16.0); Mean Cell Volume 88.1 fL (78-100); Mean Corpuscular Hemoglobin 28.5 pg (26-32); Mean Corpuscular Hgb Concent. 32.3 g/dL (32-36); Platelet Count 197 x10^3/uL (150-450); Red Blood Count 4.46 x10^6/uL (4.1-5.4); Red Cell Distribution Width 14.6 % (11.5-14.0); White Blood Count 9.5 x10^3/uL (4.0-10.5)
[2022-07-24 05:16] LABS: ANION GAP 12.8 MEQ/L (5-15); BILIRUBIN,TOTAL 0.9 mg/dL (0.2-1.3); Calcium 8.3 mg/dL (8.4-10.2); Creatinine 1 1.04 mg/dL (0.52-1.04); EST GLOMERULAR FILTRATION RATE 53.9 ML/MIN; Potassium 4.4 mmol/L (3.5-5.1)
[2022-07-24] MEDS ORDERED: solu-MEDROL ONE (05:46)
[2022-07-24] MEDS: solu-MEDROL 40 MG, Sterile H2O 10 ml 1 ML IV SCH ×4 (06:00→15:02)
[2022-07-24] MEDS: PIPERACILLIN/TAZOBACTAM 3.375 GM in Sodium Chloride 100ML MINI-BAG PLUS 100 ML IV SCH ×2 (06:40→15:02)
[2022-07-24] MEDS ORDERED: MUCINEX DM 600/30MG PO SCH (10:00)
[2022-07-24] MEDS: Toprol-Xl 25MG Tablets PO SCH (10:52)
[2022-07-24] MEDS: ZOLOFT 50 MG TABLET PO SCH (10:52)
[2022-07-24] MEDS: SYNTHROID 75 MCG PO SCH (10:52)
[2022-07-24] MEDS: LASIX 20 MG PO SCH (10:52)
[2022-07-24] MEDS: ELIQUIS 2.5 MG TABLET PO SCH (10:52)
[2022-07-24] MEDS: JARDIANCE PO SCH (10:53)
[2022-07-24 12:10] VITALS: BP 158/78; PULSE 61; O2SAT 97
--- NOTE | 2022-07-24 12:34 | PCM.DS ---
Discharge Summary Date of Admission: 07/21/22 17:28 Admitting Physician: SHREYAS BAEZA Consults: Consults on Case 07/20/22 18:33 Consult Surgery ROUTINE 07/21/22 12:03 Consult Pulmonology ROUTINE Primary Care Provider: JAGJIT TAVAREZ Allergies Allergies morphine Allergy (Verified 07/20/22 09:13) Hospital Summary - Hospital Course Hospital Course: Chief Complaint Diagnosis PNEUMONIA, ACUTE HYPOXIC RESPIRATORY FAILURE Allergies Allergy/AdvReac Type Severity Reaction Status Date / Time morphine Allergy Verified 07/20/22 09:13 Vital Signs (Last 24 hours) Temp Pulse Resp BP Pulse Ox 07/24/22 12:00 97.9 F 61 14 158/78 97 07/24/22 07:39 97.9 F 71 16 154/70 93 L 07/24/22 07:26 71 16 93 L 07/24/22 04:00 97.7 F 58 L 16 169/74 58 L 07/24/22 00:19 97.5 F 62 20 151/70 90 L 07/23/22 20:00 85 18 95 07/23/22 19:16 74 15 95 07/23/22 16:00 97.8 F 68 16 121/56 92 L Home Medications Medication Instructions Recorded Confirmed Last Taken Type Biotin 1 cap PO DAILY 07/20/22 07/20/22 Unknown History Dapagliflozin Propanediol [Farxiga] 1 tab PO DAILY 07/20/22 07/20/22 Unknown History Ergocalciferol (Vitamin D2) 2 cap PO WEEKLY 07/20/22 07/20/22 Unknown History [Vitamin D2] Levothyroxine Sodium 75 Mcg 1 tab PO DAILY 07/20/22 07/20/22 Unknown History [Synthroid 75 Mcg] Metoprolol Succinate 25 mg Xl* 1 tab PO DAILY 07/20/22 07/20/22 Unknown History [Toprol-Xl 25MG Tablets] Rosuvastatin Calcium 1 tab PO HS 07/20/22 07/20/22 Unknown History Cephalexin Mh 500 mg [Keflex 500 500 mg PO QID 7 Days #28 cap 07/24/22 Unknown Rx mg] Guaifenesin Dextromethorphan 1 tablet PO BID 7 Days #14 tablet 07/24/22 Unknown Rx [MUCINEX Dm 600/30MG] Methylprednisolone Packet 4 mg PO UD 6 Days #1 packet 07/24/22 Unknown Rx [Medrol Dosepack] Current Medications Generic Name Dose Route Start Last Admin Trade Name Freq PRN Reason Stop Dose Admin Acetaminophen 650 mg 07/20/22 14:11 07/23/22 14:59 Acetaminophen 325 Mg Tablet PO 08/19/22 14:10 650 mg Q4H PRN PRN Administration PAIN, FEVER, HEADACHE Albuterol/Ipratropium 3 ml 07/21/22 13:28 07/22/22 07:48 Ipratropium/Albuterol Sulfate 3 Ml Ampul.Neb IH 08/20/22 13:27 3 ml Q4HPRN PRN Administration SHORTNESS OF BREATH/WHEEZING Apixaban 5 mg 07/20/22 22:00 07/24/22 10:52 Apixaban 2.5 Mg Tablet PO 08/19/22 21:59 5 mg BID LINDSAY Administration Calcium Carbonate/Glycine 750 mg 07/23/22 18:45 07/23/22 18:46 Calcium Carbonate 750 Mg 750 Mg Tab.Chew PO 08/22/22 18:44 750 mg Q3HPRN PRN Administration INDIGESTION Methylprednisolone Sodium 0 mg 07/23/22 22:00 07/24/22 06:00 Succinate 40 mg/ Sterile Water IV 08/22/22 21:59 40 mg 1 ml Q8HT LINDSAY Administration Docusate Sodium 200 mg 07/23/22 19:07 07/24/22 04:25 Docusate Sodium 100 Mg Capsule PO 08/22/22 19:06 200 mg DAILY PRN PRN Administration CONSTIPATION Empagliflozin 10 mg 07/23/22 13:00 07/24/22 10:53 Empagliflozin 10 Mg Tablet PO 08/22/22 12:59 10 mg DAILY LINSDAY Administration Ergocalciferol 100,000 unit 07/25/22 10:00 Ergocalciferol (Vitamin D2) 50,000 Unit Capsule PO 08/24/22 09:59 WEEKLY LINDSAY Furosemide 20 mg 07/20/22 18:00 07/24/22 10:52 Furosemide 20 Mg Tablet PO 08/19/22 17:59 20 mg DAILY LINDSAY Administration Guaifenesin/Dextromethorphan 1 tablet 07/24/22 10:00 Guaifenesin Dm 600mg/30 Mg Tablet PO 08/23/22 09:59 BID LINDSAY Metronidazole 500 mg in 100 mls @ 200 mls/hr 07/20/22 18:00 07/24/22 12:00 Flagyl 500 Mg Ivpb IV 08/19/22 17:59 Not Given Q6HT LINDSAY Levofloxacin/Dextrose 750 mg in 150 mls @ 100 mls/hr 07/21/22 22:00 07/23/22 23:29 Levofloxacin 750mg/150ml D5w IV 08/20/22 21:59 100 mls/hr Q48H LINDSAY Administration Potassium Chloride/Dextrose/Sod Cl 1,000 mls @ 100 mls/hr 07/20/22 19:00 07/23/22 16:56 D5w/0.45ns W/ 20meq Kcl 1000 Ml IV 08/19/22 18:59 60 mls/hr .Q10H LINDSAY Administration Piperacillin Sod/Tazobactam 100 mls @ 200 mls/hr 07/22/22 22:00 07/24/22 06:4 0 Sod 3.375 gm/ Sodium Chloride IV 07/25/22 21:59 200 mls/hr Q8HT LINDSAY Administration Levothyroxine Sodium 75 mcg 07/20/22 18:00 07/24/22 10:52 Levothyroxine Sodium 75 Mcg Tablet PO 08/19/22 17:59 75 mcg DAILY LINDSAY Administration Metoprolol Succinate 25 mg 07/20/22 18:00 07/24/22 10:52 Metoprolol Succinate 25 Mg Xl Tab PO 08/19/22 17:59 25 mg DAILY LINDSAY Administration Ondansetron HCl 4 mg 07/20/22 14:11 Ondansetron Hcl 4 Mg/2 Ml Vial IV 08/19/22 14:10 Q6H PRN PRN NAUSEA/VOMITING Sertraline HCl 100 mg 07/20/22 18:00 07/24/22 10:52 Sertraline Hcl 50 Mg Tab PO 08/19/22 17:59 100 mg DAILY LINDSAY Administration Simvastatin 40 mg 07/20/22 22:00 07/23/22 22:44 Simvastatin 20 Mg Tablet PO 08/19/22 21:59 40 mg HS LINDSAY Administration Discontinued Medications Generic Name Dose Route Start Last Admin Trade Name Freq PRN Reason Stop Dose Admin Bumetanide 1 mg 07/21/22 17:23 07/21/22 17:41 Bumetanide 0.25 Mg/Ml 4ml Vial IV 07/21/22 17:24 1 mg STAT ONE Administration Methylprednisolone Sodium 0 mg 07/21/22 18:00 07/23/22 11:14 Succinate 60 mg/ Sterile Water IV 08/20/22 17:59 60 mg 2 ml Q6HT LINDSAY Administration Fentanyl Citrate 50 mcg 07/20/22 15:19 07/20/22 15:33 Fentanyl Citrate 100 Mcg/2 Ml* Vial IV 07/25/22 15:18 50 mcg Q6H PRN PRN Administration PAIN Fentanyl Citrate 50 mcg 07/20/22 21:10 07/21/22 03:01 Fentanyl Citrate 100 Mcg/2 Ml* Vial IV 07/25/22 21:08 50 mcg Q4H PRN PRN Administration PAIN Hydromorphone HCl 0.5 mg 07/20/22 12:49 07/20/22 12:56 Hydromorphone 1 Mg/1ml Inj IV 07/20/22 12:50 0.5 mg STAT ONE Administration Hydromorphone HCl Confirm 07/20/22 12:55 Hydromorphone 1 Mg/1ml Inj Administered 07/20/22 12:56 Dose 1 mg .ROUTE .STK-MED ONE Hydromorphone HCl 0.5 mg 07/20/22 14:11 Hydromorphone 1 Mg/1ml Inj IV 07/25/22 14:10 Q6H PRN PRN PAIN Hydromorphone HCl 1 mg 07/20/22 18:59 07/20/22 19:34 Hydromorphone 1 Mg/1ml Inj IV 07/20/22 19:00 1 mg STAT ONE Administration Hydromorphone HCl 0.5 mg 07/20/22 19:00 07/22/22 06:28 Hydromorphone 1 Mg/1ml Inj IV 07/25/22 18:59 1 mg Q2H PRN PRN Administration PAIN Hydromorphone HCl 1 mg 07/22/22 07:18 07/22/22 19:49 Hydromorphone 1 Mg/1ml Inj IV 07/27/22 07:17 1 mg Q3H PRN PRN Administration PAIN Sodium Chloride 1,000 mls @ 999 mls/hr 07/20/22 09:22 07/20/22 11:10 Sodium Chloride 0.9% 1000 Ml IV 07/20/22 10:22 Infused .Q1H1M STA Infusion Sodium Chloride Confirm 07/20/22 10:01 Sodium Chloride 0.9% 1000 Ml Administered 07/20/22 10:02 Dose 1,000 mls @ ud .ROUTE .STK-MED ONE Sodium Chloride 1,000 mls @ 999 mls/hr 07/20/22 11:27 07/20/22 12:57 Sodium Chloride 0.9% 1000 Ml IV 07/20/22 12:27 Infused .Q1H1M STA Infusion Sodium Chloride Confirm 07/20/22 11:44 Sodium Chloride 0.9% 1000 Ml Administered 07/20/22 11:45 Dose 1,000 mls @ ud .ROUTE .STK-MED ONE Levofloxacin/Dextrose 500 mg in 100 mls @ 100 mls/hr 07/20/22 12:08 07/20/22 13:08 Levofloxacin 500mg/100ml D5w IV 07/20/22 13:07 100 mls/hr STAT STA 100 mls/hr Administration Metronidazole 500 mg in 100 mls @ 200 mls/hr 07/20/22 12:08 07/20/22 12:55 Flagyl 500 Mg Ivpb IV 07/20/22 12:37 Infused STAT STA Infusion Metronidazole Confirm 07/20/22 12:16 Flagyl 500 Mg Ivpb Administered 07/20/22 12:17 Dose 500 mg in 100 mls @ ud IV .STK-MED ONE Levofloxacin/Dextrose Confirm 07/20/22 13:07 Levofloxacin 500mg/100ml D5w Administered 07/20/22 13:08 Dose 500 mg in 100 mls @ ud IV .STK-MED ONE Sodium Chloride 1,000 mls @ 50 mls/hr 07/20/22 14:11 07/20/22 17:59 Sodium Chloride 0.9% 1000 Ml IV 08/19/22 14:10 50 mls/hr .Q20H LINDSAY Administration Levofloxacin/Dextrose 500 mg in 100 mls @ 100 mls/hr 07/21/22 10:00 Levofloxacin 500mg/100ml D5w IV 08/20/22 09:59 Q24H10 LINDSAY Sodium Chloride Confirm 07/22/22 22:01 Sodium Chloride 100ml Mini-Bag Plus Administered 07/22/22 22:02 Dose 100 mls @ ud IV .STK-MED ONE Sodium Chloride Confirm 07/23/22 06:34 Sodium Chloride 100ml Mini-Bag Plus Administered 07/23/22 06:35 Dose 100 mls @ ud IV .STK-MED ONE Methylprednisolone Sodium Succinate Confirm 07/22/22 06:23 Methylprednis Sod Succ 125 Mg/2 Ml Vial Administered 07/22/22 06:24 Dose 125 mg .ROUTE .STK-MED ONE Methylprednisolone Sodium Succinate Confirm 07/22/22 18:25 Methylprednis Sod Succ 125 Mg/2 Ml Vial Administered 07/22/22 18:26 Dose 125 mg .ROUTE .STK-MED ONE Methylprednisolone Sodium Succinate Confirm 07/22/22 23:04 Methylprednis Sod Succ 125 Mg/2 Ml Vial Administered 07/22/22 23:05 Dose 125 mg .ROUTE .STK-MED ONE Methylprednisolone Sodium Succinate Confirm 07/23/22 06:23 Methylprednis Sod Succ 125 Mg/2 Ml Vial Administered 07/23/22 06:24 Dose 125 mg .ROUTE .STK-MED ONE Methylprednisolone Sodium Succinate Confirm 07/23/22 22:37 Methylprednisolone Sod Suc 40m 40 Mg/Ml Vial Administered 07/23/22 22:38 Dose 40 mg .ROUTE .STK-MED ONE Methylprednisolone Sodium Succinate Confirm 07/24/22 05:46 Methylprednisolone Sod Suc 40m 40 Mg/Ml Vial Administered 07/24/22 05:47 Dose 40 mg .ROUTE .STK-MED ONE Miscellaneous Information 1 each 07/20/22 17:30 Medication Intervention 1 Each Each MC 08/19/22 17:29 .RN TO CHECK LINDSAY Miscellaneous Information 1 each 07/20/22 17:30 Medication Intervention 1 Each Each MC 08/19/22 17:29 .RN TO CHECK LINDSAY Ondansetron HCl 4 mg 07/20/22 09:22 07/20/22 10:02 Ondansetron Hcl 4 Mg/2 Ml Vial IV 07/20/22 09:23 4 mg STAT ONE Administration Ondansetron HCl Confirm 07/20/22 10:01 Ondansetron Hcl 4 Mg/2 Ml Vial Administered 07/20/22 10:02 Dose 4 mg .ROUTE .STK-MED ONE Pantoprazole Sodium 40 mg 07/20/22 09:22 07/20/22 10:02 Pantoprazole 40 Mg Vial IV 07/20/22 09:23 40 mg STAT ONE Administration Pantoprazole Sodium Confirm 07/20/22 10:01 Pantoprazole 40 Mg Vial Administered 07/20/22 10:02 Dose 40 mg IV .STK-MED ONE Piperacillin Sod/Tazobactam Sod Confirm 07/22/22 22:00 Piperacillin/Tazobactam Sodium 3.375 Gm Vial Administered 07/22/22 22:01 Dose 3.375 gm IV .STK-MED ONE Piperacillin Sod/Tazobactam Sod Confirm 07/23/22 06:34 Piperacillin/Tazobactam Sodium 3.375 Gm Vial Administered 07/23/22 06:35 Dose 3.375 gm IV .STK-MED ONE Intake & Output (Last 24 hours) 07/22/22 07/23/22 07/24/22 07/25/22 11:59 11:59 11:59 11:59 Intake Total 2202 2308 2882 Output Total 1850 900 500 Balance 352 1408 2382 Weight 89.6 kg 89.5 kg 90.1 kg Laboratory Results (Last 24 hours) 07/24/22 07/24/22 07/24/22 11:25 07:07 04:55 WBC RBC Hgb Hct MCV MCH MCHC RDW Plt Count MPV Sodium 139 Potassium 4.4 Chloride 103 Carbon Dioxide 27 Anion Gap 12.8 BUN 41 H Creatinine 1.04 Estimated GFR 53.9 Glucose 236 H POC Glucometer 294 H 222 H Calcium 8.3 L Total Bilirubin 0.90 AST 34 ALT 30 Alkaline Phosphatase 43 Serum Total Protein 6.0 L Albumin 3.0 L 07/24/22 07/23/22 07/23/22 04:55 20:54 16:33 WBC 9.5 RBC 4.46 Hgb 12.7 Hct 39.3 MCV 88.1 MCH 28.5 MCHC 32.3 RDW 14.6 H Plt Count 197 D MPV 11.0 Sodium Potassium Chloride Carbon Dioxide Anion Gap BUN Creatinine Estimated GFR Glucose POC Glucometer 275 H 311 H Calcium Total Bilirubin AST ALT Alkaline Phosphatase Serum Total Protein Albumin Orders (Last 24 hours) Category Date Time Status Up in Chair TID Activity 07/23/22 15:00 Active Discharge Routine Discharge 07/24/22 11:00 Ordered CHEST 2 VIEWS (PA AND LAT) Routine Exams 07/24/22 07:00 Taken CBC AM.LAB Lab 07/24/22 04:55 Completed CMP AM.LAB Lab 07/24/22 04:55 Completed POCT GLUCOSE Stat Lab 07/23/22 16:33 Completed POCT GLUCOSE Stat Lab 07/23/22 20:54 Completed POCT GLUCOSE Stat Lab 07/24/22 07:07 Completed POCT GLUCOSE Stat Lab 07/24/22 11:25 Completed Calcium Carbonate 750 mg [Tums EX 750 MG] Med 07/23/22 18:45 Active 750 mg PO Q3HPRN PRN Docusate Sodium 100 mg [Docusate Sodium 100 MG] Med 07/23/22 19:07 Activ e 200 mg PO DAILY PRN PRN Empagliflozin [Jardiance] Med 07/23/22 13:00 Active 10 mg PO DAILY Ergocalciferol (Vitamin D2) [Vitamin D2] Med 07/25/22 10:00 Active 100,000 unit PO WEEKLY Guaifenesin Dextromethorphan [Mucinex Dm 600/30Mg] Med 07/24/22 10:00 Active 1 tablet PO BID Methylprednisolone Sod Suc 40M [solu-MEDROL] Med 07/23/22 22:37 Discontinued 40 mg .ROUTE .STK-MED ONE Methylprednisolone Sod Suc 40M [solu-MEDROL] Med 07/24/22 05:46 Discontinued 40 mg .ROUTE .STK-MED ONE Methylprednisolone Sod Suc 40M [solu-MEDROL] 40 mg Med 07/23/22 22:00 Active Water For Injection,Sterile [Sterile H2O 10 ml] 1 ml IV Q8HT PT Eval & Treat (MD Order) ONCE PT 07/23/22 11:34 Completed Patient Care Notes (Last 24 hours) 07/24/22 12:13 Case Management Note by Carla Kingsley REFERRAL WAS FAXED TO [facility]. THEY WILL NEED UPDATED AT TIME OF DC AT [phone]. THEY WILL NEED FAXED THE DC INSTRUCTIONS, DC MED LIST AND DC SUMMARY ( IF AVAILABLE) TO [phone] Initialized on 07/24/22 12:13 - END OF NOTE 07/24/22 12:08 Case Management Note by Carla Kingsley S/W PATIENT- SHE CONTINUES TO WISH TO DC HOME WITH KENTRELL AND HIS AT TIME OF DC. S/ PATIENT'S DAUGHTER GUNNAR- SHE HAS S/W KENTRELL AND PATIENT AND AGREES WITH THIS PLAN. S/W KENTRELL- HE CONTINUES TO PLAN FOR PATIENT TO DC HOME WITH HIM AND HIS AT TIME OF DC. THEY WERE AGREEABLE TO [facility]. REFERRAL SENT TO [facility] (THEY HAVE STAFFING AND ACCEPT INSURANCE). PATIENT HAS WALKER AT HOME THAT KENTRELL CAN GET AT DC. HOME OXYGEN HAS BEEN SET UP WITH [facility]IN. EITAN ANDERSON REP AWARE OF PATIENT STAYING IN [place]. PATIENT GIVEN APPROPRIATE PHONE NUMBER FOR DELIVERY, ALSO GIVEN TH PHONE NUMBER BACK UP. PRIMARY RN GIVEN PULSE OX TO SEND WITH PATIENT AT TIME OF DC . NO OTHER NEW NEEDS AT THIS TIME Initialized on 07/24/22 12:08 - END OF NOTE 07/24/22 10:15 Case Management Note by Carla Kingsley PATIENT NOTED TO BE 87% ON ROOM AIR AT REST, PLACED ON 3L SATS UP TO 91% Initialized on 07/24/22 10:15 - END OF NOTE - Vitals & Intake/Output Vital Signs: Vital Signs Temperature 97.9 F 07/24/22 12:00 Pulse Rate 61 07/24/22 12:00 Respiratory Rate 14 07/24/22 12:00 Blood Pressure 158/78 07/24/22 12:00 O2 Sat by Pulse Oximetry 97 07/24/22 12:00 Intake & Output: Intake & Output 07/22/22 07/23/22 07/24/22 07/25/22 11:59 11:59 11:59 11:59 Intake Total 2202 2308 2882 Output Total 1850 900 500 Balance 352 1408 2382 Weight 89.6 kg 89.5 kg 90.1 kg - Lab Result Diagrams: 07/24/22 04:55 07/24/22 04:55 Lab Results-Last 24 Hrs: Lab Results-Last 24 Hours 07/23/22 07/23/22 07/24/22 Range/Units 16:33 20:54 04:55 WBC 9.5 (4.0-10.5) x10^3/uL RBC 4.46 (4.1-5.4) x10^6/uL Hgb 12.7 (12.0-16.0) g/dL Hct 39.3 (35-47) % MCV 88.1 (78-100) fL MCH 28.5 (26-32) pg MCHC 32.3 (32-36) g/dL RDW 14.6 H (11.5-14.0) % Plt Count 197 D (150-450) x10^3/uL MPV 11.0 (7.5-11.0) fL Sodium (137-145) mmol/L Potassium (3.5-5.1) mmol/L Chloride (98-107) mmol/L Carbon Dioxide (22-30) mmol/L Anion Gap (5-15) MEQ/L BUN (7-17) mg/dL Creatinine (0.52-1.04) mg/dL Estimated GFR ML/MIN Glucose (74-106) mg/dL POC Glucometer 311 H 275 H (74 to 106) mg/dL Calcium (8.4-10.2) mg/dL Total Bilirubin (0.2-1.3) mg/dL AST (14-36) U/L ALT (0-35) U/L Alkaline Phosphatase (38-126) U/L Serum Total Protein (6.3-8.2) g/dL Albumin (3.5-5.0) g/dL 07/24/22 07/24/22 07/24/22 Range/Units 04:55 07:07 11:25 WBC (4.0-10.5) x10^3/uL RBC (4.1-5.4) x10^6/uL Hgb (12.0-16.0) g/dL Hct (35-47) % MCV (78-100) fL MCH (26-32) pg MCHC (32-36) g/dL RDW (11.5-14.0) % Plt Count (150-450) x10^3/uL MPV (7.5-11.0) fL Sodium 139 (137-145) mmol/L Potassium 4.4 (3.5-5.1) mmol/L Chloride 103 (98-107) mmol/L Carbon Dioxide 27 (22-30) mmol/L Anion Gap 12.8 (5-15) MEQ/L BUN 41 H (7-17) mg/dL Creatinine 1.04 (0.52-1.04) mg/dL Estimated GFR 53.9 ML/MIN Glucose 236 H (74-106) mg/dL POC Glucometer 222 H 294 H (74 to 106) mg/dL Calcium 8.3 L (8.4-10.2) mg/dL Total Bilirubin 0.90 (0.2-1.3) mg/dL AST 34 (14-36) U/L ALT 30 (0-35) U/L Alkaline Phosphatase 43 (38-126) U/L Serum Total Protein 6.0 L (6.3-8.2) g/dL Albumin 3.0 L (3.5-5.0) g/dL Micro Results-Entire Visit: Microbiology 07/20/22 10:25 Urine Culture - Final Urine, Void NO GROWTH 07/20/22 10:15 Blood Culture - Preliminary Blood NO GROWTH TO DATE 07/20/22 09:38 Blood Culture - Preliminary Blood NO GROWTH TO DATE Accuchecks Date 07/23/22 Date 07/23/22 Time 16:45 Time 16:45 - Radiology Exams Ordered Rad Exams-Entire Visit: Radiology Procedures Category Date Time Status CHEST 2 VIEWS (PA AND LAT) Routine Exams 07/24/22 07:00 Taken CHEST 2 VIEWS (PA AND LAT) Urgent Exams 07/23/22 07:06 Completed PULMONARY PERF VENTILATION [NUCMED] Urgent Exams 07/23/22 10:00 Completed - Procedures and Test Procedures and Tests throughout Hospitalization: Therapy Orders & Screens 07/20/22 14:11 Oxygen Nasal Cannula 2 lpm Comment: Respiratory Therapy Consult ROUTINE Comment: Reason For Exam: 07/21/22 13:30 Respiratory Therapy Assessment DAILY Comment: Diagnosis: left upper quadrant abdominal pain for 1-2 days 07/23/22 11:34 PT Eval & Treat (MD Order) ONCE Reason for Eval:: WEAKNESS Diagnosis: PNEUMONIA, ACUTE HYPOXIC RESPIRATORY FAILURE Discharge Exam General Appearance: no apparent distress, alert Neurologic Exam: alert, oriented x 3, cooperative, normal mood/affect, nml cerebellar function, sensation nml, No motor deficits Eye Exam: PERRL, EOMI, eyes nml inspection Ears, Nose, Throat Exam: normal ENT inspection, pharynx normal, moist mucous membranes Neck Exam: normal inspection, non-tender, supple, full range of motion Respiratory Exam: normal breath sounds, lungs clear, No respiratory distress Cardiovascular Exam: regular rate/rhythm, normal heart sounds Gastrointestinal/Abdomen Exam: soft, No tenderness, No mass Pelvic Exam: deferred Rectal Exam: deferred Back Exam: normal inspection, normal range of motion, No CVA tenderness, No vertebral tenderness Extremity Exam: normal inspection, normal range of motion Skin Exam: normal color, warm, dry Final Diagnosis/Problem List - Final Discharge Diagnosis/Problem (1) Left upper lobe pneumonia Current Visit: Yes Status: Acute Assessment & Plan: improved Code(s): J18.9 - PNEUMONIA, UNSPECIFIED ORGANISM (2) Enterocolitis Current Visit: Yes Status: Resolved Code(s): K52.9 - NONINFECTIVE GASTROENTERITIS AND COLITIS, UNSPECIFIED - Discharge Discharge Date: 07/24/22 Disposition: Home, Self-Care Condition: Stable Prescriptions: New Cephalexin Mh 500 mg [Keflex 500 mg] 500 mg PO QID 7 Days #28 cap Methylprednisolone Packet [Medrol Dosepack] 4 mg PO UD 6 Days #1 packet Guaifenesin Dextromethorphan [MUCINEX Dm 600/30MG] 1 tablet PO BID 7 Days #14 tablet No Action Furosemide [Lasix] 1 ea PO DAILY Sertraline HCl [Zoloft] 1 ea DAILY Apixaban [Eliquis 5 mg Tablet] 1 ea PO BID Metoprolol Succinate 25 mg Xl* [Toprol-Xl 25MG Tablets] 1 tab PO DAILY Biotin 1 cap PO DAILY Levothyroxine Sodium 75 Mcg [Synthroid 75 Mcg] 1 tab PO DAILY Dapagliflozin Propanediol [Farxiga] 1 tab PO DAILY Ergocalciferol (Vitamin D2) [Vitamin D2] 2 cap PO WEEKLY Rosuvastatin Calcium 1 tab PO HS Instructions: Pneumonia, Adult (DC) Additional Instructions: WEAR 3L/NC AT ALL TIMES CALL JUSTIN AT [phone] WHEN YOU GET READY TO HEAD TO [place] SO JUSTIN CAN MEET YOU AT [facility] TO DELIVER YOUR CONCENTRATOR. IF YOU HAVE ANY TROUBLES- YOU CAN REACH OUT TO ROSALINE ANDERSON AT [phone] REFERRAL FOR [facility] WAS SENT TO [facility]. THEY WILL CONTACT YOU TO ARRANGE A VISIT. THEIR PHONE NUMBER IS [phone]. YOU CAN REACH OUT TO THEM IF YOU HAVE ANY TROUBLE BEFORE THEY MAKE CONTACT Follow up with: JAGJIT TAVAREZ [Primary Care Provider] - 7 Days
--- NOTE | 2022-07-24 16:25 | XRAY ---
CLINICAL HISTORY:pne; COMPARISON:Chest x-ray dated 07/23/2022; TECHNIQUES:X-ray chest 2 viewsPA and lateral views; FINDINGS: Inhomogeneous opacity is seen in the Left Upper and mid lung zones. There is blunting of the left costophrenic angle. The images and rotation. Right shoulder arthritic changes are seen. Cardiac silhouette appears enlarged. Thoracic spondylosis resulting in mild exaggerated thoracic kyphosis. The right lung is clear. IMPRESSION: Inhomogeneous opacity in the left upper and midlung zones, which appears to be slightly reduced in its craniocaudal extent in comparison with prior x-ray dated 07/23/2022. This opacity could present a patch of infective consolidation, Pulmonary infarct or neoplastic mass. Further correlation with a CT of the chest is advised. Mild interval reduction of the blunting of the costophrenic angle. Electronically Signed by: Chad Casillas MD. (07/24/2022 15:15:40 MASTER CERTIFIED RV TECHNICIAN)
[2022-07-25] MEDS ORDERED: VITAMIN D2 PO SCH (10:00)
--- NOTE | 2022-07-27 08:59 | PROG NOTE ---
CONSULT DATE: 07/24/2022 HISTORY: She was admitted for pneumonia with some consolidation and small pleural effusion. Upon evaluation the patient is lying in bed with 3 liters of O2. She was much improved in her overall condition, with resolution of shortness of breath and wheezing. PHYSICAL EXAMINATION: HEENT: Awake, alert, oriented. CVS: Regular rate and rhythm. RESPIRATORY: 3 liters of O2, diminished breath sounds. ABDOMEN: Soft. : Urination within normal limits. SKIN: Warm, dry and intact. NEUROLOGIC: Alert and oriented. ASSESSMENT: 1) Pneumonia. 2) Acute respiratory failure. 3) Dehydration. PLAN OF CARE: The patient is stable from pulmonary standpoint. She will be discharged home with a two week follow up. She will require home oxygen evaluation. Hospitalist should continue oral antibiotics and steroids upon discharge. As dictated by BARBRA Lyles.
== END 2022-07-24 16:20 | disposition home health service (06) | DRG 193 ==
LOC: ED 08:55 → MED SURG 14:10 → OBSVTOIN 07-21 17:28
PROVIDERS: ADMIT General Practice; ATTEND General Practice
DX: J18.9 Pneumonia, unspecified organism (principal); J96.01 Acute respiratory failure with hypoxia; K52.9 Noninfective gastroenteritis and colitis, unspecified; I25.10 Atherosclerotic heart disease of native coronary artery without angina pectoris; E11.9 Type 2 diabetes mellitus without complications; I10 Essential (primary) hypertension; E03.9 Hypothyroidism, unspecified; E86.0 Dehydration; R41.82 Altered mental status, unspecified; Z79.01 Long term (current) use of anticoagulants; Z79.899 Other long term (current) drug therapy; Z20.828 Contact with and (suspected) exposure to other viral communicable diseases
CPT/HCPCS: 0241U; 36415; 71045; 71046; 71250; 74176; 78582; 80048; 80053; 81001; 82150; 82947; 83036; 83690; 83880; 84484; 85025; 85027; 85379; 87040; 87086; 93268; 94640; 94760; 94762; 96360; 96365; 96367; 96374; 96375; 97161; 97530; 99285; A9540; A9567; G0378; J1170; J1956; J2405; J2920; J2930; J3010; A9270-GY

== ENCOUNTER 2023-01-14 21:20 | Emergency (ER) | payer MEDICARE ==
[2023-01-14 21:25] VITALS: TEMP 96.3
--- NOTE | 2023-01-14 22:06 | ERPHSYRPT ---
- History of Present Illness Source: patient, EMS Exam Limitations: no limitations Patient Subjective Stated Complaint: EMS was called and pt's BS was 43 Triage Nursing Assessment: Pt brought in by EMS due to BS of 43 at home. Pt arrived, alert and oriented x4, pleasant and cooperative. Pt received 24ml of D50 IV en route by EMS. Pt's BS was 182 by EMS upon their arrival. Pt states, "I feel just fine now, I'm ready to go home". Physician History: Patient is a 82-year-old type II diabetic who had a hypoglycemic episode at home this p.m. EMS was called and when they arrived glucose was in the 40s. IV access was started and and D50 given to the patient. Patient sensorium to return to normal after the D50. Patient is alert and oriented x3 at this time without any focal weakness. Patient states that she wants to go home at this ti me. She denies any chest pain, dyspnea, nausea, vomiting, abdominal pain, fever, dysuria, hematuria, and focal weakness. Patient has not had any change to her diabetes medication and takes glipizide p.o. twice daily. Timing/Duration: resolved prior to arrival Severity: moderate Modifying Factors: Improves With: other (Better w D50) Associated Symptoms: denies symptoms Allergies/Adverse Reactions: morphine Allergy (Verified 01/14/23 21:35) Home Medications: Furosemide [Lasix] 1 ea PO DAILY 12/10/21 [History] Sertraline HCl [Zoloft] 1 ea PO DAILY 12/10/21 [History] Apixaban [Eliquis 5 mg Tablet] 1 ea PO BID 01/18/22 [History] Ergocalciferol (Vitamin D2) [Vitamin D2] 2 cap PO WEEKLY 07/20/22 [History] Levothyroxine Sodium 75 Mcg [Synthroid 75 Mcg] 1 tab PO DAILY 07/20/22 [History] Metoprolol Succinate 25 mg Xl* [Toprol-Xl 25MG Tablets] 1 tab PO HS 07/20/22 [History] Rosuvastatin Calcium 1 tab PO HS 07/20/22 [History] Glimepiride 2 mg [Amaryl 2 MG] 1 tab PO BID 01/14/23 [History] Oxybutynin Chloride [Oxybutynin Chloride ER] 10 mg PO DAILY 01/14/23 [History] Hx Tetanus, Diphtheria Vaccination/Date Given: No Hx Influenza Vaccination/Date Given: Yes Hx Pneumococcal Vaccination/Date Given: Yes Immunizations Up to Date: No Travel Risk - International Travel Have you traveled outside of the country in past 3 weeks: No - Coronavirus Screening Are you exhibiting any of the following symptoms?: No Close contact with a COVID-19 positive Pt in past 14-21 Days: No - Vaccine Status Have you recieved a Covid-19 vaccination: Yes Enterprise [employer]: Moderna - Vaccination Dates Date of 2cond Vaccination (if applicable): 2020 - Review of Systems All Other Systems: Reviewed and Negative - Past Medical History Pertinent Past Medical History: Yes Neurological History: No Pertinent History ENT History: No Pertinent History Cardiac History: Coronary Artery Disease, Hypertension, Myocardial Infarction ([place]), Other Respiratory History: No Pertinent History Endocrine Medical History: Diabetes Type II Musculoskeletal History: Degenerative Disk Disease, Osteoarthritis GI Medical History: Gallbladder Disease Other Medical History: patient intermittent confusion, history pulled from medical record - Past Surgical History Past Surgical History: Yes Neuro Surgical History: No Pertinent History Cardiac: Cardiac Catheterization, Cardiac Stent Gastrointestinal: Cholecystectomy Musculoskeletal: Orthopedic Surgery Female Surgical History: Hysterectomy Other Surgical History: RIGHT KNEE - Social History Smoking Status: Former smoker Exposure to second hand smoke: Yes Drug Use: none Patient Lives Alone: Yes - Nursing Vital Signs Nursing Vital Signs: Initial Vital Signs Temperature 96.3 F 01/14/23 21:24 Pulse Rate 57 L 01/14/23 21:24 Respiratory Rate 18 01/14/23 21:24 Blood Pressure 117/62 01/14/23 21:24 O2 Sat by Pulse Oximetry 96 01/14/23 21:24 Pain Scale Pain Intensity 0 Mildly bradycardic - Physical Exam General Appearance: no apparent distress Eye Exam: PERRL/EOMI, eyes nml inspection Ears, Nose, Throat Exam: normal ENT inspection, TMs normal, pharynx normal, moist mucous membranes Neck Exam: normal inspection, non-tender, supple, full range of motion, No meningismus, No mass, No Brudzinski, No Kernig's, No carotid bruit Respiratory Exam: normal breath sounds, lungs clear, airway intact, No respiratory distress Cardiovascular Exam: bradycardia, capillary refill <2 sec, No murmur Gastrointestinal/Abdomen Exam: soft, normal bowel sounds, No tenderness Back Exam: normal inspection, normal range of motion, No CVA tenderness, No vertebral tenderness Extremity Exam: normal inspection, normal range of motion Neurologic Exam: alert, oriented x 3, cooperative, customer service agent II-XII nml as tested, nor mal mood/affect, nml cerebellar function, sensation nml, No motor deficits, No sensory deficit Skin Exam: normal color, warm, dry, No rash Lymphatic Exam: No adenopathy SpO2 Interpretation: normal SpO2: 96 O2 Delivery: Room Air - Course Nursing assessment & vital signs reviewed: Yes EKG Interpreted by Me: RATE (Sinus mahad/Rate 50/Prolonged QT/Poor Rwave progression/LAFB/No acute ST changes) Ordered Tests: Active Orders 24 hr Category Date Time Status EKG-ER Only STAT Care 01/14/23 22:00 Completed IV Insertion STAT Care 01/14/23 22:18 Completed POCT Glucose Check STAT Care 01/14/23 21:39 Completed CBC W DIFF Stat Lab 01/14/23 22:20 Completed CMP Stat Lab 01/14/23 22:20 Completed CULTURE,URINE Stat Lab 01/14/23 22:18 Received POCT GLUCOSE Stat Lab 01/14/23 21:36 Completed POCT GLUCOSE Stat Lab 01/14/23 23:24 Completed POCT GLUCOSE Stat Lab 01/14/23 23:55 Completed TROPONIN Q4H Lab 01/14/23 22:20 Completed UA W/RFX UR CULTURE Stat Lab 01/14/23 22:18 Completed Lab/Rad Data: Laboratory Result Diagrams 01/14/23 22:20 01/14/23 22:20 Laboratory Results 01/14/23 01/14/23 01/14/23 Range/Units 23:55 23:24 22:20 WBC (4.0-10.5) x10^3/uL RBC (4.1-5.4) x10^6/uL Hgb (12.0-16.0) g/dL Hct (35-47) % MCV (78-100) fL MCH (26-32) pg MCHC (32-36) g/dL RDW (11.5-14.0) % Plt Count (150-450) x10^3/uL MPV (7.5-11.0) fL Gran % (36.0-66.0) % Immature Gran % (Auto) (0.00-0.4) % Nucleat RBC Rel Count (0.00-0.1) % Eos # (Auto) (0-0.5) x10^3/uL Immature Gran # (Auto) (0.00-0.03) x10^3u/L Absolute Lymphs (auto) (1.0-4.6) x10^3/uL Absolute Monos (auto) (0.0-1.3) x10^3/uL Absolute Nucleated RBC (0.00-0.01) x10^3u/L Lymphocytes % (24.0-44.0) % Monocytes % (0.0-12.0) % Eosinophils % (0.00-5.0) % Basophils % (0.0-0.4) % Absolute Granulocytes (1.4-6.9) x10^3/uL Basophils # (0-0.4) x10^3/uL Sodium 140 (137-145) mmol/L Potassium 3.9 (3.5-5.1) mmol/L Chloride 107 (98-107) mmol/L Carbon Dioxide 30 (22-30) mmol/L Anion Gap 7.6 (5-15) MEQ/L BUN 23 H (7-17) mg/dL Creatinine 1.28 H (0.52-1.04) mg/dL Estimated GFR 42.3 ML/MIN Glucose 48 L* (74-106) mg/dL POC Glucometer 104 93 (74 to 106) mg/dL Calcium 8.9 (8.4-10.2) mg/dL Total Bilirubin 0.70 (0.2-1.3) mg/dL AST 89 H (14-36) U/L ALT 72 H (0-35) U/L Alkaline Phosphatase 50 (38-126) U/L Troponin I < 0.012 (0.000-0.034) ng/mL Serum Total Protein 7.2 (6.3-8.2) g/dL Albumin 4.2 (3.5-5.0) g/dL Urine Color (Yellow) Urine Appearance (Clear) Urine pH (4.6-8.0) Ur Specific [place] (1.005-1.030) Urine Protein (Negative) Urine Glucose (UA) (Negative) mg/dL Urine Ketones (Negative) Urine Blood (Negative) Urine Nitrite (Negative) Urine Bilirubin (Negative) Urine Urobilinogen (0.2) mg/dL Ur Leukocyte Esterase (Negative) U Hyaline Cast (Auto) (0-2) /LPF Urine Microscopic RBC (0-5) /HPF Urine Microscopic WBC (0-5) /HPF Ur Epithelial Cells (None Seen) /HPF Urine Bacteria (None Seen) /HPF Urine Culture Reflexed (NO) 01/14/23 01/14/23 01/14/23 Range/Units 22:20 22:18 21:36 WBC 7.9 (4.0-10.5) x10^3/uL RBC 4.62 (4.1-5.4) x10^6/uL Hgb 12.9 (12.0-16.0) g/dL Hct 41.7 (35-47) % MCV 90.3 (78-100) fL MCH 27.9 (26-32) pg MCHC 30.9 L (32-36) g/dL RDW 15.7 H (11.5-14.0) % Plt Count 130 L (150-450) x10^3/uL MPV 11.3 H (7.5-11.0) fL Gran % 51.5 (36.0-66.0) % Immature Gran % (Auto) 0.4 (0.00-0.4) % Nucleat RBC Rel Count 0.0 (0.00-0.1) % Eos # (Auto) 0.27 (0-0.5) x10^3/uL Immature Gran # (Auto) 0.03 (0.00-0.03) x10^3u/L Absolute Lymphs (auto) 2.92 (1.0-4.6) x10^3/uL Absolute Monos (auto) 0.58 (0.0-1.3) x10^3/uL Absolute Nucleated RBC 0.00 (0.00-0.01) x10^3u/L Lymphocytes % 36.8 (24.0-44.0) % Monocytes % 7.3 (0.0-12.0) % Eosinophils % 3.4 (0.00-5.0) % Basophils % 0.6 (0.0-0.4) % Absolute Granulocytes 4.09 (1.4-6.9) x10^3/uL Basophils # 0.05 (0-0.4) x10^3/uL Sodium (137-145) mmol/L Potassium (3.5-5.1) mmol/L Chloride (98-107) mmol/L Carbon Dioxide (22-30) mmol/L Anion Gap (5-15) MEQ/L BUN (7-17) mg/dL Creatinine (0.52-1.04) mg/dL Estimated GFR ML/MIN Glucose (74-106) mg/dL POC Glucometer 96 (74 to 106) mg/dL Calcium (8.4-10.2) mg/dL Total Bilirubin (0.2-1.3) mg/dL AST (14-36) U/L ALT (0-35) U/L Alkaline Phosphatase (38-126) U/L Troponin I (0.000-0.034) ng/mL Serum Total Protein (6.3-8.2) g/dL Albumin (3.5-5.0) g/dL Urine Color Yellow (Yellow) Urine Appearance Clear (Clear) Urine pH 7.5 (4.6-8.0) Ur Specific [place] 1.020 (1.005-1.030) Urine Protein Trace A (Negative) Urine Glucose (UA) 100 A (Negative) mg/dL Urine Ketones Negative (Negative) Urine Blood Negative (Negative) Urine Nitrite Negative (Negative) Urine Bilirubin Negative (Negative) Urine Urobilinogen 1.0 A (0.2) mg/dL Ur Leukocyte Esterase Small A (Negative) U Hyaline Cast (Auto) NONE SEEN (0-2) /LPF Urine Microscopic RBC 0-2 (0-5) /HPF Urine Microscopic WBC 6-10 A (0-5) /HPF Ur Epithelial Cells None Seen (None Seen) /HPF Urine Bacteria None Seen (None Seen) /HPF Urine Culture Reflexed YES (NO) - Progress Progress Note: 01/15/23 00:53 Nursing note and vital signs reviewed. No food or housing insecurity is noted. Additional history per EMS crew. Patient arrived alert and oriented x3 and in no apparent distress without any focal weakness. Patient given D50 per EMS crew but dropped her her blood glucose slightly upon ER arrival and was fed. Her glucose remained in acceptable level throughout the rest of her stay after she ate on serial Accu-Cheks. Serial neuro exams are also normal without any focal weakness observed in the ER. Patient was able to maintain an adequate glucose level with p.o. intake during her stay without any further evidence of sulfonylurea induced hypoglycemia. Patient advised to withhold or climb glimepiride until Wednesday morning and to monitor her blood glucose closely. Patient also advised to follow-up with her family doctor tomorrow or Wednesday. Patient without any evidence of sepsis or infectious etiology during her ER stay. She was also started on Macrobid 100 mg p.o. twice daily x5 days for mild urinary tract infection. 01/15/23 00:58 Medical Desision Making - Independent Historian Additional History obtained from: EMS - Diagnostic Testing Diagnostic test were ordered, analyzed, and reviewed by me: Yes - Risk of complications The pt has a mod risk of morbidity or mortality based on: Need for prescription drug management - Departure Departure Disposition: Home Clinical Impression: Hypoglycemia, UTI (urinary tract infection) Condition: Stable Critical Care Time: No Referrals: JAGJIT TAVAREZ [Primary Care Provider] - Follow up/PCP as directed Instructions: Urinary Tract Infection, Adult (DC), Low Blood Sugar, Adult (DC) Additional Instructions: Hold your glimepiride until Wednesday morning place Watch her glucose closely please Follow-up with your family MD tomorrow or Wednesday please Return to ER for persistent low blood glucose levels less than 60 or temperature greater than 100.5 Start Macrobid twice a day for 5 days Prescriptions: Nitrofurantoin Macro 100 mg [Macrobid 100MG Capsule] 100 mg PO BID 5 Days #10 cap
[2023-01-14 22:34] LABS: Absolute Neutrophil Ct (ANC) 4.09 x10^3/uL (1.4-6.9); BASOPHIL % 0.6 % (0.0-0.4); Basophil (Absolute #) 0.05 x10^3/uL (0-0.4); Eosinophil % 3.4 % (0.00-5.0); Eosinophil (Absolute #) 0.27 x10^3/uL (0-0.5); Hematocrit 41.7 % (35-47); Hemoglobin 12.9 g/dL (12.0-16.0); IMMATURE GRAN # 0.03 x10^3u/L (0.00-0.03); IMMATURE GRAN % 0.4 % (0.00-0.4); Lymphocyte (Absolute #) 2.92 x10^3/uL (1.0-4.6); Lymphocytes % 36.8 % (24.0-44.0); Mean Cell Volume 90.3 fL (78-100); Mean Corpuscular Hemoglobin 27.9 pg (26-32); Mean Corpuscular Hgb Concent. 30.9 g/dL (32-36); Mean Platelet Volume 11.3 fL (7.5-11.0); Monocyte (Absolute #) 0.58 x10^3/uL (0.0-1.3); Monocytes % 7.3 % (0.0-12.0); Neutrophil % 51.5 % (36.0-66.0); Platelet Count 130 x10^3/uL (150-450); Red Blood Count 4.62 x10^6/uL (4.1-5.4); Red Cell Distribution Width 15.7 % (11.5-14.0); White Blood Count 7.9 x10^3/uL (4.0-10.5)
[2023-01-14 22:39] LABS: Appearance Clear (Clear); Bacteria None Seen /HPF (None Seen); Bilirubin Negative (Negative); Blood Negative (Negative); Epithelial Cells None Seen /HPF (None Seen); Glucose, Urine 100 mg/dL (Negative); Hyaline Casts NONE SEEN /LPF (0-2); Ketones Negative (Negative); Leukocyte Esterase Small (Negative); Nitrite Negative (Negative); Ph 7.5 (4.6-8.0); Protein,Urine Dip Trace (Negative); RBC 0-2 /HPF (0-5)
[2023-01-14 22:56] LABS: ADD URINE CULTURE? YES (NO)
[2023-01-14 23:09] LABS: ALBUMIN 4.2 g/dL (3.5-5.0); ALKALINE PHOSPHATASE 50 U/L (38-126); ANION GAP 7.6 MEQ/L (5-15); BLOOD UREA NITROGEN 23 mg/dL (7-17); CHLORIDE 107 mmol/L (98-107); Calcium 8.9 mg/dL (8.4-10.2); Carbon Dioxide 30 mmol/L (22-30); Creatinine 1 1.28 mg/dL (0.52-1.04); EST GLOMERULAR FILTRATION RATE 42.3 ML/MIN; Potassium 3.9 mmol/L (3.5-5.1); SGOT/AST 89 U/L (14-36); SGPT/ALT 72 U/L (0-35); SODIUM 140 mmol/L (137-145); TROPONIN < 0.012 ng/mL (0.000-0.034); Total Protein 7.2 g/dL (6.3-8.2)
[2023-01-14 23:22] LABS: Glucose 48 mg/dL (74-106)
[2023-01-14 23:28] VITALS: O2SAT 96
[2023-01-15 00:01] VITALS: BP 110/70; PULSE 64; RESP 17
== END 2023-01-15 00:06 | disposition home or self-care (01) ==
LOC: ED 21:20
DX: E11.649 Type 2 diabetes mellitus with hypoglycemia without coma (principal); N39.0 Urinary tract infection, site not specified; I10 Essential (primary) hypertension; Z79.84 Long term (current) use of oral hypoglycemic drugs; Z79.01 Long term (current) use of anticoagulants; Z79.899 Other long term (current) drug therapy
CPT/HCPCS: 36000; 36415; 80053; 81001; 82947; 84484; 85025; 87086; 93005; 99283

== ENCOUNTER 2023-09-21 11:56 | Observation (INO) | payer MEDICARE ==
[2023-09-21] MEDS ORDERED: TYLENOL 325 MG ONE (13:11)
[2023-09-21] MEDS: TYLENOL 325 MG PO ONE (13:12)
--- NOTE | 2023-09-21 13:20 | XRAY ---
Indication: Pain following fall. Comparison: None 3 view right knee demonstrates osteopenia, total knee arthroplasty with intact prosthesis/articulation, mild scattered vascular calcifications, and anterior soft tissue swelling. No other bony, articular, or soft tissue abnormalities.
--- NOTE | 2023-09-21 13:22 | XRAY ---
Indication: Trauma. Multiple contiguous axial images obtained through the head without contrast. Comparison: None Age-appropriate global atrophy. External capsuled demonstrates remote lacunar infarcts bilaterally. No acute intracranial hemorrhage, abnormal extra-axial fluid collection, or mass effect. Fourth ventricle is midline without hydrocephalus. Sen-white matter differentiation preserved. Bony calvarium intact. Visualized paranasal sinuses and mastoid air cells are clear. Impression: Remote lacunar infarcts external capsule bilaterally. No acute intracranial abnormalities.
--- NOTE | 2023-09-21 13:38 | ERPHSYRPT ---
- History of Present Illness Time Seen by Provider: 09/21/23 12:40 Source: patient Exam Limitations: no limitations Patient Subjective Stated Complaint: PT HERE FOR A FALL TODAY, SHE STATES SHE TRIPPED ON A RUG. CO PAIN TO RIGHT KNEE AND RIGHT SIDE OF HEAD Triage Nursing Assessment: PT ALERT,ARRIVED PER WC, RESP EASY, SKIN W/D/P. HAS SWELLING AND BRUISING TO RIGHT KNEE, AND ABRASION TO RIGHT SIDE OF HEAD. . Physician History: 83-year-old female presents to our ED for evaluation status post fall. Patient complains of pain to her right knee as well as abrasion to her right face. Patient is on Eliquis. No headache. No neck pain. Cervical spine cleared clinically. Patient's fall was mechanical as she tripped on a carpet. No associated neuro cardiovascular symptomology. No chest pain or shortness of breath. No nausea vomiting or diaphoresis. No numbness tingling or weakness. Pain to right knee is localized. Pain worse with movement and palpation. Patient advises that she has a right knee arthroplasty. She voices no other complaints or concerns at this time. Patient requesting oxycodone for pain control Portions of this note were created with voice recognition technology. There may be grammatical, spelling, punctuation or sound alike errors Timing/Duration: today Severity: moderate Associated Symptoms: denies symptoms, vomiting Allergies/Adverse Reactions: morphine Allergy (Verified 09/21/23 12:06) Home Medications: Furosemide [Lasix] 1 ea PO DAILY 12/10/21 [History] Sertraline HCl [Zoloft] 1 ea PO DAILY 12/10/21 [History] Apixaban [Eliquis 5 mg Tablet] 1 ea PO BID 01/18/22 [History] Ergocalciferol (Vitamin D2) [Vitamin D2] 2 cap PO WEEKLY 07/20/22 [History] Levothyroxine Sodium 75 Mcg [Synthroid 75 Mcg] 1 tab PO DAILY 07/20/22 [History] Metoprolol Succinate 25 mg Xl* [Toprol-Xl 25MG Tablets] 1 tab PO HS 07/20/22 [History] Rosuvastatin Calcium 1 tab PO HS 07/20/22 [History] Glimepiride 2 mg [Amaryl 2 MG] 1 tab PO BID 01/14/23 [History] Oxybutynin Chloride [Oxybutynin Chloride ER] 10 mg PO DAILY 01/14/23 [History] Hx Tetanus, Diphtheria Vaccination/Date Given: No Hx Influenza Vaccination/Date Given: Yes Hx Pneumococcal Vaccination/Date Given: Yes Immunizations Up to Date: Yes Travel Risk - International Travel Have you traveled outside of the country in past 3 weeks: No - Emerging Infectious Disease Are you exhibiting symptoms associated with any current EIDs: No - Review of Systems Constitutional: No Symptoms, No Fever, No Chills Eyes: No Symptoms Ears, Nose, & Throat: No Symptoms Respiratory: No Symptoms, No Cough, No Dyspnea Cardiac: No Symptoms, No Chest Pain, No Edema, No Syncope Abdominal/Gastrointestinal: No Symptoms, No Abdominal Pain, No Nausea, No Vomiting, No Diarrhea Genitourinary Symptoms: No Symptoms, No Dysuria Musculoskeletal: No Symptoms, No Back Pain, No Neck Pain Skin: No Symptoms, No Rash Neurological: No Symptoms, No Dizziness, No Focal Weakness, No Sensory Changes Psychological: No Symptoms Endocrine: No Symptoms Hematologic/Lymphatic: No Symptoms Immunological/Allergic: No Symptoms All Other Systems: Reviewed and Negative - Past Medical History Pertinent Past Medical History: Yes Neurological History: No Pertinent History ENT History: No Pertinent History Cardiac History: Coronary Artery Disease, Hypertension, Myocardial Infarction ([place]), Other Respiratory History: No Pertinent History Endocrine Medical History: Diabetes Type II Musculoskeletal History: Degenerative Disk Disease, Osteoarthritis GI Medical History: Gallbladder Disease Other Medical History: patient intermittent confusion, history pulled from medical record - Past Surgical History Past Surgical History: Yes Neuro Surgical History: No Pertinent History Cardiac: Cardiac Catheterization, Cardiac Stent Gastrointestinal: Cholecystectomy Musculoskeletal: Orthopedic Surgery Female Surgical History: Hysterectomy Other Surgical History: RIGHT KNEE - Social History Smoking Status: Former smoker Exposure to second hand smoke: No Drug Use: none Patient Lives Alone: Yes - Social Determinants of Health Will the patient participate in the screening: Declined to provide - Nursing Vital Signs Nursing Vital Signs: Initial Vital Signs Blood Pressure 172/71 09/21/23 12:30 O2 Sat by Pulse Oximetry 97 09/21/23 12:30 Pain Scale Pain Intensity 4 - Physical Exam General Appearance: no apparent distress, alert Eye Exam: PERRL/EOMI, eyes nml inspection Ears, Nose, Throat Exam: normal ENT inspection, TMs normal, pharynx normal, moist mucous membranes Neck Exam: normal inspection, non-tender, supple, full range of motion Respiratory Exam: normal breath sounds, lungs clear, airway intact, No respiratory distress Cardiovascular Exam: regular rate/rhythm, normal heart sounds, normal peripheral pulses Gastrointestinal/Abdomen Exam: soft, normal bowel sounds, No tenderness, No mass Back Exam: normal inspection, normal range of motion, No CVA tenderness, No vertebral tenderness Extremity Exam: normal inspection, normal range of motion, pelvis stable Neurologic Exam: alert, oriented x 3, cooperative, normal mood/affect, sensation nml, No motor deficits Skin Exam: normal color, warm, dry, No rash Lymphatic Exam: No adenopathy SpO2 Interpretation: normal SpO2: 98 O2 Delivery: Room Air - Course Nursing assessment & vital signs reviewed: Yes - Radiology Exams Knee X-ray Interpretation: Teleradiologist Report (Osteopenia, vascular calcifications and swelling. No fractures or dislocations remote lacunar infarcts external capsule bilaterally) - CT Exams Head CT Interpretation: Tele-radiologist Report (No acute intracranial pathology) Ordered Tests: Active Orders 24 hr Category Date Time Status HEAD WITHOUT CONTRAST [CT] Stat Exams 09/21/23 12:39 Completed KNEE (3 VIEWS) Stat Exams 09/21/23 12:40 Completed Transfer Order Routine Transfer 09/21/23 Ordered Medication Summary Discontinued Medications Generic Name Dose Route Start Last Admin Trade Name Manny PRN Reason Stop Dose Admin Acetaminophen 975 mg 09/21/23 12:44 09/21/23 13:21 Acetaminophen 325 Mg Tablet PO 09/21/23 12:45 Not Given STAT ONE Acetaminophen Confirm 09/21/23 13:11 Acetaminophen 325 Mg Tablet Administered 09/21/23 13:12 Dose 975 mg .ROUTE .STK-MED ONE Oxycodone/Acetaminophen 1 tab 09/21/23 13:35 09/21/23 13:40 Oxycodone / Apap 10/325 Mg 1 Tablet PO 09/21/23 13:36 1 tab STAT STA Administration Oxycodone/Acetaminophen Confirm 09/21/23 13:39 Oxycodone / Apap 10/325 Mg 1 Tablet Administered 09/21/23 13:40 Dose 1 tab .ROUTE .STK-MED ONE - Progress Progress: improved Progress Note: 83-year-old female presents to our ED for evaluation of right knee pain and head injury. Patient tripped on carpet. Physical exam reveals swelling of the right knee. There is a superficial abrasion right cheek. Patient on Eliquis CT head negative for acute intracranial pathology. Right knee x-ray negative for fracture dislocation however patient is significant pain. Blistering formation over her right knee likely secondary to rapid swelling. Patient lives alone and unable to maneuver at home. Patient requesting admission for pain control and ADL training. Case discussed with hospitalist Dr. Finley accepts admission to observation. Patient accepted at 2:26 PM. Portions of this note were created with voice recognition technology. There may be grammatical, spelling, punctuation or sound alike errors Complexity problem addressed is moderate acute complicated. No critical care time. Complex of data reviewed and analyzed is extensive. Test ordered chest reviewed results analyzed and correlated clinically with history and physical exam. Management discussed with hospitalist who accepts admission to observation. Risk complication and or risk of morbidity/mortality patient management is high. Patient requires hospitalization for further evaluation and treatment. Vital stable. Time spent to disposition patient approximately 20 minutes. Plan of care established for shared decision making. No social determinants of health present impede follow-up. Portions of this note were created with voice recognition technology. There may be grammatical, spelling, punctuation or sound alike errors 09/21/23 14:30 Counseled pt/family regarding: diagnosis, need for follow-up, rad results - Departure Departure Disposition: Observation Clinical Impression: Fall, Knee pain, Facial abrasion Condition: Stable Critical Care Time: No Referrals: JAGJIT TAVAREZ [Primary Care Provider] - Follow up/PCP as directed
[2023-09-21] MEDS ORDERED: OXYCODONE-ACETAMINOPHEN 10-325 ONE (13:39)
[2023-09-21] MEDS: OXYCODONE-ACETAMINOPHEN 10-325 PO STA (13:40)
--- NOTE | 2023-09-21 16:01 | PCM.HP ---
History of Present Illness - Chief Complaint Chief Complaint: fall, Knee pain Date: 09/21/23 History of Present Illness: is a 83 year old female with PMHX of DJD, OA, CAD, [place], HTN, TYpe II DM, depression, and obesity. She presented to the ED today for evaluation status post fall. Patient complains of pain to her right knee as well as abrasion to her right face. Patient is on chronic Eliquis. No headache or neck pain reported. Cervical spine cleared clinically in ER. Patient's fall was mechanical as she tripped on a carpet. No associated neuro cardiovascular symptomology. No chest pain or shortness of breath. No nausea vomiting or diaphoresis. No numbness tingling or weakness. Pain to right knee is localized. Pain worse with movement and palpation. Patient advises that she has had a right knee arthroplasty in the past. Patient requestied oxycodone for pain control in ER and was given this. She appears to be opiod naive per med list. She reports she took in the past with knee replacmenet and had no reaction therefore asked for this. XR of right knee shows no concerns. Will Consult ortho and apply RICE techniques. Bp elevated and she reports she did not take her morning meds. CT of head negative for acute findings. She does have an abrasion to right samaritan. Will have PT evaluate for home needs vs. rehab. She does live alone and cannot drive but would rather go home than to rehab at d/c. She has been admitted for pain control, PT eval, and possible placement. She voices no other complaints or concerns at this time. - Review of Systems Constitutional: No Fever, No Chills Eyes: No Symptoms Ears, Nose, & Throat: No Symptoms Respiratory: No Cough, No Short Of Breath Cardiac: No Chest Pain, No Edema, No Syncope Abdominal/Gastrointestinal: No Abdominal Pain, No Nausea, No Vomiting, No Diarrhea Genitourinary Symptoms: No Dysuria Musculoskeletal: Joint Pain (knee), No Back Pain, No Neck Pain Skin: Skin Lesions (right knee bruising and blisters), Other (abrasion to samaritan from fall), No Rash Neurological: No Dizziness, No Focal Weakness, No Sensory Changes Psychological: No Symptoms Endocrine: No Symptoms Hematologic/Lymphatic: No Symptoms Immunological/Allergic: No Symptoms Medications & Allergies Home Medications: Home Medication List Furosemide [Lasix] 1 ea PO DAILY 12/10/21 [History Confirmed 09/21/23] Sertraline HCl [Zoloft] 1 ea PO DAILY 12/10/21 [History Confirmed 09/21/23] Apixaban [Eliquis 5 mg Tablet] 1 ea PO BID 01/18/22 [History Confirmed 09/21/23] Ergocalciferol (Vitamin D2) [Vitamin D2] 2 cap PO WEEKLY 07/20/22 [History Confirmed 09/21/23] Levothyroxine Sodium 75 Mcg [Synthroid 75 Mcg] 1 tab PO DAILY 07/20/22 [History Confirmed 09/21/23] Metoprolol Succinate 25 mg Xl* [Toprol-Xl 25MG Tablets] 1 tab PO HS 07/20/22 [History Confirmed 01/14/23] Rosuvastatin Calcium 1 tab PO HS 07/20/22 [History Confirmed 09/21/23] Glimepiride 2 mg [Amaryl 2 MG] 1 tab PO BID 01/14/23 [History Confirmed 09/21/23] Oxybutynin Chloride [Oxybutynin Chloride ER] 10 mg PO DAILY 01/14/23 [History Confirmed 09/21/23] Nitroglycerin 0.4 mg (Ed) [Nitrostat 0.4 MG (ED)] 0.4 mg SL STAT PRN 09/21/23 [History Confirmed 09/21/23] Allergies/Adverse Reactions: Allergies Allergy/AdvReac Type Severity Reaction Status Date / Time morphine Allergy Verified 09/21/23 12:06 - Past Medical History Past Medical History: Yes Neurological History: No Pertinent History ENT History: No Pertinent History Cardiac History: Coronary Artery Disease, Hypertension, Myocardial Infarction (VT), Other Respiratory History: No Pertinent History Endocrine Medical History: Diabetes Type II Musculoskelatal History: Degenerative Disk Disease, Osteoarthritis GI Medical History: Gallbladder Disease Comment: patient intermittent confusion, history pulled from medical record - Past Surgical History Past Surgical History: Yes Neuro Surgical History: No Pertinent History Cardiac History: Cardiac Catheterization, Cardiac Stent GI Surgical History: Cholecystectomy Musculskeletal Surgical Hx: Orthopedic Surgery Female Surgical History: Hysterectomy Other Surgical History: RIGHT KNEE - Social History Smoking Status: Former smoker Exposure to second hand smoke: No Alcohol: None Drug Use: none - Social Determinants of Health Will the patient participate in the screening: Declined to provide - Physical Exam Vital Signs: Vital Signs - 24 hr Pulse Resp BP BP Pulse Ox 09/21/23 14:36 98 09/21/23 13:20 63 18 186/95 98 09/21/23 12:45 63 16 186/85 97 09/21/23 12:30 172/71 97 General Appearance: no apparent distress, alert, obese Neurologic Exam: alert, oriented x 3, cooperative, normal mood/affect, nml cerebellar function, nml station & gait, sensation nml, No motor deficits Eye Exam: PERRL/EOMI, eyes nml inspection Ears, Nose, Throat Exam: normal ENT inspection, TMs normal, pharynx normal, moist mucous membranes Neck Exam: normal inspection, non-tender, supple, full range of motion Respiratory Exam: normal breath sounds, lungs clear, No respiratory distress Cardiovascular Exam: regular rate/rhythm, normal heart sounds, normal peripheral pulses Gastrointestinal/Abdomen Exam: soft, normal bowel sounds, No tenderness, No mass Back Exam: normal inspection, normal range of motion, No CVA tenderness, No vertebral tenderness Extremity Exam: normal inspection, normal range of motion, pelvis stable, limited range of motion (right knee) Skin Exam: normal color, warm, dry, other (right knee swelling, bruising, blisters. Abrasion to right samaritan.), No rash Lymphatic Exam: No adenopathy Results - Radiology Impressions Radiology Exams & Impressions: Radiology Procedures Category Date Time Status HEAD WITHOUT CONTRAST [CT] Stat Exams 09/21/23 12:39 Completed KNEE (3 VIEWS) Stat Exams 09/21/23 12:40 Completed Assessment/Plan (1) Knee pain Current Visit: Yes Status: Acute Assessment & Plan: - After tripping over rug - XR right knee 3 view right knee demonstrates osteopenia, total knee arthroplasty with intact prosthesis/articulation, mild scattered vascular calcifications, and anterior soft tissue swelling. No other bony, articular, or soft tissue abnormalities. - oxycodone gave in ER- continue at lower dose TID PRN - Tylenol PRN - may use ice pack and elevation - RICE techniques PRN - PT eval - possible need for placement- she does not want this and OK with [facility]- she does live alone - Ortho consult - Hold eliquis d/t bruising Code(s): M25.569 - PAIN IN UNSPECIFIED KNEE (2) HTN (hypertension) Current Visit: Yes Status: Chronic Assessment & Plan: - BP elevated- did not take meds today- will restart - hydralizine PRN - trend Code(s): I10 - ESSENTIAL (PRIMARY) HYPERTENSION (3) Type II diabetes mellitus Current Visit: Yes Status: Chronic Assessment & Plan: - A1C - Oral control- continue (4) DJD (degenerative joint disease) Current Visit: Yes Status: Chronic Assessment & Plan: - tylenol for pain Code(s): M19.90 - UNSPECIFIED OSTEOARTHRITIS, UNSPECIFIED SITE (5) Depression Current Visit: Yes Status: Acute Assessment & Plan: - Continue Zoloft Code(s): F32.A - DEPRESSION, UNSPECIFIED (6) Obesity (BMI 30.0-34.9) Current Visit: Yes Status: Acute Assessment & Plan: - advised ADA diet and exercise control Code(s): E66.9 - OBESITY, UNSPECIFIED (7) Facial abrasion Current Visit: Yes Status: Acute Assessment & Plan: - CT head Impression: Remote lacunar infarcts external capsule bilaterally. No acute intracranial abnormalities - Small abrasion on left samaritan- no LOC Code(s): S00.81XA - ABRASION OF OTHER PART OF HEAD, INITIAL ENCOUNTER (8) Fall Current Visit: Yes Status: Acute Assessment & Plan: - PT eval and treat - consider [facility] Code(s): W19.XXXA - UNSPECIFIED FALL, INITIAL ENCOUNTER (9) Anxiety Current Visit: Yes Status: Acute Assessment & Plan: - Continue Zoloft Code(s): F41.9 - ANXIETY DISORDER, UNSPECIFIED (10) Hypothyroidism Current Visit: Yes Status: Chronic Assessment & Plan: - Continue synthroid - TSH in AM VTE: [place] held- SCD's Next of KIN: Ngozi Van [phone] D/C plan: tomorrow? Code status:Full Code(s): E03.9 - HYPOTHYROIDISM, UNSPECIFIED Telemedicine Encounter - Telemedicine Encounter Telemedicine Encounter: "The entirety of this encounter was performed via Telemedicine" This visit was performed using real-time audio and video connection between my location and thepatients locationwith the assistance of a surrogateat the patients location. Written or verbal consent was obtained from the patient /guardian to perform this visit usingsynchrTidy Bookstelemedicine technology. Any patient questions regarding the telemedicine interaction were answered.
[2023-09-21] MEDS ORDERED: APRESOLINE 20 MG/ML INJ IV PRN (16:06)
[2023-09-21 16:26] LABS: Hematocrit 39.3 % (34.1-44.9); Hemoglobin 12.5 g/dL (11.2-15.7); Mean Cell Volume 90.1 fL (79.4-94.8); Mean Corpuscular Hemoglobin 28.7 pg (25.6-32.2); Mean Corpuscular Hgb Concent. 31.8 g/dL (32.2-35.5); Mean Platelet Volume 11.1 fL (9.4-12.3); Platelet Count 159 x10^3/uL (182-369); Red Blood Count 4.36 x10^6/uL (3.93-5.22); Red Cell Distribution Width 14.4 % (11.7-14.4); White Blood Count 8.8 x10^3/uL (3.98-10.04)
[2023-09-21] MEDS ORDERED: Zofran 4 MG/2 ML VIAL IV PRN (16:35)
[2023-09-21] MEDS ORDERED: PERCOCET TABLET 5/325MG PO PRN (16:36)
[2023-09-21 16:53] LABS: ANION GAP 11.3 MEQ/L (5-15); BILIRUBIN,TOTAL 1.1 mg/dL (0.2-1.3); Calcium 9.1 mg/dL (8.4-10.2); Creatinine 1 0.94 mg/dL (0.52-1.04); EST GLOMERULAR FILTRATION RATE 59.8 ML/MIN; Potassium 3.8 mmol/L (3.5-5.1); Total Protein 6.9 g/dL (6.3-8.2)
[2023-09-21] MEDS ORDERED: ZOLOFT 50 MG TABLET ONE (16:54)
[2023-09-21] MEDS ORDERED: Ditropan XL 5 MG PO ONE (16:54)
[2023-09-21] MEDS ORDERED: SYNTHROID 75 MCG ONE (16:54)
[2023-09-21] MEDS ORDERED: LASIX 20 MG ONE (16:54)
[2023-09-21] MEDS ORDERED: Toprol-Xl 25MG Tablets ONE (16:56)
[2023-09-21] MEDS: ZOLOFT 50 MG TABLET PO SCH (16:57)
[2023-09-21] MEDS: Toprol-Xl 25MG Tablets PO SCH (16:58)
[2023-09-21] MEDS: SYNTHROID 75 MCG PO SCH (16:58)
[2023-09-21] MEDS: Ditropan XL 5 MG PO SCH (16:58)
[2023-09-21] MEDS: LASIX 20 MG PO SCH (16:58)
[2023-09-21] MEDS: Amaryl 2 MG PO SCH (17:00)
[2023-09-21] MEDS: ZOCOR 20MG PO SCH (22:14)
[2023-09-22 04:51] LABS: Hematocrit 35.1 % (34.1-44.9); Hemoglobin 10.8 g/dL (11.2-15.7); Mean Cell Volume 90.2 fL (79.4-94.8); Mean Corpuscular Hemoglobin 27.8 pg (25.6-32.2); Mean Corpuscular Hgb Concent. 30.8 g/dL (32.2-35.5); Mean Platelet Volume 10.9 fL (9.4-12.3); Platelet Count 146 x10^3/uL (182-369); Red Blood Count 3.89 x10^6/uL (3.93-5.22); Red Cell Distribution Width 14.5 % (11.7-14.4)
[2023-09-22 05:19] LABS: ALBUMIN 3.3 g/dL (3.5-5.0); ANION GAP 8.6 MEQ/L (5-15); Calcium 8.7 mg/dL (8.4-10.2); Creatinine 1 0.88 mg/dL (0.52-1.04); EST GLOMERULAR FILTRATION RATE 64.8 ML/MIN; Total Protein 5.9 g/dL (6.3-8.2)
[2023-09-22] MEDS: SYNTHROID 100 MCG PO SCH (08:12)
--- NOTE | 2023-09-22 10:41 | PCM.NOTE ---
Date and Time: 09/22/23 1035 Subjective Assessment: 09/21/23 is a 83 year old female with PMHX of DJD, OA, CAD, [place], HTN, TYpe II DM, depression, and obesity. She presented to the ED today for evaluation status post fall, ground level fall onto concrete. Patient complains of pain to her right knee as well as abrasion to her right face. Patient is on chronic Eliquis. No headache or neck pain reported. Cervical spine cleared clinically in ER. Patient's fall was mechanical as she tripped on a carpet. No associated neuro cardiovascular symptomology. No chest pain or shortness of breath. No nausea vomiting or diaphoresis. No numbness tingling or weakness. Pain to right knee is localized. Pain worse with movement and palpation. Patient advises that she has had a right knee arthroplasty in the past. Patient requestied oxycodone for pain control in ER and was given this. She appears to be opiod naive per med list. She reports she took in the past with knee replacmenet and had no reaction therefore asked for this. XR of right knee shows no concerns. Will Consult ortho and apply RICE techniques. Bp elevated and she reports she did not take her morning meds. CT of head negative for acute findings. She does have an abrasion to right jehovah's witness. Will have PT evaluate for home needs vs. rehab. She does live alone and cannot drive but would rather go home than to rehab at d/c. She has been admitted for pain control, PT eval, and possible placement. She voices no other complaints or concerns at this time. 09/21 Pt sitting up in bed this morning. She reports she is feeling better today and pain is well controlled. Anticoagulation stopped yesterday d/t bruising of right knee. Bruising of right knee improved. She continues to have some large blisters of R knee. PT consulted for wound care. Ortho to evaluate pt today and made her NPO until they evaluate. She feels the SCD's were very helpful in controlling her pain and she is not requiring much pain medication with them on. Pt to eval needs. Will keep overnight and likely d/c tomorrow. Plan is to restart anticoagulation tomorrow. She denies CP, SOB, abd. pain, N/V/D. - Review of Systems Constitutional: No Fever, No Chills Eyes: No Symptoms Ears, Nose, & Throat: No Symptoms Respiratory: No Cough, No Short Of Breath Cardiac: No Chest Pain, No Edema, No Syncope Abdominal/Gastrointestinal: No Abdominal Pain, No Nausea, No Vomiting, No Diarrhea Genitourinary Symptoms: No Dysuria Musculoskeletal: Joint Pain (right knee), Joint Swelling, No Back Pain, No Neck Pain Skin: Other (blisters right knee), No Rash Neurological: No Dizziness, No Focal Weakness, No Sensory Changes Psychological: No Symptoms Endocrine: No Symptoms Hematologic/Lymphatic: No Symptoms Immunological/Allergic: No Symptoms Objective Exam General Appearance: no apparent distress, alert, obese Neurologic Exam: alert, oriented x 3, cooperative, normal mood/affect, nml cerebellar function, sensation nml, No motor deficits Skin Exam: normal color, warm, dry, other (blisters to right knee and bruisng) Wound Assessment: Skin/Wound Assessment Wound/Incision Assessment Start: 09/21/23 16:08 Text: Status: Active Freq: Q6H Protocol: Document 09/22/23 08:00 JASON (Rec: 09/22/23 08:10 JASON [id number]) Wound/Incision Assessment Right Knee Wound Assessment Shift Assessment Wound Type BRUSING AND FLUID FILLED BLISTERS Wound Stage Non Pressure Wound Drainage Amount None General Appearance Open to air Surrounding Tissue Purple Right Lateral Head Wound Assessment Shift Assessment Wound Type Abrasion Wound Stage Non Pressure Wound Dressing Status Dry & Intact Drainage Amount None General Appearance Well Approximated,Clean/Dry Primary Dressing STERI STRIPS Comment BRUISING NOTED ALSO Eye Exam: PERRL, EOMI, eyes nml inspection Ears, Nose, Throat Exam: normal ENT inspection, pharynx normal, moist mucous membranes Neck Exam: normal inspection, non-tender, supple, full range of motion Respiratory Exam: normal breath sounds, lungs clear, No respiratory distress Cardiovascular Exam: regular rate/rhythm, normal heart sounds Gastrointestinal/Abdomen Exam: soft, No tenderness, No mass Extremity Exam: normal inspection, normal range of motion, inflammation (right knee), joint swelling (right knee), limited range of motion (right knee), s welling (right knee), tenderness Back Exam: normal inspection, normal range of motion, No CVA tenderness, No vertebral tenderness Pelvic Exam: deferred Rectal Exam: deferred Objective Data Vital Signs: Vital Signs - 24 hr Temp Pulse Resp BP BP Pulse Ox 09/22/23 07:21 98.4 F 63 16 122/58 95 09/22/23 04:00 97.1 F 62 14 126/58 95 09/22/23 00:00 96.8 F 57 L 15 137/63 97 09/21/23 20:00 97.2 F 65 20 159/70 93 L 09/21/23 18:32 97.5 F 60 16 141/65 96 09/21/23 15:33 97.5 F 67 16 153/72 98 09/21/23 15:12 63 186/95 98 09/21/23 14:36 98 09/21/23 13:20 63 18 186/95 98 09/21/23 12:45 63 16 186/85 97 09/21/23 12:30 172/71 97 Pain Assessment - Last Documented Pain Intensity 0 Intake and Output: Intake & Output 09/19/23 09/20/23 09/21/23 09/22/23 11:59 11:59 11:59 11:59 Intake Total 940 Balance 940 Weight 97 kg Lab Results: Lab Results-Last 24 Hours 09/21/23 09/21/23 09/21/23 Range/Units 16:00 16:00 16:10 WBC 8.8 (3.98-10.04) x10^3/uL RBC 4.36 (3.93-5.22) x10^6/uL Hgb 12.5 (11.2-15.7) g/dL Hct 39.3 (34.1-44.9) % MCV 90.1 (79.4-94.8) fL MCH 28.7 (25.6-32.2) pg MCHC 31.8 L (32.2-35.5) g/dL RDW 14.4 (11.7-14.4) % Plt Count 159 L (182-369) x10^3/uL MPV 11.1 (9.4-12.3) fL Sodium 141 (135-145) mmol/L Potassium 3.8 (3.5-5.1) mmol/L Chloride 103 (98-107) mmol/L Carbon Dioxide 31 H (22-30) mmol/L Anion Gap 11.3 (5-15) MEQ/L BUN 18 H (7-17) mg/dL Creatinine 0.94 (0.52-1.04) mg/dL Estimated GFR 59.8 ML/MIN Glucose 128 H (74-106) mg/dL POC Glucometer (74 to 106) mg/dL Hemoglobin A1c 6.64 H (4.5-6.0) % Calcium 9.1 (8.4-10.2) mg/dL Total Bilirubin 1.10 (0.2-1.3) mg/dL AST 36 (14-36) U/L ALT 19 (0-35) U/L Alkaline Phosphatase 48 (38-126) U/L Serum Total Protein 6.9 (6.3-8.2) g/dL Albumin 4.0 (3.5-5.0) g/dL TSH 3rd Generation (0.470-4.680) mIU/L 09/21/23 09/21/23 09/22/23 Range/Units 22:13 22:13 04:27 WBC 7.0 (3.98-10.04) x10^3/uL RBC 3.89 L (3.93-5.22) x10^6/uL Hgb 10.8 L (11.2-15.7) g/dL Hct 35.1 (34.1-44.9) % MCV 90.2 (79.4-94.8) fL MCH 27.8 (25.6-32.2) pg MCHC 30.8 L (32.2-35.5) g/dL RDW 14.5 H (11.7-14.4) % Plt Count 146 L (182-369) x10^3/uL MPV 10.9 (9.4-12.3) fL Sodium (135-145) mmol/L Potassium (3.5-5.1) mmol/L Chloride (98-107) mmol/L Carbon Dioxide (22-30) mmol/L Anion Gap (5-15) MEQ/L BUN (7-17) mg/dL Creatinine (0.52-1.04) mg/dL Estimated GFR ML/MIN Glucose (74-106) mg/dL POC Glucometer 112 H 112 H (74 to 106) mg/dL Hemoglobin A1c (4.5-6.0) % Calcium (8.4-10.2) mg/dL Total Bilirubin (0.2-1.3) mg/dL AST (14-36) U/L ALT (0-35) U/L Alkaline Phosphatase (38-126) U/L Serum Total Protein (6.3-8.2) g/dL Albumin (3.5-5.0) g/dL TSH 3rd Generation (0.470-4.680) mIU/L 09/22/23 09/22/23 09/22/23 Range/Units 04:27 04:27 07:05 WBC (3.98-10.04) x10^3/uL RBC (3.93-5.22) x10^6/uL Hgb (11.2-15.7) g/dL Hct (34.1-44.9) % MCV (79.4-94.8) fL MCH (25.6-32.2) pg MCHC (32.2-35.5) g/dL RDW (11.7-14.4) % Plt Count (182-369) x10^3/uL MPV (9.4-12.3) fL Sodium 138 (135-145) mmol/L Potassium 4.0 (3.5-5.1) mmol/L Chloride 102 (98-107) mmol/L Carbon Dioxide 31 H (22-30) mmol/L Anion Gap 8.6 (5-15) MEQ/L BUN 20 H (7-17) mg/dL Creatinine 0.88 (0.52-1.04) mg/dL Estimated GFR 64.8 ML/MIN Glucose 93 (74-106) mg/dL POC Glucometer 99 (74 to 106) mg/dL Hemoglobin A1c (4.5-6.0) % Calcium 8.7 (8.4-10.2) mg/dL Total Bilirubin 1.00 (0.2-1.3) mg/dL AST 33 (14-36) U/L ALT 16 (0-35) U/L Alkaline Phosphatase 39 (38-126) U/L Serum Total Protein 5.9 L (6.3-8.2) g/dL Albumin 3.3 L (3.5-5.0) g/dL TSH 3rd Generation 4.036 (0.470-4.680) mIU/L Radiology Exams: Radiology Procedures Category Date Time Status HEAD WITHOUT CONTRAST [CT] Stat Exams 09/21/23 12:39 Completed KNEE (3 VIEWS) Stat Exams 09/21/23 12:40 Completed Assessment/Plan (1) Knee pain Current Visit: Yes Status: Acute Code(s): M25.569 - PAIN IN UNSPECIFIED KNEE (2) HTN (hypertension) Current Visit: Yes Status: Chronic Code(s): I10 - ESSENTIAL (PRIMARY) HYPERTENSION (3) Type II diabetes mellitus Current Visit: Yes Status: Chronic (4) DJD (degenerative joint disease) Current Visit: Yes Status: Chronic Code(s): M19.90 - UNSPECIFIED OSTEOARTHRITIS, UNSPECIFIED SITE (5) Depression Current Visit: Yes Status: Acute Code(s): F32.A - DEPRESSION, UNSPECIFIED (6) Obesity (BMI 30.0-34.9) Current Visit: Yes Status: Acute Code(s): E66.9 - OBESITY, UNSPECIFIED (7) Facial abrasion Current Visit: Yes Status: Acute Code(s): S00.81XA - ABRASION OF OTHER PART OF HEAD, INITIAL ENCOUNTER (8) Fall Current Visit: Yes Status: Acute Code(s): W19.XXXA - UNSPECIFIED FALL, INITIAL ENCOUNTER (9) Anxiety Current Visit: Yes Status: Acute Code(s): F41.9 - ANXIETY DISORDER, UNSPECIFIED (10) Hypothyroidism Current Visit: Yes Status: Chronic Assessment & Plan: (1) Knee pain Current Visit: Yes Status: Acute Assessment & Plan: - After tripping over rug - XR right knee 3 view right knee demonstrates osteopenia, total knee arthroplasty with intact prosthesis/articulation, mild scattered vascular calcifications, and anterior soft tissue swelling. No other bony, articular, or soft tissue abnormalities. - oxycodone gave in ER- continue at lower dose TID PRN - Tylenol PRN - may use ice pack and elevation - RICE techniques PRN - PT eval - possible need for placement- she does not want this and OK with [facility]- she does live alone - Ortho consult - Hold elierikis d/t bruising 09/21 - Ortho eval - PT eval for ROM and home needs - PT eval for wound care - case management assistance with d/c plan of care - pain well controlled - plan to restart oral anticoagulation tomorrow Code(s): M25.569 - PAIN IN UNSPECIFIED KNEE (2) HTN (hypertension) Current Visit: Yes Status: Chronic Assessment & Plan: - BP elevated- did not take meds today- will restart - hydralizine PRN - trend / - Bp well controlled with home meds today Code(s): I10 - ESSENTIAL (PRIMARY) HYPERTENSION (3) Type II diabetes mellitus Current Visit: Yes Status: Chronic Assessment & Plan: - A1C 6.64- controlled - Oral control- continue (4) DJD (degenerative joint disease) Current Visit: Yes Status: Chronic Assessment & Plan: - tylenol for pain Code(s): M19.90 - UNSPECIFIED OSTEOARTHRITIS, UNSPECIFIED SITE (5) Depression Current Visit: Yes Status: Acute Assessment & Plan: - Continue Zoloft Code(s): F32.A - DEPRESSION, UNSPECIFIED (6) Obesity (BMI 30.0-34.9) Current Visit: Yes Status: Acute Assessment & Plan: - advised ADA diet and exercise control Code(s): E66.9 - OBESITY, UNSPECIFIED (7) Facial abrasion Current Visit: Yes Status: Acute Assessment & Plan: - CT head Impression: Remote lacunar infarcts external capsule bilaterally. No acute intracranial abnormalities - Small abrasion on left jehovah's witness- no LOC 7/ - increased bruising about right eye - LAC with dermabond in ER yesterday Code(s): S00.81XA - ABRASION OF OTHER PART OF HEAD, INITIAL ENCOUNTER (8) Fall Current Visit: Yes Status: Acute Assessment & Plan: - PT eval and treat - consider [facility] Code(s): W19.XXXA - UNSPECIFIED FALL, INITIAL ENCOUNTER (9) Anxiety Current Visit: Yes Status: Acute Assessment & Plan: - Continue Zoloft Code(s): F41.9 - ANXIETY DISORDER, UNSPECIFIED (10) Hypothyroidism Current Visit: Yes Status: Chronic Assessment & Plan: - Continue synthroid - TSH-4.036- stable VTE: Eliquis joe- SCD's Next of KIN: Ngozi Van [phone] D/C plan: tomorrow Code status:Full Code(s): E03.9 - HYPOTHYROIDISM, UNSPECIFIED Code(s): E03.9 - HYPOTHYROIDISM, UNSPECIFIED
--- NOTE | 2023-09-22 16:01 | PCM.CONS ---
History of Present Illness - Consult Date of Consultation Date: 09/22/23 Reason for Consult: Right knee contusion Consulting Provider: JEAN PAUL HANSEN MD - [facility] History of Present Illness: is a 83 year old female.She fell yesterday injuring her right knee. Had a right total knee replacement in [place] about 10 years ago. They have been doing well.She is on Eliquis 5 mg twice daily for her heart and has a stent.She developed significant medical swelling and blistering on her right knee and came in to have the knee checked out. It was fairly painful but much better now.Any numbness or tingling. She did have some facial lacerations and abrasions which were treated by the emergency room. She was seen by therapy was felt to be doing well with a walker Medications & Allergies Home Medications: Home Medication List Furosemide [Lasix] 1 ea PO DAILY 12/10/21 [History Confirmed 09/21/23] Sertraline HCl [Zoloft] 1 ea PO DAILY 12/10/21 [History Confirmed 09/21/23] Apixaban [Eliquis 5 mg Tablet] 1 ea PO BID 01/18/22 [History Confirmed 09/21/23] Ergocalciferol (Vitamin D2) [Vitamin D2] 2 cap PO WEEKLY 07/20/22 [History Confirmed 09/21/23] Metoprolol Succinate 25 mg Xl* [Toprol-Xl 25MG Tablets] 1 tab PO HS 07/20/22 [History Confirmed 09/21/23] Rosuvastatin Calcium 1 tab PO HS 07/20/22 [History Confirmed 09/21/23] Glimepiride 2 mg [Amaryl 2 MG] 1 tab PO BID 01/14/23 [History Confirmed 09/21/23] Oxybutynin Chloride [Oxybutynin Chloride ER] 10 mg PO DAILY 01/14/23 [History Confirmed 09/21/23] Nitroglycerin 0.4 mg (Ed) [Nitrostat 0.4 MG (ED)] 0.4 mg SL STAT PRN 09/21/23 [History Confirmed 09/21/23] Levothyroxine Sodium 100 Mcg [Synthroid 100 Mcg] 100 mcg PO 0700 09/22/23 [History Confirmed 09/22/23] Potassium Chloride Tab* [Klor Con] 10 meq PO DAILY 09/22/23 [History Confirmed 09/22/23] Allergies/Adverse Reactions: Allergies Allergy/AdvReac Type Severity Reaction Status Date / Time morphine Allergy Verified 09/21/23 12:06 - Past Medical History Past Medical History: Yes Neurological History: No Pertinent History ENT History: No Pertinent History Cardiac History: Coronary Artery Disease, Hypertension, Myocardial Infarction (CT), Other Respiratory History: No Pertinent History Endocrine Medical History: Diabetes Type II Musculoskelatal History: Degenerative Disk Disease, Osteoarthritis GI Medical History: Gallbladder Disease History: No Pertinent History Pyscho-Social History: Anxiety Reproductive Disorders: No Pertinent History Comment: patient intermittent confusion, history pulled from medical record - Past Surgical History Past Surgical History: Yes Neuro Surgical History: No Pertinent History Cardiac History: Cardiac Catheterization, Cardiac Stent Respiratory Surgery: No Pertinent History GI Surgical History: Cholecystectomy Genitourinary Surgical Hx: No Pertinent History Musculskeletal Surgical Hx: Orthopedic Surgery Female Surgical History: Hysterectomy Other Surgical History: RIGHT KNEE - Social History Smoking Status: Former smoker Exposure to second hand smoke: No Alcohol: None Drug Use: none - Social Determinants of Health Will the patient participate in the screening: Declined to provide - Nursing Vital Signs Nursing Vital Signs: Vital Signs - 24 hr Temp Pulse Resp BP Pulse Ox 09/22/23 12:00 97.7 F 61 16 111/55 97 09/22/23 07:21 98.4 F 63 16 122/58 95 09/22/23 04:00 97.1 F 62 14 126/58 95 09/22/23 00:00 96.8 F 57 L 15 137/63 97 09/21/23 20:00 97.2 F 65 20 159/70 93 L 09/21/23 18:32 97.5 F 60 16 141/65 96 - Physical Exam SpO2: 97 - Narrative Narrative Physical Exam: Ortho Physical Exam Pleasant female, no apparent distress, alert and orient x 3, moderately obese Right knee shows large superficial blisters over the anterior knee with bruising medially and laterally. Worse medially.Mild effusion but difficult to tell with her tenderness to palpation with the blisters.Varus and valgus. Flex about 0- 40.Can actively extend the knee against resistance. Good sensation distally. 5/5 dorsiflexion plantarflexion X-rays shows what looks like a [place] triathlon posterior substituting cemented total knee withNo fracture. Good alignment. Assessment/Plan (1) Contusion of right knee Current Visit: Yes Status: Acute Assessment & Plan: Instructed patient that I think she would be more comfortable If we popped the blisters as they are going to pop anyway. Patient consented to this. She had the knee prepped sterilely with alcohol and then an 18-gauge needle was used to make 5 mL slits in all the blisters allowing the fluid come completely out. She then had sterile nonstick dressings applied with a 6 inch Siva wrap. Patient may continue weightbearing as tolerated with a walker. She should hold her Eliquis for 2 days due to the bleeding in her kneeSoft tissue She may continue range of motion the knee. May ice the knee. May change the dressing as needed. She may shower in 3 days. Return in 1 week for wound check or immediately if starts being infected with redness or drainage of puslike fluid Code(s): S80.01XA - CONTUSION OF RIGHT KNEE, INITIAL ENCOUNTER Results - Labs Lab/Micro Results: Lab Results-Last 24 Hours 09/21/23 09/21/23 09/21/23 Range/Units 16:00 16:00 16:10 WBC 8.8 (3.98-10.04) x10^3/uL RBC 4.36 (3.93-5.22) x10^6/uL Hgb 12.5 (11.2-15.7) g/dL Hct 39.3 (34.1-44.9) % MCV 90.1 (79.4-94.8) fL MCH 28.7 (25.6-32.2) pg MCHC 31.8 L (32.2-35.5) g/dL RDW 14.4 (11.7-14.4) % Plt Count 159 L (182-369) x10^3/uL MPV 11.1 (9.4-12.3) fL Sodium 141 (135-145) mmol/L Potassium 3.8 (3.5-5.1) mmol/L Chloride 103 (98-107) mmol/L Carbon Dioxide 31 H (22-30) mmol/L Anion Gap 11.3 (5-15) MEQ/L BUN 18 H (7-17) mg/dL Creatinine 0.94 (0.52-1.04) mg/dL Estimated GFR 59.8 ML/MIN Glucose 128 H (74-106) mg/dL POC Glucometer (74 to 106) mg/dL Hemoglobin A1c 6.64 H (4.5-6.0) % Calcium 9.1 (8.4-10.2) mg/dL Total Bilirubin 1.10 (0.2-1.3) mg/dL AST 36 (14-36) U/L ALT 19 (0-35) U/L Alkaline Phosphatase 48 (38-126) U/L Serum Total Protein 6.9 (6.3-8.2) g/dL Albumin 4.0 (3.5-5.0) g/dL TSH 3rd Generation (0.470-4.680) mIU/L 09/21/23 09/21/23 09/22/23 Range/Units 22:13 22:13 04:27 WBC 7.0 (3.98-10.04) x10^3/uL RBC 3.89 L (3.93-5.22) x10^6/uL Hgb 10.8 L (11.2-15.7) g/dL Hct 35.1 (34.1-44.9) % MCV 90.2 (79.4-94.8) fL MCH 27.8 (25.6-32.2) pg MCHC 30.8 L (32.2-35.5) g/dL RDW 14.5 H (11.7-14.4) % Plt Count 146 L (182-369) x10^3/uL MPV 10.9 (9.4-12.3) fL Sodium (135-145) mmol/L Potassium (3.5-5.1) mmol/L Chloride (98-107) mmol/L Carbon Dioxide (22-30) mmol/L Anion Gap (5-15) MEQ/L BUN (7-17) mg/dL Creatinine (0.52-1.04) mg/dL Estimated GFR ML/MIN Glucose (74-106) mg/dL POC Glucometer 112 H 112 H (74 to 106) mg/dL Hemoglobin A1c (4.5-6.0) % Calcium (8.4-10.2) mg/dL Total Bilirubin (0.2-1.3) mg/dL AST (14-36) U/L ALT (0-35) U/L Alkaline Phosphatase (38-126) U/L Serum Total Protein (6.3-8.2) g/dL Albumin (3.5-5.0) g/dL TSH 3rd Generation (0.470-4.680) mIU/L 09/22/23 09/22/23 09/22/23 Range/Units 04:27 04:27 07:05 WBC (3.98-10.04) x10^3/uL RBC (3.93-5.22) x10^6/uL Hgb (11.2-15.7) g/dL Hct (34.1-44.9) % MCV (79.4-94.8) fL MCH (25.6-32.2) pg MCHC (32.2-35.5) g/dL RDW (11.7-14.4) % Plt Count (182-369) x10^3/uL MPV (9.4-12.3) fL Sodium 138 (135-145) mmol/L Potassium 4.0 (3.5-5.1) mmol/L Chloride 102 (98-107) mmol/L Carbon Dioxide 31 H (22-30) mmol/L Anion Gap 8.6 (5-15) MEQ/L BUN 20 H (7-17) mg/dL Creatinine 0.88 (0.52-1.04) mg/dL Estimated GFR 64.8 ML/MIN Glucose 93 (74-106) mg/dL POC Glucometer 99 (74 to 106) mg/dL Hemoglobin A1c (4.5-6.0) % Calcium 8.7 (8.4-10.2) mg/dL Total Bilirubin 1.00 (0.2-1.3) mg/dL AST 33 (14-36) U/L ALT 16 (0-35) U/L Alkaline Phosphatase 39 (38-126) U/L Serum Total Protein 5.9 L (6.3-8.2) g/dL Albumin 3.3 L (3.5-5.0) g/dL TSH 3rd Generation 4.036 (0.470-4.680) mIU/L 09/22/23 09/22/23 Range/Units 11:56 14:20 WBC (3.98-10.04) x10^3/uL RBC (3.93-5.22) x10^6/uL Hgb (11.2-15.7) g/dL Hct (34.1-44.9) % MCV (79.4-94.8) fL MCH (25.6-32.2) pg MCHC (32.2-35.5) g/dL RDW (11.7-14.4) % Plt Count (182-369) x10^3/uL MPV (9.4-12.3) fL Sodium (135-145) mmol/L Potassium (3.5-5.1) mmol/L Chloride (98-107) mmol/L Carbon Dioxide (22-30) mmol/L Anion Gap (5-15) MEQ/L BUN (7-17) mg/dL Creatinine (0.52-1.04) mg/dL Estimated GFR ML/MIN Glucose (74-106) mg/dL POC Glucometer 101 88 (74 to 106) mg/dL Hemoglobin A1c (4.5-6.0) % Calcium (8.4-10.2) mg/dL Total Bilirubin (0.2-1.3) mg/dL AST (14-36) U/L ALT (0-35) U/L Alkaline Phosphatase (38-126) U/L Serum Total Protein (6.3-8.2) g/dL Albumin (3.5-5.0) g/dL TSH 3rd Generation (0.470-4.680) mIU/L Accuchecks Date 09/22/23 Date 09/22/23 Date 09/21/23 Time 12:13 Time 07:21 Time 22:13 - Radiology Impressions Radiology Exams & Impressions: Radiology Procedures Category Date Time Status HEAD WITHOUT CONTRAST [CT] Stat Exams 09/21/23 12:39 Completed KNEE (3 VIEWS) Stat Exams 09/21/23 12:40 Completed
[2023-09-22] MEDS: Klor Con PO SCH (16:13)
[2023-09-23 06:13] LABS: Hematocrit 33.8 % (34.1-44.9); Hemoglobin 10.7 g/dL (11.2-15.7); Mean Cell Volume 88.9 fL (79.4-94.8); Mean Corpuscular Hemoglobin 28.2 pg (25.6-32.2); Mean Corpuscular Hgb Concent. 31.7 g/dL (32.2-35.5); Mean Platelet Volume 10.9 fL (9.4-12.3); Platelet Count 142 x10^3/uL (182-369); Red Cell Distribution Width 14.9 % (11.7-14.4); White Blood Count 6.6 x10^3/uL (3.98-10.04)
[2023-09-23 06:28] LABS: ALBUMIN 3.4 g/dL (3.5-5.0); ANION GAP 8.2 MEQ/L (5-15); BILIRUBIN,TOTAL 1.2 mg/dL (0.2-1.3); Calcium 8.8 mg/dL (8.4-10.2); Creatinine 1 1.01 mg/dL (0.52-1.04); EST GLOMERULAR FILTRATION RATE 54.9 ML/MIN; Total Protein 6.2 g/dL (6.3-8.2)
[2023-09-23] MEDS: SYNTHROID 100 MCG PO SCH (06:57)
[2023-09-23 07:34] VITALS: BP 125/59; PULSE 59; RESP 18; TEMP 97.7; O2SAT 95
--- NOTE | 2023-09-23 09:08 | PCM.DS ---
Discharge Summary Date of Admission: 09/21/23 15:09 Date of Discharge: 09/23/23 Admitting Physician: ANTONY HOOVER MD Consults: Consults on Case 09/21/23 16:37 Consult Ortho ROUTINE Primary Care Provider: JAGJIT TAVAREZ Allergies Allergies morphine Allergy (Verified 09/21/23 12:06) Hospital Summary - Hospital Course Hospital Course: 09/21/23 is a 83 year old female with PMHX of DJD, OA, CAD, DE, HTN, TYpe II DM, depression, and obesity. She presented to the ED today for evaluation status post fall, ground level fall onto concrete. Patient complains of pain to her right knee as well as abrasion to her right face. Patient is on chronic Eliquis. No headache or neck pain reported. Cervical spine cleared clinically in ER. Patient's fall was mechanical as she tripped on a carpet. No associated neuro cardiovascular symptomology. No chest pain or shortness of breath. No nausea vomiting or diaphoresis. No numbness tingling or weakness. Pain to right knee is localized. Pain worse with movement and palpation. Patient advises that she has had a right knee arthroplasty in the past. Patient requestied oxycodone for pain control in ER and was given this. She appears to be opiod naive per med list. She reports she took in the past with knee replacmenet and had no reaction therefore asked for this. XR of right knee shows no concerns. Will Consult ortho and apply RICE techniques. Bp elevated and she reports she did not take her morning meds. CT of head negative for acute findings. She does have an abrasion to right orthodoxy. Will have PT evaluate for home needs vs. rehab. She does live alone and cannot drive but would rather go home than to rehab at d/c. She has been admitted for pain control, PT eval, and possible placement. She voices no other complaints or concerns at this time. 7/3 Pt sitting up in bed this morning. She reports she is feeling better today and pain is well controlled. Anticoagulation stopped yesterday d/t bruising of right knee. Bruising of right knee improved. She continues to have some large blisters of R knee. PT consulted for wound care. Ortho to evaluate pt today and made her NPO until they evaluate. She feels the SCD's were very helpful in controlling her pain and she is not requiring much pain medication with them on. Pt to eval needs. Will keep overnight and likely d/c tomorrow. Plan is to restart anticoagulation tomorrow. She denies CP, SOB, abd. pain, N/V/D. 09/23/23 Pt resting in bed. she feels she is doing well and would like to go home. She did well with PT yesterday and case management helped her get a walker. Ortho co nsulted yesterday and wants her anticoagulation held for 2 more days. She is ok to d/c w/o antibiotics per ortho. She is to return to their office in 1 week. She denies any further concerns at this time. - Vitals & Intake/Output Vital Signs: Vital Signs Temperature 97.7 F 09/23/23 07:33 Pulse Rate 59 L 09/23/23 07:33 Respiratory Rate 18 09/23/23 07:33 Blood Pressure 125/59 09/23/23 07:33 O2 Sat by Pulse Oximetry 95 09/23/23 07:33 Intake & Output: Intake & Output 09/20/23 09/21/23 09/22/23 09/23/23 11:59 11:59 11:59 11:59 Intake Total 940 600 Balance 940 600 Weight 97 kg 95.5 kg - Lab Result Diagrams: 09/23/23 05:50 09/23/23 05:50 Lab Results-Last 24 Hrs: Lab Results-Last 24 Hours 09/22/23 09/22/23 09/22/23 Range/Units 11:56 14:20 16:31 WBC (3.98-10.04) x10^3/uL RBC (3.93-5.22) x10^6/uL Hgb (11.2-15.7) g/dL Hct (34.1-44.9) % MCV (79.4-94.8) fL MCH (25.6-32.2) pg MCHC (32.2-35.5) g/dL RDW (11.7-14.4) % Plt Count (182-369) x10^3/uL MPV (9.4-12.3) fL Sodium (135-145) mmol/L Potassium (3.5-5.1) mmol/L Chloride (98-107) mmol/L Carbon Dioxide (22-30) mmol/L Anion Gap (5-15) MEQ/L BUN (7-17) mg/dL Creatinine (0.52-1.04) mg/dL Estimated GFR ML/MIN Glucose (74-106) mg/dL POC Glucometer 101 88 80 (74 to 106) mg/dL Calcium (8.4-10.2) mg/dL Total Bilirubin (0.2-1.3) mg/dL AST (14-36) U/L ALT (0-35) U/L Alkaline Phosphatase (38-126) U/L Serum Total Protein (6.3-8.2) g/dL Albumin (3.5-5.0) g/dL 09/22/23 09/23/23 09/23/23 Range/Units 22:36 05:50 05:50 WBC 6.6 (3.98-10.04) x10^3/uL RBC 3.80 L (3.93-5.22) x10^6/uL Hgb 10.7 L (11.2-15.7) g/dL Hct 33.8 L (34.1-44.9) % MCV 88.9 (79.4-94.8) fL MCH 28.2 (25.6-32.2) pg MCHC 31.7 L (32.2-35.5) g/dL RDW 14.9 H (11.7-14.4) % Plt Count 142 L (182-369) x10^3/uL MPV 10.9 (9.4-12.3) fL Sodium 139 (135-145) mmol/L Potassium 4.0 (3.5-5.1) mmol/L Chloride 102 (98-107) mmol/L Carbon Dioxide 32 H (22-30) mmol/L Anion Gap 8.2 (5-15) MEQ/L BUN 19 H (7-17) mg/dL Creatinine 1.01 (0.52-1.04) mg/dL Estimated GFR 54.9 ML/MIN Glucose 118 H (74-106) mg/dL POC Glucometer 103 (74 to 106) mg/dL Calcium 8.8 (8.4-10.2) mg/dL Total Bilirubin 1.20 (0.2-1.3) mg/dL AST 33 (14-36) U/L ALT 16 (0-35) U/L Alkaline Phosphatase 43 (38-126) U/L Serum Total Protein 6.2 L (6.3-8.2) g/dL Albumin 3.4 L (3.5-5.0) g/dL 09/23/23 Range/Units 07:15 WBC (3.98-10.04) x10^3/uL RBC (3.93-5.22) x10^6/uL Hgb (11.2-15.7) g/dL Hct (34.1-44.9) % MCV (79.4-94.8) fL MCH (25.6-32.2) pg MCHC (32.2-35.5) g/dL RDW (11.7-14.4) % Plt Count (182-369) x10^3/uL MPV (9.4-12.3) fL Sodium (135-145) mmol/L Potassium (3.5-5.1) mmol/L Chloride (98-107) mmol/L Carbon Dioxide (22-30) mmol/L Anion Gap (5-15) MEQ/L BUN (7-17) mg/dL Creatinine (0.52-1.04) mg/dL Estimated GFR ML/MIN Glucose (74-106) mg/dL POC Glucometer 112 H (74 to 106) mg/dL Calcium (8.4-10.2) mg/dL Total Bilirubin (0.2-1.3) mg/dL AST (14-36) U/L ALT (0-35) U/L Alkaline Phosphatase (38-126) U/L Serum Total Protein (6.3-8.2) g/dL Albumin (3.5-5.0) g/dL Micro Results-Entire Visit: Accuchecks Date 09/23/23 Date 09/22/23 Date 09/22/23 Date 09/22/23 Time 22:36 Time 16:46 Time 12:13 - Radiology Exams Ordered Rad Exams-Entire Visit: Radiology Procedures Category Date Time Status HEAD WITHOUT CONTRAST [CT] Stat Exams 09/21/23 12:39 Completed KNEE (3 VIEWS) Stat Exams 09/21/23 12:40 Completed - Procedures and Test Procedures and Tests throughout Hospitalization: Therapy Orders & Screens 09/21/23 15:53 PT Eval & Treat (MD Order) ONCE Reason for Eval:: fall- tripped on rug in home- ? need for rehabd vs HHC vs. OP rehab? Diagnosis: fall, Knee pain 09/22/23 10:38 PT Eval & Treat ( Order) ONCE Reason for Eval:: wound care of right knee- blisters Diagnosis: fall, Knee pain Discharge Exam General Appearance: no apparent distress, alert Neurologic Exam: alert, oriented x 3, cooperative, normal mood/affect, nml cerebellar function, sensation nml, No motor deficits Eye Exam: PERRL, EOMI, eyes nml inspection Ears, Nose, Throat Exam: normal ENT inspection, pharynx normal, moist mucous membranes Neck Exam: normal inspection, non-tender, supple, full range of motion Respiratory Exam: normal breath sounds, lungs clear, No respiratory distress Cardiovascular Exam: regular rate/rhythm, normal heart sounds Gastrointestinal/Abdomen Exam: soft, No tenderness, No mass Pelvic Exam: deferred Rectal Exam: deferred Back Exam: normal inspection, normal range of motion, No CVA tenderness, No vertebral tenderness Extremity Exam: normal inspection, normal range of motion, joint swelling (right knee, bruising) Skin Exam: normal color, warm, dry, laceration (right orthodoxy with bruising) Wound Assessment: Skin/Wound Assessment Wound/Incision Assessment Start: 09/21/23 16:08 Text: Status: Active Freq: Q6H Protocol: Document 09/23/23 08:00 ORENCUONG (Rec: 09/23/23 08:14 [facility] [id number]) Wound/Incision Assessment Right Knee Wound Assessment Shift Assessment Wound Type bruises & blisters Wound Stage Non Pressure Wound Dressing Status Dry & Intact Drainage Amount None General Appearance Clean/Dry Primary Dressing Non-Adherent Gauze Pads Secondary Dressing Gauze Roll/Wrap Comment covered with siva bandage; blisters drained per ortho then covered with dressings Right Lateral Head Wound Assessment Shift Assessment Wound Type Abrasion Wound Stage Non Pressure Wound Drainage Amount None General Appearance Well Approximated,Clean/Dry Surrounding Tissue Purple Primary Dressing steri strips Comment bruising to area also noted Wound Photo Photo Taken Yes Date: 09/21/23 Time: 18:21 Final Diagnosis/Problem List - Final Discharge Diagnosis/Problem (1) Knee pain Current Visit: Yes Status: Acute Code(s): M25.569 - PAIN IN UNSPECIFIED KNEE (2) HTN (hypertension) Current Visit: Yes Status: Chronic Code(s): I10 - ESSENTIAL (PRIMARY) HYPERTENSION (3) Type II diabetes mellitus Current Visit: Yes Status: Chronic (4) DJD (degenerative joint disease) Current Visit: Yes Status: Chronic Code(s): M19.90 - UNSPECIFIED OSTE OARTHRITIS, UNSPECIFIED SITE (5) Depression Current Visit: Yes Status: Acute Code(s): F32.A - DEPRESSION, UNSPECIFIED (6) Obesity (BMI 30.0-34.9) Current Visit: Yes Status: Acute Code(s): E66.9 - OBESITY, UNSPECIFIED (7) Facial abrasion Current Visit: Yes Status: Acute Code(s): S00.81XA - ABRASION OF OTHER PART OF HEAD, INITIAL ENCOUNTER (8) Fall Current Visit: Yes Status: Acute Code(s): W19.XXXA - UNSPECIFIED FALL, INITIAL ENCOUNTER (9) Anxiety Current Visit: Yes Status: Acute Code(s): F41.9 - ANXIETY DISORDER, UN SPECIFIED (10) Hypothyroidism Current Visit: Yes Status: Chronic Assessment & Plan: (1) Knee pain Current Visit: Yes Status: Acute Assessment & Plan: - After tripping over rug - XR right knee 3 view right knee demonstrates osteopenia, total knee arthroplasty with intact prosthesis/articulation, mild scattered vascular calcifications, and anterior soft tissue swelling. No other bony, articular, or soft tissue abnormalities. - oxycodone gave in ER- continue at lower dose TID PRN - Tylenol PRN - may use ice pack and elevation - RICE techniques PRN - PT eval - possible need for placement- she does not want this and OK with [facility]- she does live alone - Ortho consult - Hold eliquis d/t bruising 09/21 - Ortho eval - PT eval for ROM and home needs - PT eval for wound care - case management assistance with d/c plan of care - pain well controlled - plan to restart oral anticoagulation tomorrow 09/22 - Per ortho: Blisters popped yesterday. Sterile nonstick dressings applied with a 6 inch Siva wrap. Patient may continue weight bearing as tolerated with a walker. She should hold her Eliquis for 2 days due to the bleeding in her knee soft tissue She may continue range of motion the knee. May ice the knee. May change the dressing as needed. She may shower in 3 days. Return in 1 week for wound check or immediately if starts being infected with redness or drainage of pus like fluid Code(s): M25.569 - PAIN IN UNSPECIFIED KNEE (2) HTN (hypertension) Current Visit: Yes Status: Chronic Assessment & Plan: - BP elevated- did not take meds today- will restart - hydralizine PRN - trend 09/21 - Bp well controlled with home meds today Code(s): I10 - ESSENTIAL (PRIMARY) HYPERTENSION (3) Type II diabetes mellitus Current Visit: Yes Status: Chronic Assessment & Plan: - A1C 6.64- controlled - Oral control- continue (4) DJD (degenerative joint disease) Current Visit: Yes Status: Chronic Assessment & Plan: - tylenol for pain Code(s): M19.90 - UNSPECIFIED OSTEOARTHRITIS, UNSPECIFIED SITE (5) Depression Current Visit: Yes Status: Acute Assessment & Plan: - Continue Zoloft Code(s): F32.A - DEPRESSION, UNSPECIFIED (6) Obesity (BMI 30.0-34.9) Current Visit: Yes Status: Acute Assessment & Plan: - advised ADA diet and exercise control Code(s): E66.9 - OBESITY, UNSPECIFIED (7) Facial abrasion Current Visit: Yes Status: Acute Assessment & Plan: - CT head Impression: Remote lacunar infarcts external capsule bilaterally. No acute intracranial abnormalities - Small abrasion on left orthodoxy- no LOC 09/21 - increased bruising about right eye - LAC with dermabond in ER yesterday Code(s): S00.81XA - ABRASION OF OTHER PART OF HEAD, INITIAL ENCOUNTER (8) Fall Current Visit: Yes Status: Acute Assessment & Plan: - PT eval and treat - consider [facility] 09/22 - discussed about removing rugs as not to trip on them in home - use walker Code(s): W19.XXXA - UNSPECIFIED FALL, INITIAL ENCOUNTER (9) Anxiety Current Visit: Yes Status: Acute Assessment & Plan: - Continue Zoloft Code(s): F41.9 - ANXIETY DISORDER, UNSPECIFIED (10) Hypothyroidism Current Visit: Yes Status: Chronic Assessment & Plan: - Continue synthroid - TSH-4.036- stable Code(s): E03.9 - HYPOTHYROIDISM, UNSPECIFIED - Discharge Discharge Date: 09/23/23 Disposition: Home, Self-Care Condition: Stable Prescriptions: Continue Furosemide [Lasix] 1 ea PO DAILY Sertraline HCl [Zoloft] 1 ea PO DAILY Apixaban [Eliquis 5 mg Tablet] 1 ea PO BID Metoprolol Succinate 25 mg Xl* [Toprol-Xl 25MG Tablets] 1 tab PO HS Ergocalciferol (Vitamin D2) [Vitamin D2] 2 cap PO WEEKLY Rosuvastatin Calcium 1 tab PO HS Glimepiride 2 mg [Amaryl 2 MG] 1 tab PO BID Oxybutynin Chloride [Oxybutynin Chloride ER] 10 mg PO DAILY Nitroglycerin 0.4 mg (Ed) [Nitrostat 0.4 MG (ED)] 0.4 mg SL STAT PRN PRN Reason: Chest Pain Potassium Chloride Tab* [Klor Con] 10 meq PO DAILY Levothyroxine Sodium 100 Mcg [Synthroid 100 Mcg] 100 mcg PO 0700 Additional Instructions: YOU CAN CONTACT VANESSA SHETTY AT [phone] TO DISCUSS MEDICAID TO ASSIST WITH HER MEDICATIONS Patient may continue weightbearing as tolerated with a walker. She should hold her Eliquis for 2 days due to the bleeding in her knee soft tissue,- Restart Wednesday. She may continue range of motion the knee. May ice the knee. May change the dressing as needed. She may shower in 3 days. Return in 1 week with ortho for wound check or immediately if starts being infected with redness or drainage of pus like fluid Follow up with: JAGJIT TAVAREZ [Primary Care Provider] -
[2023-09-25] MEDS ORDERED: VITAMIN D2 PO SCH (10:00)
== END 2023-09-23 10:57 | disposition home or self-care (01) ==
LOC: ED 11:56 → MED SURG 15:09
PROVIDERS: ADMIT Internal Medicine; ATTEND Internal Medicine
DX: M25.561 Pain in right knee (principal); I10 Essential (primary) hypertension; E11.9 Type 2 diabetes mellitus without complications; W19.XXXA Unspecified fall, initial encounter; M19.90 Unspecified osteoarthritis, unspecified site; F32.A Depression, unspecified; E66.9 Obesity, unspecified; S00.81XA Abrasion of other part of head, initial encounter; F41.9 Anxiety disorder, unspecified; E03.9 Hypothyroidism, unspecified; I25.10 Atherosclerotic heart disease of native coronary artery without angina pectoris; I48.91 Unspecified atrial fibrillation; I25.2 Old myocardial infarction; Z79.01 Long term (current) use of anticoagulants; Z79.899 Other long term (current) drug therapy
CPT/HCPCS: 36415; 70450; 73562; 80053; 82947; 83036; 84443; 85027; 93268; 97161; 99202; 99284; G0378; Q3014; A9270-GY

== ENCOUNTER 2023-10-19 08:59 | Observation (INO) | payer MEDICARE ==
[2023-10-19] MEDS ORDERED: Lactated Ringers 1,000 ML IV ONE (09:49)
[2023-10-19] MEDS: Lactated Ringers 1,000 ML IV SCH (10:36)
[2023-10-19] MEDS: TRANEXAMIC 1,000 MG/100ML-NACL 1,000 MG/100 ML PIGGYBACK IV ONE (10:36)
[2023-10-19] MEDS ORDERED: METHYLENE BLUE 10 MG/ML ONE (11:27)
[2023-10-19] MEDS ORDERED: DIPRIVAN 200 MG/20 ML IV ONE (11:33)
[2023-10-19] MEDS ORDERED: Decadron 4 MG INJ ONE (11:34)
[2023-10-19] MEDS ORDERED: Zofran 4 MG/2 ML VIAL ONE (11:34)
[2023-10-19] MEDS ORDERED: Xylocaine-Mpf 2% 5 Ml Vial ONE (11:34)
[2023-10-19] MEDS ORDERED: SUBLIMAZE 100 MCG/2 ML ONE ×2 (11:36→12:44)
[2023-10-19] MEDS ORDERED: KEFZOL 1 GM ONE (11:48)
[2023-10-19] MEDS ORDERED: Hydromorphone 1 mg/ml Injection ONE (12:44)
[2023-10-19 15:11] LABS: Hematocrit 34.6 % (34.1-44.9); Hemoglobin 10.8 g/dL (11.2-15.7); Mean Cell Volume 90.8 fL (79.4-94.8); Mean Corpuscular Hemoglobin 28.3 pg (25.6-32.2); Mean Corpuscular Hgb Concent. 31.2 g/dL (32.2-35.5); Mean Platelet Volume 10.6 fL (9.4-12.3); Platelet Count 177 x10^3/uL (182-369); Red Blood Count 3.81 x10^6/uL (3.93-5.22); Red Cell Distribution Width 14.6 % (11.7-14.4); White Blood Count 5.9 x10^3/uL (3.98-10.04)
--- NOTE | 2023-10-19 15:23 | PCM.HP ---
History of Present Illness - Chief Complaint Chief Complaint: right knee wound Date: 10/19/23 History of Present Illness: is a 83 year old female. Medications & Allergies Home Medications: Home Medication List Furosemide [Lasix] 40 mg PO DAILY 12/10/21 [History Confirmed 10/19/23] Sertraline HCl [Zoloft] 1 ea PO DAILY 12/10/21 [History Confirmed 10/19/23] Apixaban [Eliquis 5 mg Tablet] 1 ea PO BID 01/18/22 [History Confirmed 10/19/23] Metoprolol Succinate 25 mg Xl* [Toprol-Xl 25MG Tablets] 1 tab PO HS 07/20/22 [History Confirmed 10/19/23] Rosuvastatin Calcium 1 tab PO HS 07/20/22 [History Confirmed 10/19/23] Glimepiride 2 mg [Amaryl 2 MG] 1 tab PO DAILY 01/14/23 [History Confirmed 10/19/23] Oxybutynin Chloride [Oxybutynin Chloride ER] 10 mg PO DAILY 01/14/23 [History Confirmed 10/19/23] Nitroglycerin 0.4 mg (Ed) [Nitrostat 0.4 MG (ED)] 0.4 mg SL Q5MIN PRN MR X 3 PRN 09/21/23 [History Confirmed 10/19/23] Levothyroxine Sodium 100 Mcg [Synthroid 100 Mcg] 100 mcg PO 0700 09/22/23 [History Confirmed 10/19/23] Potassium Chloride Tab* [Klor Con] 10 meq PO DAILY 09/22/23 [History Confirmed 10/19/23] Cholecalciferol (Vitamin D3) [Weekly-D] 1,250 mcg PO SA 10/19/23 [History Confi rmed 10/19/23] Hydrocodone/Acetaminophen [Hydrocodone-Acetamin 5-325 mg] 1 tab PO Q6HPRN PRN 10/19/23 [History Confirmed 10/19/23] Allergies/Adverse Reactions: Allergies Allergy/AdvReac Type Severity Reaction Status Date / Time morphine Allergy Vomiting Verified 10/19/23 09:39 - Past Medical History Past Medical History: Yes Neurological History: No Pertinent History ENT History: No Pertinent History Cardiac History: Coronary Artery Disease, Hypertension, Myocardial Infarction ([place]), Other Respiratory History: No Pertinent History Endocrine Medical History: Diabetes Type II Musculoskelatal History: Degenerative Disk Disease, Osteoarthritis GI Medical History: Gallbladder Disease History: No Pertinent History Pyscho-Social History: Anxiety Reproductive Disorders: No Pertinent History Comment: patient intermittent confusion, history pulled from medical record - Past Surgical History Past Surgical History: Yes Neuro Surgical History: No Pertinent History Cardiac History: Cardiac Catheterization, Cardiac Stent Respiratory Surgery: No Pertinent History GI Surgical History: Cholecystectomy Genitourinary Surgical Hx: No Pertinent History Musculskeletal Surgical Hx: Orthopedic Surgery Female Surgical History: Hysterectomy Other Surgical History: RIGHT KNEE - Social History Smoking Status: Former smoker Exposure to second hand smoke: No Alcohol: None Drug Use: none - Social Determinants of Health Will the patient participate in the screening: Yes Do you worry about a steady place to live?: No Do you have any problems with any of the following?: No known problems In the past 12 months,have you had to go without utilities?: No Have you or anyone in your house had to go without enough: No Transportation Issues: No Has anyone in your support network made you feel unsafe?: No Does the patient want assistance with any of the above?: No - Physical Exam Vital Signs: Vital Signs - 24 hr Temp Pulse Resp BP Pulse Ox 10/19/23 14:28 97.6 F 62 16 165/72 10/19/23 14:21 97.6 F 62 16 165/72 10/19/23 10:04 98.2 F 70 16 153/82 96 10/19/23 09:47 98.2 F 70 16 153/82 96 Results - Labs Lab/Micro Results: Lab Results-Last 24 Hours 10/19/23 10/19/23 Range/Units 10:11 14:56 POC Glucometer 98 134 H (74 to 106) mg/dL Microbiology 10/19/23 11:51 Gram Stain - Final Knee - Right 10/19/23 11:51 Gram Stain - Final Knee - Right 10/19/23 11:51 Organism ID (Sequencing 2)([id number]) - Final Knee - Right Not Reportable AFB Susceptibility Testing - Final Not Reportable
[2023-10-19] MEDS ORDERED: Nitrostat 0.4 MG Tablet SL PRN (15:25)
[2023-10-19 15:31] LABS: ANION GAP 9.6 MEQ/L (5-15); Calcium 8.8 mg/dL (8.4-10.2); Creatinine 1 0.8 mg/dL (0.52-1.04); EST GLOMERULAR FILTRATION RATE 72.6 ML/MIN; PREALBUMIN 12.9 mg/dL (17.6-36.0); Potassium 4.6 mmol/L (3.5-5.1)
--- NOTE | 2023-10-19 15:32 | PCM.NOTE ---
Date and Time: 10/19/23 1523 Subjective Assessment: 10/19/23 is a 83 year old female with PMHX of DJD, OA, CAD, IL, HTN, TYpe II DM, depression, and obesity. She presented to the floor today from OR after an I& D with Ortho of right knee. She has a wound vac in place. Antibiotics per ortho. She is to have a PICC line placed for OP antibiotics. They will be here to [place] around 1300 for placement. We were consulted for medical management. She is asking for a purewick as she states the staff do not answer the call light fast enough and she urinates often. Discussed with case management for a bedside commode at home per pt request and this is out of pocket cost per CM. She has no pain at this time. She denies any further concerns at this time. - Review of Systems Constitutional: No Fever, No Chills Eyes: No Symptoms Ears, Nose, & Throat: No Symptoms Respiratory: No Cough, No Short Of Breath Cardiac: No Chest Pain, No Edema, No Syncope Abdominal/Gastrointestinal: No Abdominal Pain, No Nausea, No Vomiting, No Diarrhea Genitourinary Symptoms: No Dysuria Musculoskeletal: Joint Swelling (right knee), No Back Pain, No Neck Pain Skin: No Rash Neurological: No Dizziness, No Focal Weakness, No Sensory Changes Psychological: No Symptoms Endocrine: No Symptoms Hematologic/Lymphatic: No Symptoms Immunological/Allergic: No Symptoms Objective Exam General Appearance: no apparent distress, alert, obese Neurologic Exam: alert, oriented x 3, cooperative, normal mood/affect, nml cerebellar function, sensation nml, No motor deficits Skin Exam: normal color, warm, dry Eye Exam: PERRL, EOMI, eyes nml inspection Ears, Nose, Throat Exam: normal ENT inspection, pharynx normal, moist mucous membranes Neck Exam: normal inspection, non-tender, supple, full range of motion Respiratory Exam: normal breath sounds, lungs clear, No respiratory distress Cardiovascular Exam: regular rate/rhythm, normal heart sounds Gastrointestinal/Abdomen Exam: soft, No tenderness, No mass Extremity Exam: normal inspection, normal range of motion, joint swelling (right knee with wound vac in place) Back Exam: normal inspection, normal range of motion, No CVA tenderness, No vertebral tenderness Pelvic Exam: deferred Rectal Exam: deferred Objective Data Vital Signs: Vital Signs - 24 hr Temp Pulse Resp BP Pulse Ox 10/19/23 14:28 97.6 F 62 16 165/72 10/19/23 14:21 97.6 F 62 16 165/72 10/19/23 10:04 98.2 F 70 16 153/82 96 10/19/23 09:47 98.2 F 70 16 153/82 96 Pain Assessment - Last Documented Pain Intensity 1 Intake and Output: Intake & Output 10/17/23 10/18/23 10/19/23 10/20/23 11:59 11:59 11:59 11:59 Weight 94.4 kg 94.4 kg Lab Results: Lab Results-Last 24 Hours 10/19/23 10/19/23 10/19/23 Range/Units 10:11 14:56 15:08 WBC 5.9 (3.98-10.04) x10^3/uL RBC 3.81 L (3.93-5.22) x10^6/uL Hgb 10.8 L (11.2-15.7) g/dL Hct 34.6 (34.1-44.9) % MCV 90.8 (79.4-94.8) fL MCH 28.3 (25.6-32.2) pg MCHC 31.2 L (32.2-35.5) g/dL RDW 14.6 H (11.7-14.4) % Plt Count 177 L (182-369) x10^3/uL MPV 10.6 (9.4-12.3) fL POC Glucometer 98 134 H (74 to 106) mg/dL Assessment/Plan (1) S/P right knee surgery Current Visit: Yes Status: Acute Assessment & Plan: - I&D today with ortho - Antibiotics per ortho - PICC line to be placed tomorrow - wound vac - pain control - Hold Eliquis until d/c home per ortho - Plan is to d/c tomorrow after PICC line placed per ortho Code(s): Z98.890 - OTHER SPECIFIED POSTPROCEDURAL STATES (2) Obesity (BMI 30.0-34.9) Current Visit: Yes Status: Chronic Assessment & Plan: - advised ADA diet and exercise control Code(s): E66.9 - OBESITY, UNSPECIFIED (3) Anxiety Current Visit: No Status: Acute Assessment & Plan: - Continue Zoloft Code(s): F41.9 - ANXIETY DISORDER, UNSPECIFIED (4) Depression Current Visit: No Status: Acute Assessment & Plan: - Continue Zoloft Code(s): F32.A - DEPRESSION, UNSPECIFIED (5) HTN (hypertension) Current Visit: No Status: Chronic Assessment & Plan: - monitor BP - Continue home meds Code(s): I10 - ESSENTIAL (PRIMARY) HYPERTENSION (6) Hypothyroidism Current Visit: No Status: Chronic Code(s): E03.9 - HYPOTHYROIDISM, UNSPECIFIED (7) Type II diabetes mellitus Current Visit: No Status: Chronic Assessment & Plan: - A1C 6.64- controlled - Oral control- continue
[2023-10-19] MEDS: SYNTHROID 100 MCG PO SCH (17:04)
[2023-10-19] MEDS: Ditropan XL 5 MG PO SCH (17:04)
[2023-10-19] MEDS: Lasix 40 MG PO SCH (17:04)
[2023-10-19] MEDS: Klor Con PO SCH (17:04)
[2023-10-19] MEDS ORDERED: Hydromorphone 1 mg/ml Injection IV PRN (18:59)
[2023-10-19] MEDS: ZOCOR 20MG PO SCH (21:57)
[2023-10-19] MEDS: Toprol-Xl 25MG Tablets PO SCH (21:57)
[2023-10-19] MEDS: ROCEPHIN 2 GM/100 ML NACL 2 GM/100 ML IVPB IV SCH (21:58)
[2023-10-20 07:56] LABS: Hematocrit 36.6 % (34.1-44.9); Mean Cell Volume 93.6 fL (79.4-94.8); Mean Corpuscular Hemoglobin 28.1 pg (25.6-32.2); Mean Corpuscular Hgb Concent. 30.1 g/dL (32.2-35.5); Mean Platelet Volume 11.4 fL (9.4-12.3); Platelet Count 177 x10^3/uL (182-369); Red Blood Count 3.91 x10^6/uL (3.93-5.22); Red Cell Distribution Width 14.6 % (11.7-14.4); White Blood Count 7.7 x10^3/uL (3.98-10.04)
[2023-10-20] MEDS: Amaryl 2 MG PO SCH (07:56)
[2023-10-20] MEDS: ZOLOFT 50 MG TABLET PO SCH (07:57)
[2023-10-20] MEDS: NORCO 5/325 MG PO PRN (08:00)
--- NOTE | 2023-10-20 08:03 | PCM.NOTE ---
Date and Time: 10/20/23 0759 Subjective: Patient with minimal pain today. Has been walking well. Objective: Afebrile vital signs stable Right knee wound shows mild erythema VAC suction intact. Minimal drainage in canister. VAC suction functioning Cultures right knee pending, Gram stain few gram-positive cocci assessment: Improved from right knee bursal abscess Plan:Patient would rather have VAC suction drain changes at the hospital rather than home health if possible.She will be on Rocephin through a PICC line 2 g every 24 hours for 14 daysWhich Will be done at the hospital also unless we have to arrange home health Patient may shower but not immerse the drain. She may resume her Eliquis now Return October for wound check Objective Exam Wound Assessment: Skin/Wound Assessment Wound/Incision Assessment Start: 10/19/23 14:54 Text: Status: Active Freq: Q6H Protocol: Document 10/20/23 02:00 MP (Rec: 10/20/23 04:00 MP [id number]) Wound/Incision Assessment Right Knee Wound Assessment Shift Assessment Wound Stage Non Pressure Wound Comment wound vac in place Objective Data Vital Signs: Vital Signs - 24 hr Temp Pulse Resp BP Pulse Ox 10/20/23 04:00 97.7 F 62 18 138/61 93 L 10/19/23 23:33 97.2 F 68 16 107/54 94 L 10/19/23 20:00 97.6 F 69 18 109/51 93 L 10/19/23 14:28 97.6 F 62 16 165/72 10/19/23 14:21 97.6 F 62 16 165/72 10/19/23 10:04 98.2 F 70 16 153/82 96 10/19/23 09:47 98.2 F 70 16 153/82 96 Pain Assessment - Last Documented Pain Intensity 0 Intake and Output: Intake & Output 10/17/23 10/18/23 10/19/23 10/20/23 11:59 11:59 11:59 11:59 Intake Total 1820 Balance 1820 Weight 94.4 kg 94.4 kg Lab Results: Lab Results-Last 24 Hours 10/19/23 10/19/23 10/19/23 Range/Units 10:11 14:56 15:08 WBC (3.98-10.04) x10^3/uL RBC (3.93-5.22) x10^6/uL Hgb (11.2-15.7) g/dL Hct (34.1-44.9) % MCV (79.4-94.8) fL MCH (25.6-32.2) pg MCHC (32.2-35.5) g/dL RDW (11.7-14.4) % Plt Count (182-369) x10^3/uL MPV (9.4-12.3) fL ESR 52 H (0-20) mm/hr Sodium (135-145) mmol/L Potassium (3.5-5.1) mmol/L Chloride (98-107) mmol/L Carbon Dioxide (22-30) mmol/L Anion Gap (5-15) MEQ/L BUN (7-17) mg/dL Creatinine (0.52-1.04) mg/dL Estimated GFR ML/MIN Glucose (74-106) mg/dL POC Glucometer 98 134 H (74 to 106) mg/dL Calcium (8.4-10.2) mg/dL Prealbumin (17.6-36.0) mg/dL 10/19/23 10/19/23 10/19/23 Range/Units 15:08 15:08 16:38 WBC 5.9 (3.98-10.04) x10^3/uL RBC 3.81 L (3.93-5.22) x10^6/uL Hgb 10.8 L (11.2-15.7) g/dL Hct 34.6 (34.1-44.9) % MCV 90.8 (79.4-94.8) fL MCH 28.3 (25.6-32.2) pg MCHC 31.2 L (32.2-35.5) g/dL RDW 14.6 H (11.7-14.4) % Plt Count 177 L (182-369) x10^3/uL MPV 10.6 (9.4-12.3) fL ESR (0-20) mm/hr Sodium 139 (135-145) mmol/L Potassium 4.6 (3.5-5.1) mmol/L Chloride 105 (98-107) mmol/L Carbon Dioxide 28 (22-30) mmol/L Anion Gap 9.6 (5-15) MEQ/L BUN 12 (7-17) mg/dL Creatinine 0.80 (0.52-1.04) mg/dL Estimated GFR 72.6 ML/MIN Glucose 149 H (74-106) mg/dL POC Glucometer 170 H (74 to 106) mg/dL Calcium 8.8 (8.4-10.2) mg/dL Prealbumin 12.90 L (17.6-36.0) mg/dL 10/19/23 10/20/23 Range/Units 22:19 07:45 WBC (3.98-10.04) x10^3/uL RBC (3.93-5.22) x10^6/uL Hgb (11.2-15.7) g/dL Hct (34.1-44.9) % MCV (79.4-94.8) fL MCH (25.6-32.2) pg MCHC (32.2-35.5) g/dL RDW (11.7-14.4) % Plt Count (182-369) x10^3/uL MPV (9.4-12.3) fL ESR (0-20) mm/hr Sodium (135-145) mmol/L Potassium (3.5-5.1) mmol/L Chloride (98-107) mmol/L Carbon Dioxide (22-30) mmol/L Anion Gap (5-15) MEQ/L BUN (7-17) mg/dL Creatinine (0.52-1.04) mg/dL Estimated GFR ML/MIN Glucose (74-106) mg/dL POC Glucometer 205 H 115 H (74 to 106) mg/dL Calcium (8.4-10.2) mg/dL Prealbumin (17.6-36.0) mg/dL
[2023-10-20 08:07] VITALS: RESP 15
[2023-10-20 08:19] LABS: ALBUMIN 3.7 g/dL (3.5-5.0); ANION GAP 14.3 MEQ/L (5-15); BILIRUBIN,TOTAL 0.5 mg/dL (0.2-1.3); Calcium 8.6 mg/dL (8.4-10.2); Creatinine 1 0.8 mg/dL (0.52-1.04); EST GLOMERULAR FILTRATION RATE 72.6 ML/MIN; Potassium 4.5 mmol/L (3.5-5.1); Total Protein 6.6 g/dL (6.3-8.2)
--- NOTE | 2023-10-20 08:57 | OP ---
SURGERY DATE/TIME: 10/19/2023 [id number] PREOPERATIVE DIAGNOSIS: Right knee prepatellar bursal abscess with possible infection of total knee prosthesis. POSTOPERATIVE DIAGNOSIS: Right knee prepatellar bursal abscess. PROCEDURES PERFORMED: 1) Right knee joint aspiration. 2) Right knee prepatellar bursectomy with wound VAC placement. SURGEON: Arnaud Kenyon MD. ABRASIVE MIXER: Renetta Nicole ANESTHESIA: General. FINDINGS: Purulent fluid with about a 15 mm wound in the anterior knee about 15 mm medial to the total knee incision. There is a smaller 3 mm hole in the skin, 2 cm superior to this, also medial to the knee incision. The fluid from inside the joint was clear. 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 About 1 month ago, she fell on her knee while on Eliquis and developed a large hematoma with blisters. This later became infected and was draining. It had been treated with p.o. antibiotics and was still having significant drainage and it was felt that this could involve her total knee prosthesis. It was planned to aspirate or inject the knee with methylene blue to see if the wounds connected and if so, then it would require incision and drainage of the knee prosthesis. If not, then would treat the bursa only. DESCRIPTION OF PROCEDURE AND FINDINGS: Patient was seen in the holding room. We identified the right knee as correct. This was initialed by me. She was taken to the OR where she had general anesthesia. She was positioned supine. She had sterile prepping of her lateral aspect of her knee, staying outside the zone of erythema. An 18-gauge spinal needle was entered into the joint beneath the patella. This was aspirated with a syringe with clear fluid coming out. The fluid coming out of the wound was very purulent and therefore, it was thought these spaces did not connect. The wound was then cultured with swabs for aerobic, anaerobic, AFB and fungal stains and Gram stain. After the culture was taken, the patient was given 2 g of Kefzol IV. She had sterile prepping and draping of the right lower extremity. Time-out was performed. The larger wound was extended about 1 cm distal in order to be able to get good access with the rongeur, which were then used to rongeur hematoma and soft tissue from the bursal cavity, which extended about 6 cm medial to the medial edge of the patella, about 3 cm distal and lateral. This was then thoroughly irrigated with a pulse lavage saline using 3 L. The wound was then packed with black foam from the back suction drain, which was connected to the 125 mm of continuous suction. ESTIMATED BLOOD LOSS: 50 mL. FLUIDS: Per the Anesthesia record. SPECIMENS: As mentioned above. COMPLICATIONS: None. Plan is for patient to have every third day wound VAC change with Home Health. She will have a PICC line placed and will have Rocephin for 14 days, which will be changed if needed pending cultures and patient will have 23-hour admission while getting all of this arranged.
[2023-10-20] MEDS: ELIQUIS 2.5 MG TABLET PO SCH (10:38)
--- NOTE | 2023-10-20 12:18 | PCM.DS ---
Discharge Summary Date of Admission: 10/19/23 13:43 Date of Discharge: 10/20/23 Admitting Physician: HUSSEIN AGUSTIN MD Consults: Consults on Case 10/19/23 13:43 Consult Physician ROUTINE Primary Care Provider: JAGJIT TAVAREZ Allergies Allergies morphine Allergy (Verified 10/19/23 09:39) Vomiting Hospital Summary - Hospital Course Hospital Course: 10/19/23 is a 83 year old female with PMHX of DJD, OA, CAD, MA, HTN, TYpe II DM, depression, and obesity. She presented to the floor today from OR after an I& D with Ortho of right knee. She has a wound vac in place. Antibiotics per ort ho. She is to have a PICC line placed for OP antibiotics. They will be here to [place] around 1300 for placement. We were consulted for medical management. She is asking for a purewick as she states the staff do not answer the call light fast enough and she urinates often. Discussed with case management for a bedside commode at home per pt request and this is out of pocket cost per CM. She has no pain at this time. She denies any further concerns at this time. 10/20/23 Pt resting in bed. She has been up and walking around. Plan is for op antibiotics at [facility] and wound care every 3 days with PT OP at [facility]. She is doing well and ready to d/c today. Plan is to d/c after picc line placed today. OP antibiotics ordered by Ortho. Ok to resume Eliquis per ortho. Return October 24 for OP appointment. She denies any further concerns at this time. - Vitals & Intake/Output Vital Signs: Vital Signs Temperature 97.7 F 10/20/23 11:56 Pulse Rate 57 L 10/20/23 11:56 Respiratory Rate 15 10/20/23 11:56 Blood Pressure 128/60 10/20/23 11:56 O2 Sat by Pulse Oximetry 94 L 10/20/23 11:56 Intake & Output: Intake & Output 10/18/23 10/19/23 10/20/23 10/21/23 11:59 11:59 11:59 11:59 Intake Total 1939 Balance 1939 Weight 94.4 kg 94.4 kg - Lab Result Diagrams: 10/20/23 07:20 10/20/23 07:20 Lab Results-Last 24 Hrs: Lab Results-Last 24 Hours 10/19/23 10/19/23 10/19/23 Range/Units 14:56 15:08 15:08 WBC 5.9 (3.98-10.04) x10^3/uL RBC 3.81 L (3.93-5.22) x10^6/uL Hgb 10.8 L (11.2-15.7) g/dL Hct 34.6 (34.1-44.9) % MCV 90.8 (79.4-94.8) fL MCH 28.3 (25.6-32.2) pg MCHC 31.2 L (32.2-35.5) g/dL RDW 14.6 H (11.7-14.4) % Plt Count 177 L (182-369) x10^3/uL MPV 10.6 (9.4-12.3) fL ESR 52 H (0-20) mm/hr Sodium (135-145) mmol/L Potassium (3.5-5.1) mmol/L Chloride (98-107) mmol/L Carbon Dioxide (22-30) mmol/L Anion Gap (5-15) MEQ/L BUN (7-17) mg/dL Creatinine (0.52-1.04) mg/dL Estimated GFR ML/MIN Glucose (74-106) mg/dL POC Glucometer 134 H (74 to 106) mg/dL Calcium (8.4-10.2) mg/dL Total Bilirubin (0.2-1.3) mg/dL AST (14-36) U/L ALT (0-35) U/L Alkaline Phosphatase (38-126) U/L Serum Total Protein (6.3-8.2) g/dL Albumin (3.5-5.0) g/dL Prealbumin (17.6-36.0) mg/dL 10/19/23 10/19/23 10/19/23 Range/Units 15:08 16:38 22:19 WBC (3.98-10.04) x10^3/uL RBC (3.93-5.22) x10^6/uL Hgb (11.2-15.7) g/dL Hct (34.1-44.9) % MCV (79.4-94.8) fL MCH (25.6-32.2) pg MCHC (32.2-35.5) g/dL RDW (11.7-14.4) % Plt Count (182-369) x10^3/uL MPV (9.4-12.3) fL ESR (0-20) mm/hr Sodium 139 (135-145) mmol/L Potassium 4.6 (3.5-5.1) mmol/L Chloride 105 (98-107) mmol/L Carbon Dioxide 28 (22-30) mmol/L Anion Gap 9.6 (5-15) MEQ/L BUN 12 (7-17) mg/dL Creatinine 0.80 (0.52-1.04) mg/dL Estimated GFR 72.6 ML/MIN Glucose 149 H (74-106) mg/dL POC Glucometer 170 H 205 H (74 to 106) mg/dL Calcium 8.8 (8.4-10.2) mg/dL Total Bilirubin (0.2-1.3) mg/dL AST (14-36) U/L ALT (0-35) U/L Alkaline Phosphatase (38-126) U/L Serum Total Protein (6.3-8.2) g/dL Albumin (3.5-5.0) g/dL Prealbumin 12.90 L (17.6-36.0) mg/dL 10/20/23 10/20/23 10/20/23 Range/Units 07:20 07:20 07:45 WBC 7.7 (3.98-10.04) x10^3/uL RBC 3.91 L (3.93-5.22) x10^6/uL Hgb 11.0 L (11.2-15.7) g/dL Hct 36.6 (34.1-44.9) % MCV 93.6 (79.4-94.8) fL MCH 28.1 (25.6-32.2) pg MCHC 30.1 L (32.2-35.5) g/dL RDW 14.6 H (11.7-14.4) % Plt Count 177 L (182-369) x10^3/uL MPV 11.4 (9.4-12.3) fL ESR (0-20) mm/hr Sodium 137 (135-145) mmol/L Potassium 4.5 (3.5-5.1) mmol/L Chloride 103 (98-107) mmol/L Carbon Dioxide 24 (22-30) mmol/L Anion Gap 14.3 (5-15) MEQ/L BUN 17 (7-17) mg/dL Creatinine 0.80 (0.52-1.04) mg/dL Estimated GFR 72.6 ML/MIN Glucose 124 H (74-106) mg/dL POC Glucometer 115 H (74 to 106) mg/dL Calcium 8.6 (8.4-10.2) mg/dL Total Bilirubin 0.50 (0.2-1.3) mg/dL AST 28 (14-36) U/L ALT 19 (0-35) U/L Alkaline Phosphatase 45 (38-126) U/L Serum Total Protein 6.6 (6.3-8.2) g/dL Albumin 3.7 (3.5-5.0) g/dL Prealbumin (17.6-36.0) mg/dL 10/20/23 Range/Units 11:27 WBC (3.98-10.04) x10^3/uL RBC (3.93-5.22) x10^6/uL Hgb (11.2-15.7) g/dL Hct (34.1-44.9) % MCV (79.4-94.8) fL MCH (25.6-32.2) pg MCHC (32.2-35.5) g/dL RDW (11.7-14.4) % Plt Count (182-369) x10^3/uL MPV (9.4-12.3) fL ESR (0-20) mm/hr Sodium (135-145) mmol/L Potassium (3.5-5.1) mmol/L Chloride (98-107) mmol/L Carbon Dioxide (22-30) mmol/L Anion Gap (5-15) MEQ/L BUN (7-17) mg/dL Creatinine (0.52-1.04) mg/dL Estimated GFR ML/MIN Glucose (74-106) mg/dL POC Glucometer 100 (74 to 106) mg/dL Calcium (8.4-10.2) mg/dL Total Bilirubin (0.2-1.3) mg/dL AST (14-36) U/L ALT (0-35) U/L Alkaline Phosphatase (38-126) U/L Serum Total Protein (6.3-8.2) g/dL Albumin (3.5-5.0) g/dL Prealbumin (17.6-36.0) mg/dL Micro Results-Entire Visit: Microbiology 10/19/23 11:51 Yeast/Fungus Susceptibility - Final Knee - Right Not Reportable 10/19/23 11:51 Yeast/Fungus Susceptibility - Final Knee - Right Not Reportable 10/19/23 11:51 Gram Stain - Final Knee - Right 10/19/23 11:51 Gram Stain - Final Knee - Right Accuchecks Date 10/20/23 Date 10/20/23 Date 10/19/23 Time 11:56 Time 07:56 Time 17:20 - Procedures and Test Procedures and Tests throughout Hospitalization: Therapy Orders & Screens 10/19/23 12:44 EKG STAT Comment: Diagnosis: right knee wound 10/19/23 14:45 PT Eval & Treat ( Order) ONCE Reason for Eval:: post op right knee Burse abscess Change right knee wound VAC every 3 days starting on October 21 Diagnosis: right knee wound Discharge Exam General Appearance: no apparent distress, alert, obese Neurologic Exam: alert, oriented x 3, cooperative, normal mood/affect, nml cerebellar function, sensation nml, No motor deficits Eye Exam: PERRL, EOMI, eyes nml inspection Ears, Nose, Throat Exam: normal ENT inspection, pharynx normal, moist mucous membranes Neck Exam: normal inspection, non-tender, supple, full range of motion Respiratory Exam: normal breath sounds, lungs clear, No respiratory distress Cardiovascular Exam: regular rate/rhythm, normal heart sounds Gastrointestinal/Abdomen Exam: soft, No tenderness, No mass Pelvic Exam: deferred Rectal Exam: deferred Back Exam: normal inspection, normal range of motion, No CVA tenderness, No vertebral tenderness Extremity Exam: normal inspection, normal range of motion, inflammation (Right knee), swelling Skin Exam: normal color, warm, dry Wound Assessment: Skin/Wound Assessment Wound/Incision Assessment Start: 10/19/23 14:54 Text: Status: Active Freq: Q6H Protocol: Document 10/20/23 08:00 AR (Rec: 10/20/23 10:06 AR [id number]) Wound/Incision Assessment Right Knee Wound Assessment Shift Assessment Wound Stage Non Pressure Wound Dressing Status Dry & Intact Comment AREA RED, WARM TO TOUCH, WOUND VAC IN PLACE Wound Photo Photo Taken No Final Diagnosis/Problem List - Final Discharge Diagnosis/Problem (1) S/P right knee surgery Current Visit: Yes Status: Acute Code(s): Z98.890 - OTHER SPECIFIED POSTPROCEDURAL STATES (2) Obesity (BMI 30.0-34.9) Current Visit: Yes Status: Chronic Code(s): E66.9 - OBESITY, UNSPECIFIED (3) Anxiety Current Visit: No Status: Acute Code(s): F41.9 - ANXIETY DISORDER, UNSPECIFIED (4) Depression Current Visit: No Status: Acute Code(s): F32.A - DEPRESSION, UNSPECIFIED (5) HTN (hypertension) Current Visit: No Status: Chronic Code(s): I10 - ESSENTIAL (PRIMARY) HYPERTENSION (6) Hypothyroidism Current Visit: No Status: Chronic Code(s): E03.9 - HYPOTHYROIDISM, UNSPECIFIED (7) Type II diabetes mellitus Current Visit: No Status: Chronic Assessment & Plan: (1) S/P right knee surgery Current Visit: Yes Status: Acute Assessment & Plan: - I&D today with ortho - Antibiotics per ortho - PICC line to be placed tomorrow - wound vac - pain control - Hold Eliquis until d/c home per ortho - Plan is to d/c tomorrow after PICC line placed per ortho - 10/19 - PICC line placement - OP antibiotics set up and ordered by ortho - Cont Eliquis - F/u for OP f/u appointment with Ortho and woud care with PT Code(s): Z98.890 - OTHER SPECIFIED POSTPROCEDURAL STATES (2) Obesity (BMI 30.0-34.9) Current Visit: Yes Status: Chronic Assessment & Plan: - advised ADA diet and exercise control Code(s): E66.9 - OBESITY, UNSPECIFIED (3) Anxiety Current Visit: No Status: Acute Assessment & Plan: - Continue Zoloft Code(s): F41.9 - ANXIETY DISORDER, UNSPECIFIED (4) Depression Current Visit: No Status: Acute Assessment & Plan: - Continue Zoloft Code(s): F32.A - DEPRESSION, UNSPECIFIED (5) HTN (hypertension) Current Visit: No Status: Chronic Assessment & Plan: - monitor BP - Continue home meds Code(s): I10 - ESSENTIAL (PRIMARY) HYPERTENSION (6) Hypothyroidism Current Visit: No Status: Chronic Code(s): E03.9 - HYPOTHYROIDISM, UNSPECIFIED - Continue Synthroid (7) Type II diabetes mellitus Current Visit: No Status: Chronic Assessment & Plan: - A1C 6.64- controlled - Oral control- continue - Discharge Discharge Date: 10/20/23 Disposition: Home, Self-Care Condition: Stable Prescriptions: New Ceftriaxone Sodium [Rocephin 2 gm/100 ml NaCl] 2 gm IV Q24H22 iv piggy Continue Furosemide [Lasix] 40 mg PO DAILY Sertraline HCl [Zoloft] 1 ea PO DAILY Apixaban [Eliquis 5 mg Tablet] 1 ea PO BID Metoprolol Succinate 25 mg Xl* [Toprol-Xl 25MG Tablets] 1 tab PO HS Rosuvastatin Calcium 1 tab PO HS Glimepiride 2 mg [Amaryl 2 MG] 1 tab PO DAILY Oxybutynin Chloride [Oxybutynin Chloride ER] 10 mg PO DAILY Nitroglycerin 0.4 mg (Ed) [Nitrostat 0.4 MG (ED)] 0.4 mg SL Q5MIN PRN MR X 3 PRN PRN Reason: Chest Pain Potassium Chloride Tab* [Klor Con] 10 meq PO DAILY Levothyroxine Sodium 100 Mcg [Synthroid 100 Mcg] 100 mcg PO 0700 Hydrocodone/Acetaminophen [Hydrocodone-Acetamin 5-325 mg] 1 tab PO Q6HPRN PRN PRN Reason: Pain Cholecalciferol (Vitamin D3) [Weekly-D] 1,250 mcg PO SA Follow up with: JAGJIT TAVAREZ [Primary Care Provider] -
[2023-10-20] MEDS: ROCEPHIN 2 GM/100 ML NACL 2 GM/100 ML IVPB IV SCH (15:41)
[2023-10-20 16:49] VITALS: BP 115/60; PULSE 59; TEMP 97.5; O2SAT 97
[2023-10-20] MEDS ORDERED: ROCEPHIN 2 GM/100 ML NACL 2 GM/100 ML IVPB IV SCH (22:00)
[2023-10-23] MEDS ORDERED: VITAMIN D2 PO SCH (10:00)
== END 2023-10-20 16:38 | disposition home or self-care (01) ==
LOC: SDC 08:59 → MED SURG 13:43
PROVIDERS: ADMIT Internal Medicine; ATTEND Internal Medicine
DX: M70.51 Other bursitis of knee, right knee (principal); L02.415 Cutaneous abscess of right lower limb; I25.10 Atherosclerotic heart disease of native coronary artery without angina pectoris; I10 Essential (primary) hypertension; E11.9 Type 2 diabetes mellitus without complications; E66.9 Obesity, unspecified; F41.9 Anxiety disorder, unspecified; F32.A Depression, unspecified; E03.9 Hypothyroidism, unspecified; Z79.899 Other long term (current) drug therapy
CPT/HCPCS: 01756; 20610; 27340; 36415; 80048; 80053; 82947; 84134; 85027; 85652; 87046; 87070; 87075; 87116; 87205; 87206; 93005; 97161; 97605; 99100; G0378; Q3014; J0690; J0696; J1100; J1170; J1642; J2405; J2704; J3010; A9270-GY; Q9968